=== PATIENT | male | born 1940 | race Caucasian/White ===

== ENCOUNTER → 2017-02-19 | Outpatient (CLI) | payer MEDICARE ==
[2017-02-19 11:06] LABS: Basophils # (A) 0.1 k/uL (0-0.2); Basophils % (A) 1 %; CHCM 32.8; Eosinophils # (A) 0.2 k/uL (0-0.7); Eosinophils % (A) 4 %; HCT 48.6 % (39.0-53.0); HDW 2.35; HGB 15.7 gm/dL (13.0-17.5); Luc # (Auto) 0.17; Luc % (Auto) 3; Lymphocytes # (A) 1.6 k/uL (1.0-4.8); Lymphocytes % (A) 25 %; MCH 29.7 pg (25.0-35.0); MCHC 32.2 g/dL (31.0-37.0); Mean Platelet Volume 7.3; Monocytes # (A) 0.6 k/uL (0-1.0); Monocytes % (A) 9 %; Neutrophils # (A) 3.8 k/uL (1.3-7.7); Neutrophils % (A) 59 %; RBC 5.28 m/uL (4.30-5.90); RDW 12.9 % (11.5-15.5); WBC 6.5 k/uL (3.8-10.6); WBC (Perox) 6.23
[2017-02-19 11:17] LABS: ALT 60 U/L (21-72); AST 32 U/L (17-59); Alkaline Phosphatase 88 U/L (38-126); Amylase 54 U/L (30-110); Anion Gap 10 mmol/L; Blood Urea Nitrogen 18 mg/dL (9-20); Calcium 9.7 mg/dL (8.4-10.2); Carbon Dioxide 27 mmol/L (22-30); Chloride 104 mmol/L (98-107); Glucose 111 mg/dL (74-99); Non-African American GFR(MDRD) >60 (>60 ml/min/1.73 sqM); Potassium 4.5 mmol/L (3.5-5.1); Sodium 141 mmol/L (137-145); Total Bilirubin 0.8 mg/dL (0.2-1.3); Total Protein 6.9 g/dL (6.3-8.2)
--- NOTE | 2017-02-19 13:00 | CT ---
EXAMINATION TYPE: CT abdomen w con DATE OF EXAM: 02/19/2017 11:52 AM COMPARISON: NONE INDICATION: Abdomen pain DLP: 793.9 mGycm, Automated exposure control for dose reduction was used. CONTRAST: 100 mL of Omnipaque 300. Study performed with Oral Contrast TECHNIQUE: Axial images were obtained from above the diaphragm to the pubic rami in the axial plane a t 5 mm thick sections. Reconstructed images are reviewed on the computer in the coronal plane. FINDINGS: Limited CT sections are obtained the lung bases. The lung bases are clear. CT ABDOMEN: Liver: Normal Spleen: Normal Pancreas: Normal Adrenal glands: The adrenal glands are normal. Gallbladder: Large gallstones at the neck of the gallbladder. Kidneys: No masses are evident. Hydronephrosis present. This is mild on the right and moderate on the left. Some peripelvic cyst may be present at these levels as well. Loops of bowel distended with oral contrast appear normal. No cysts are present. Delayed images were obtained through the kidneys, which remain unremarkable. Aorta: Vascular calcification is within the aorta. Inferior vena cava: Normal. 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 Additional nonunion fractures ar e in the posterior lateral right mid to lower ribs. There is likely some focal eventration of the rig ht diaphragm. IMPRESSIONS: 1. Cholelithiasis. 2. Normal. Loops of bowel. 3. Mild right and moderate to more marked hydronephrosis bilateral kidneys.
== END | disposition home or self-care (01) ==
LOC: RADCTMAIN 10:30
PROVIDERS: ATTEND Internal Medicine Geriatric Medicine
DX: K80.20 Calculus of gallbladder without cholecystitis without obstruction (principal); N13.30 Unspecified hydronephrosis
CPT/HCPCS: 80053; 82150; 83690; 85025; 74160; 36415; Q9967

== ENCOUNTER 2017-02-28 12:56 | Day surgery (SDC) | payer MEDICARE ==
[2017-02-28 13:19] VITALS: RESP 16
[2017-02-28] MEDS ORDERED: HYDROmorphone 1 MG/ML 1 ML SYRINGE IVP PRN (13:24)
[2017-02-28] MEDS ORDERED: LACTATED RINGERS 1,000 ML IV SCH (13:24)
[2017-02-28] MEDS ORDERED: SCOPOLAMINE 1.5MG/72HR PATCH TRANSDERM ONE (13:24)
[2017-02-28] MEDS ORDERED: ONDANSETRON 4 MG/2 ML VIAL IVP ONE (13:24)
[2017-02-28] MEDS ORDERED: LIDOCAINE 1% 20 ML VIAL (10MG/ML) FOR IV START INTRADERMA PRN (13:24)
[2017-02-28] MEDS ORDERED: MIDAZOLAM 2 MG/2 ML VIAL IV PRN (13:24)
[2017-02-28] MEDS ORDERED: DEXAMETHASONE SOD PHOSPHATE 10 MG/ML 1 ML VIAL IV ONE (13:24)
[2017-02-28] MEDS ORDERED: HEPARIN SODIUM,PORCINE 5,000 UNIT/ML 1 ML VIAL SQ ONE (14:22)
[2017-02-28] MEDS ORDERED: NEOSTIGMINE 1 MG/ML 10 ML VIAL ONE (17:28)
[2017-02-28] MEDS ORDERED: SUCCINYLCHOLINE CHLORIDE 100 MG/5 ML SYR IV ONE (17:28)
[2017-02-28] MEDS ORDERED: fentaNYL (PF) 50 MCG/ML 2 ML AMP ONE (17:28)
[2017-02-28] MEDS ORDERED: GLYCOPYRROLATE 0.2 MG/ML 2 ML VIAL ONE (17:28)
[2017-02-28] MEDS ORDERED: ROCURONIUM BROMIDE 10 MG/ML 10 ML VIAL IV ONE (17:28)
[2017-02-28] MEDS ORDERED: PROPOFOL 10 MG/ML 20 ML VIAL IV ONE (17:28)
[2017-02-28] MEDS ORDERED: MIDAZOLAM 2 MG/2 ML VIAL ONE (17:28)
[2017-02-28] MEDS ORDERED: LIDOCAINE 1% INJ 10MG/ML (20 ML MDV) ONE (17:28)
[2017-02-28] MEDS ORDERED: BUPIVACAIN-EPI 0.25%-1:200,000 30 ML VIAL SQ ONE (17:40)
[2017-02-28] MEDS ORDERED: SODIUM CHLORIDE 0.9% 50 ML with ceFAZolin 2,000 MG IV ONE ×2 (17:52)
[2017-02-28] MEDS ORDERED: LACTATED RINGERS 1,000 ML IV ONE (18:27)
--- NOTE | 2017-02-28 18:52 | P.OP ---
Date of Procedure: 02/28/17 Preoperative Diagnosis: Right upper quadrant pain Symptomatic cholelithiasis Postoperative Diagnosis: Same Procedure(s) Performed: Laparoscopic cholecystectomy Implants: NA Anesthesia: GETA, local Surgeon: Mary Ann Vargas Estimated Blood Loss (ml): 5 Pathology: other Condition: other (ASA3) Disposition: PACU Indications for Procedure: 76 years old male presents with right upper quadrant pain. Workup showed gallstones. Informed consent obtained and patient elected to undergo laparoscopic cholecystectomy possible open. The risks, benefits and potential complications including bleeding, infection, inadvertent bile duct injuries were explained to the patient Description of Procedure: The patient was brought to the operating room and placed in supine position with both arms out. General anesthesia with endotracheal intubation was performed as per anesthesia team. Chlorhexidine was used to prep the abdomen followed by application of sterile drapes. A timeout was performed to verify correct patient and correct procedure. Patient was confirmed to receive perioperative IV antibiotics , heparin 5000 units subcutaneous injection and bilateral SCDs were placed. A 5 mm skin incision was made below the left costal margin at the anterior axillary line. A Veress needle was inserted and pneumoperitoneum was established to a pressure of 15 mmHg. A 5 mm Optiview trocar was loaded on a 5 mm 30 laparoscope and the peritoneal cavity was entered under direct vision using the Optiview technique. Additional 5 mm trocar was placed in the supraumbilical location and two 5 mm trocars along the right subcostal margin. The left 5 mm trocar was upsized to 10mm. The patient was placed in reverse Trendelenburg with right side up. The fundus of the gallbladder was grasped with an atraumatic grasper and was retracted over the dome of the liver. The infundibulum was grasped with an atraumatic grasper and retracted towards the pelvis to expose the Calot's triangle. Lateral and medial peritoneal attachment of the gallbladder bladder was dissected. Circumferential dissection was carried out around the cystic artery and the cystic duct to obtain adequate length for clip application. All the surrounding fibrofatty tissue were removed. Critical view was obtained with cystic duct and cystic artery as the only two structures entering the gallbladder. Two clips were applied on the patient's side and one on the specimen side on the cystic duct first followed by the cystic artery. Endoshears were used to divide the cystic duct and the cystic artery. The gallbladder was taken off the liver bed using a L-hook. It was placed in an endocatch specimen bag and removed through the 10mm port. The gallbladder was passed off as a specimen. The abdominal cavity was inspected. The clips on the cystic duct and cystic artery stump were intact and no bleeding noted from the liver bed. All the trocar sites were examined and no evidence of bleeding. The 10mm port site was closed with two transfascial sutures of 0 Vicryl using a Adin Blu device. The pneumoperitoneum was evacuated and all the trocars were removed. Local anesthetic was infiltrated along the trocar sites and incisions were closed using 4-0 Monocryl followed by application of Dermabond skin glue. The sponge, instrument and needle count were correct x2. Patient was extubated and taken to post anesthesia care unit in stable condition.
[2017-02-28 18:53] VITALS: TEMP 96.8
[2017-02-28 21:01] VITALS: BP 151/75; PULSE 53
== END 2017-02-28 21:01 | disposition home or self-care (01) ==
LOC: OR 12:56
PROVIDERS: ATTEND Surgery
DX: K80.10 Calculus of gallbladder with chronic cholecystitis without obstruction (principal); I10 Essential (primary) hypertension; E78.00 Pure hypercholesterolemia, unspecified; I25.10 Atherosclerotic heart disease of native coronary artery without angina pectoris; K21.9 Gastro-esophageal reflux disease without esophagitis; N40.0 Benign prostatic hyperplasia without lower urinary tract symptoms; Z95.5 Presence of coronary angioplasty implant and graft; Z79.899 Other long term (current) drug therapy; Z79.82 Long term (current) use of aspirin; I25.2 Old myocardial infarction
CPT/HCPCS: 88304; 47562; J2250; J1644; J1100; J2710; J2405; J2001; J3010; J0690; J0330; J2704

== ENCOUNTER 2017-03-01 08:25 | Emergency (ER) | payer MEDICARE ==
[2017-03-01 08:37] VITALS: TEMP 98.9
--- NOTE | 2017-03-01 09:14 | ED ---
General Adult HPI - General Chief complaint: Urogenital Stated complaint: POST OP GALLBLADDER Sx, UNABLE TO URINATE Time Seen by Provider: 03/01/17 08:58 Source: patient, RN notes reviewed Mode of arrival: ambulatory Limitations: no limitations - History of Present Illness Initial comments: Patient is 76-year-old male who presents emergency room today with a chief complaint of urinary retention. He does admit that he had a cholecystectomy performed yesterday. He admits he was able to urinate before he left the hospital last night. States tried to get up multiple times throughout the night to go to the bathroom but was only able to void small amounts. States only able to afford small amount here in the emergency room. Patient was bladder scan showing greater than 900 mL. Patient does admit some discomfort in lower abdomen due to this. He denies any other complaints associated symptoms. Patient denies any recent fever, chills, shortness of breath, chest pain, back pain, nausea or vomiting, numbness or tingling, dysuria or hematuria , constipation or diarrhea, headaches or visual changes, or any other complaints. - Related Data Home Medications Medication Instructions Recorded Confirmed Atenolol 25 mg PO DAILY 02/28/17 02/28/17 Omeprazole [PriLOSEC] 20 mg PO AC-BRKFST 02/28/17 02/28/17 Quinapril HCl [Accupril] 20 mg PO BID 02/28/17 02/28/17 Simvastatin [Zocor] 20 mg PO HS 02/28/17 02/28/17 Tamsulosin [Flomax] 1 tab PO DAILY 02/28/17 02/28/17 Previous Rx's Medication Instructions Recorded Docusate [Colace] 100 mg PO BID #30 capsule 02/28/17 Hydrocodone/Acetaminophen [Moro 1 each PO Q6HR PRN #30 tab 02/28/17 5-325] Allergies Allergy/AdvReac Type Severity Reaction Status Date / Time No Known Allergies Allergy Verified 02/28/17 13:23 Review of Systems ROS Statement: Those systems with pertinent positive or pertinent negative responses have been documented in the HPI. ROS Other: All systems not noted in ROS Statement are negative. Past Medical History Past Medical History: Hearing Disorder / Deafness, Hypertension, Myocardial Infarction ([place]) Additional Past Medical History / Comment(s): HAD MS 09/01/98/ / BILAT HEARING AIDS. CTR BILAT. Last Myocardial Infarction Date:: 1997 History of Any Multi-Drug Resistant Organisms: None Reported Past Surgical History: Heart Catheterization, Hernia Repair, Orthopedic Surgery Additional Past Surgical History / Comment(s): RIGHT KNEE ARTHROSCOPY 6 YRS AGO Past Anesthesia/Blood Transfusion Reactions: No Reported Reaction Past Psychological History: No Psychological Hx Reported Smoking Status: Former smoker Past Alcohol Use History: Rare Past Drug Use History: None Reported General Exam - General Exam Comments Initial Comments: General: The patient is awake and alert, in no distress, and does not appear acutely ill. Eye: Pupils are equal, round and reactive to light, extra-ocular movements are intact. No nystagmus. There is normal conjunctiva bilaterally. No signs of icterus. Ears, nose, mouth and throat: There are moist mucous membranes and no oral lesions. Neck: The neck is supple, there is no tenderness or JVD. Cardiovascular: There is a regular rate and rhythm. No murmur, rub or gallop is appreciated. Respiratory: Lungs are clear to auscultation, respirations are non-labored, breath sounds are equal. No wheezes, stridor, rales, or rhonchi. Gastrointestinal: Surgical incisions appear to be healing well there is no redness and irritation or inflammation. No sign of infection. Patient does have some mild discomfort suprapubically over the bladder. No rebound tenderness. No guarding. No CVA tenderness. Musculoskeletal: Normal ROM, no tenderness. Strength 5/5. Sensation intact. Pulses equal bilaterally 2+. Neurological: A&O x 3. CN II-XII intact, There are no obvious motor or sensory deficits. Coordination appears grossly intact. Speech is normal. Skin: Skin is warm and dry and no rashes or lesions are noted. Psychiatric: Cooperative, appropriate mood & affect, normal judgment. Limitations: no limitations Course Vital Signs 03/01/17 08:35 Temperature 98.9 F Pulse Rate 57 L Respiratory 20 Rate Blood Pressure 196/88 O2 Sat by Pulse 95 Oximetry Medical Decision Making - Medical Decision Making Patient's a ladder scan shows greater than 900 mL. Patient's Craig is produced greater than 800 mL patient is feeling much better. Patient blood pressure improved after Craig insertion. Patient will be discharged home with leg bag. He is advised to contact a surgeon later today. Advised return for any other concerns. Disposition Clinical Impression: Urinary retention Disposition: HOME SELF-CARE Condition: Good Instructions: Urinary Retention in Men (ED) Additional Instructions: Please follow-up with her surgeon over the next 1-2 days. Please eat Craig in place until follow-up appointment. Please return to emergency room for any other concerns. Referrals: Segundo Phelps MD [Primary Care Provider] - 1-2 days Mary Ann Vargas MD [STAFF PHYSICIAN] - 1-2 days Time of Disposition: 09:45
[2017-03-01 10:13] VITALS: BP 152/70; PULSE 63; RESP 18
== END 2017-03-01 10:12 | disposition home or self-care (01) ==
LOC: EC 08:25
DX: R33.9 Retention of urine, unspecified (principal); I10 Essential (primary) hypertension; Z98.890 Other specified postprocedural states; Z87.891 Personal history of nicotine dependence; Z79.899 Other long term (current) drug therapy
CPT/HCPCS: 51702; 51798; 99283

== ENCOUNTER 2018-04-21 13:21 | Emergency (ER) | payer MEDICARE ==
[2018-04-21 13:35] VITALS: BP 152/75; PULSE 54; RESP 18; TEMP 97.8
[2018-04-21] MEDS ORDERED: LIDOCAINE 1% INJ 10MG/ML (20 ML MDV) SQ STA (14:06)
[2018-04-21] MEDS ORDERED: AMOXICILLIN 500MG STARTER PACK 3 CAP BTL PO STA (14:07)
--- NOTE | 2018-04-21 14:49 | ED ---
ENT HPI - General Chief complaint: ENT Stated complaint: Facial Injury Time Seen by Provider: 04/21/18 13:37 Source: patient, RN notes reviewed, old records reviewed Mode of arrival: ambulatory Limitations: no limitations - History of Present Illness Initial comments: Patient is a 69-year-old male with a history of lip laceration. Patient reports he was working with his stools and 1 pounds back forward and hit him in the mouth. He reports that he chipped teeth #8 and 9. He states that his teeth went through his lip. He reports a laceration over the lower lip and the inner lower lip. He does have a point with a dentist tomorrow. No other injury. - Related Data Home Medications Medication Instructions Recorded Confirmed Atenolol 25 mg PO DAILY 02/28/17 04/21/18 Omeprazole [PriLOSEC] 20 mg PO AC-BRKFST 02/28/17 04/21/18 Quinapril HCl [Accupril] 20 mg PO BID 02/28/17 04/21/18 Simvastatin [Zocor] 20 mg PO HS 02/28/17 04/21/18 Previous Rx's Medication Instructions Recorded Amoxicillin 500 mg PO Q8H #30 capsule 04/21/18 Allergies Allergy/AdvReac Type Severity Reaction Status Date / Time No Known Allergies Allergy Verified 04/21/18 13:35 Review of Systems ROS Statement: Those systems with pertinent positive or pertinent negative responses have been documented in the HPI. ROS Other: All systems not noted in ROS Statement are negative. Past Medical History Past Medical History: Hearing Disorder / Deafness, Hypertension, Myocardial Infarction ([place]) Additional Past Medical History / Comment(s): HAD [place] 09/01/98/ ANGIOPLASTY / BILAT HEARING AIDS. CTR BILAT. Last Myocardial Infarction Date:: 1997 History of Any Multi-Drug Resistant Organisms: None Reported Past Surgical History: Heart Catheterization, Hernia Repair, Orthopedic Surgery Additional Past Surgical History / Comment(s): RIGHT KNEE ARTHROSCOPY 6 YRS AGO Past Anesthesia/Blood Transfusion Reactions: No Reported Reaction Past Psychological History: No Psychological Hx Reported Smoking Status: Former smoker Past Alcohol Use History: Rare Past Drug Use History: None Reported General Exam - General Exam Comments Initial Comments: Patient's a pleasant 69-year-old male. No acute distress. Limitations: no limitations General appearance: alert, in no apparent distress Head exam: Present: atraumatic, normocephalic, normal inspection Eye exam: Present: normal appearance, PERRL, EOMI. Absent: scleral icterus, conjunctival injection, periorbital swelling ENT exam: Present: mucous membranes moist, other (Chipped tooth #8 and 9.). Absent: normal exam (2 similar laceration over the outer lower lip, through and through.) Neck exam: Present: normal inspection. Absent: tenderness, meningismus, lymphadenopathy Respiratory exam: Present: normal lung sounds bilaterally. Absent: respiratory distress, wheezes, rales, rhonchi, stridor Cardiovascular Exam: Present: regular rate, normal rhythm, normal heart sounds. Absent: systolic murmur, diastolic murmur, rubs, gallop, clicks GI/Abdominal exam: Present: soft, normal bowel sounds. Absent: distended, tenderness, guarding, rebound, rigid Extremities exam: Present: normal inspection, full ROM, normal capillary refill. Absent: tenderness, pedal edema, joint swelling, calf tenderness Back exam: Present: normal inspection Neurological exam: Present: alert, oriented X3, CN II-XII intact Psychiatric exam: Present: normal affect, normal mood Course Vital Signs 04/21/18 13:32 Temperature 97.8 F Pulse Rate 54 L Respiratory 18 Rate Blood Pressure 152/75 O2 Sat by Pulse 96 Oximetry Procedures - Laceration Laceration #1 Site: lip, oral Size (cm): 2 Description: linear Depth: [id number] Anesthetic Used: lidocaine 1% Anesthesia Technique: local infiltration Amount (mls): 3 Pre-repair: wound explored, irrigated extensively Type of Sutures: nylon, other (rapid) Size of Sutures: 5-0 Number of Sutures: 7 (4 absorbable) Technique: simple, interrupted Patient Tolerated Procedure: well, no complications Medical Decision Making - Medical Decision Making 77-year-old male presents emergency Department chief complaint of a lip laceration and broken teeth. Ventricular particles and it came back and him in the mouth. His fractured teeth #8 and 9. We'll start the Patient on antibiotics. I did thoroughly irrigate and clean the wound. Laceration was repaired with 4 internal sutures and 3 external sutures. Discussed appropriate follow-up with his dentist. Discussed return parameters. Patient understands treatment plan will comply. Disposition Clinical Impression: Broken teeth, Lip laceration Disposition: HOME SELF-CARE Condition: Good Instructions: Laceration (ED) Additional Instructions: Patient should do salt water rinses of the mouth periodically throughout today. Soft foods. No use of straw. Patient should take the antibiotics as prescribed. Cool compresses over the lip today. Return to emergency department if any alarming signs or symptoms occur. Please return to the emergency room in 7 days to have sutures removed. Please leave wound covered for the first 24-48 hours and then leave open to air after that time. Please use clean soap and water to clean the suture area to prevent scabbing over the top of your sutures. Please watch for any signs of infection which may include but not limited to increased pain, swelling, redness, fever or chills. Please return to the emergency room if any signs of infection do occur. Please return to the emergency room for any other concerns or complications. Prescriptions: Amoxicillin 500 mg PO Q8H #30 capsule Is patient prescribed a controlled substance at d/c from ED?: No When asked, does pt state using other controlled substances?: No If prescribed controlled substance>3 days was MAPS reviewed?: No If opioid is for acute pain is fill amount 7 days or less?: No If Rx opioid, was Start Talking consent form obtained?: No Referrals: Segundo Phelps MD [Primary Care Provider] - 1-2 days Time of Disposition: 14:48
== END 2018-04-21 14:55 | disposition home or self-care (01) ==
LOC: EC 13:21
DX: S02.5XXA Fracture of tooth (traumatic), initial encounter for closed fracture (principal); S01.511A Laceration without foreign body of lip, initial encounter; I10 Essential (primary) hypertension; I25.2 Old myocardial infarction; H91.90 Unspecified hearing loss, unspecified ear; Z87.891 Personal history of nicotine dependence; Z79.899 Other long term (current) drug therapy; W22.8XXA Striking against or struck by other objects, initial encounter; Y92.71 Barn as the place of occurrence of the external cause
CPT/HCPCS: 99283; 12011; J2001

== ENCOUNTER → 2018-08-28 | Outpatient (CLI) | payer MEDICARE ==
[2018-08-28 17:21] LABS: HGB 16.6 gm/dL (13.0-17.5); MCHC 33.2 g/dL (31.0-37.0); MCV 90.4 fL (80.0-100.0); Mean Platelet Volume 7.5; Platelet Count 209 k/uL (150-450); RBC 5.52 m/uL (4.30-5.90); RDW 13.4 % (11.5-15.5); WBC 9.2 k/uL (3.8-10.6)
[2018-08-28 17:40] LABS: Calcium 10.2 mg/dL (8.4-10.2); Potassium 4.5 mmol/L (3.5-5.1)
== END | disposition home or self-care (01) ==
LOC: LABWHC1 16:52
PROVIDERS: ATTEND Internal Medicine Interventional Cardiology
DX: I25.10 Atherosclerotic heart disease of native coronary artery without angina pectoris (principal)
CPT/HCPCS: 36415; 80048; 84484; 85027

== ENCOUNTER 2018-09-10 10:35 | Day surgery (SDC) | payer MEDICARE ==
[2018-09-03 11:34] VITALS: BMI 25.8
[~2018-09-10 10:35] MED LIST: ALPRAZolam 0.25 MG TAB PO PRN; ALPRAZolam 0.5 MG TAB PO PRN; ASPIRIN 325 MG TAB PO ONE; ATORVASTATIN 80 MG TAB PO ONE; NITROGLYCERIN SL TABS 0.4 MG TAB SUBLINGUAL PRN; SODIUM CHLORIDE 0.9% 1,000 ML in EMPTY BAG 1 BAG IV ONE
[2018-09-10 11:05] VITALS: TEMP 98.2
[2018-09-10] MEDS ORDERED: MIDAZOLAM 2 MG/2 ML VIAL ONE (11:56)
[2018-09-10] MEDS ORDERED: diphenhydrAMINE 50 MG/ML 1 ML VIAL ONE (11:56)
[2018-09-10] MEDS ORDERED: VERAPAMIL 2.5 MG/ML 2 ML AMP ONE (11:56)
[2018-09-10] MEDS ORDERED: LIDOCAINE 1% INJ 10MG/ML (20 ML MDV) ONE (11:56)
[2018-09-10] MEDS ORDERED: MIDAZOLAM 2 MG/2 ML VIAL IV ONE (12:25)
[2018-09-10] MEDS ORDERED: diphenhydrAMINE 50 MG/ML 1 ML VIAL IVP ONE (12:25)
[2018-09-10] MEDS ORDERED: LIDOCAINE 1% INJ 10MG/ML (20 ML MDV) SQ ONE (12:34)
[2018-09-10] MEDS ORDERED: VERAPAMIL SYRINGE (5 MG/10 ML) INTRAARTER ONE (12:34)
[2018-09-10] MEDS ORDERED: HEPARIN SODIUM 1,000 UN/ML (10ML VL) ONE (12:34)
[2018-09-10] MEDS ORDERED: HEPARIN SODIUM 1,000 UN/ML (10ML VL) IV ONE (12:38)
[2018-09-10] MEDS ORDERED: IOPAMIDOL-370 100ML BTL INJ ONE (12:51)
[2018-09-10] MEDS ORDERED: RX INFO: IV CONTRAST WAS GIVEN 1 EACH MISC MISCELLANE PRN (13:16)
[2018-09-10] MEDS ORDERED: SODIUM CHLORIDE 0.9% 1,000 ML IV SCH (13:30)
--- NOTE | 2018-09-10 14:13 | CC ---
CARDIAC CATHETERIZATION REPORT DATE OF SERVICE: 09/10/2018 PROCEDURE: Left heart catheterization, coronary angiography, left ventriculography. PERFORMED BY: Dr. Chapin Azul. CLINICAL INFORMATION: Mr. Galo Brown is a 78-year-old gentleman with a known history of CAD, previous anterolateral TN with a disease involving a major diagonal branch, which was a culprit vessel. This was stented with a bare metal stent in 1997 and since then he is noted to have an anteroapical hypokinesia with ejection fraction in the 40%-45% range. He has been doing fairly well, but recently had a severe bout of diaphoresis, chest pressure after doing some heavy work. The symptoms have been occurring more frequently and therefore he was advised cardiac catheterization after due discussion. Risks, benefits, options and rationale were explained to the patient and . PROCEDURE NOTE: Under local anesthesia and strict aseptic precautions, a 6-Austrian introducer was placed in the right radial artery. Using a JL 3.5 and JR4 Flaquito type catheters, I performed coronary angiography and a pigtail catheter was used to perform left ventriculography. The sheath was taken out and TR band applied as per protocol. Patient tolerated procedure well without complication. He received include 2500 units of heparin intravenously. Results were discussed with the patient and family. CARDIAC CATHETERIZATION FINDINGS: The left ventricle end-diastolic pressure was 30 mmHg without any gradient across aortic valve. CORONARY ANGIOGRAPHY FINDINGS: RIGHT CORONARY ARTERY: Large dominant vessel has an ostial lesion of no more than 30%- 40% with some calcification involving the aorta at the origin of the right coronary artery. I had no difficulty cannulating it with a Flaquito catheter, but there was not as much reflux and there was no damping of pressures. The lesion is less than 35% probably, but there is calcification. The proximal and mid RCA are free of significant disease and distally bifurcates into a good-sized PDA and PLV, both of which are free of significant disease. There is no significant disease in the dominant RCA. There is an ostial lesion of probably 35%. LEFT MAIN CORONARY ARTERY: Short patent disease-free vessel that immediately bifurcates to LAD and circumflex. Left main itself is free of significant disease. LEFT ANTERIOR DESCENDING CORONARY ARTERY: Good caliber vessel extends along the anterior wall. It gives off a diagonal branch proximally, which has a stent in it and the stent is widely patent with brisk flow. The LAD has no significant disease. Mild calcification in the vessel all the way to the apex to supply the inferoapical portion of left ventricle. No significant disease in LAD. Diagonal is patent with a 35% narrowing and the previous stented area is widely patent. LEFT POSTERIOR CIRCUMFLEX CORONARY ARTERY: Nondominant vessel, gives off a large obtuse marginal that runs laterally in the secondary branch and these branches are free of significant disease. Only minor irregularities are noted. LEFT VENTRICULOGRAM: This was performed in 30 degree SPENCE projection, revealed left ventricle which is of normal size with severe hypokinesia involving the distal anteroapical wall as well as the distal inferoapical wall. Ejection fraction is about 40%-45% without mitral regurgitation. FINAL IMPRESSION: This patient has a right dominant system. There is a 40% or less ostial disease involving the right coronary artery. Left system has no significant disease. The previously stented diagonal branch is widely patent. The filling pressures are normal. Ejection fraction of 40% to 45% with anteroapical and inferoapical severe hypokinesia, which is unchanged from before. There is no mitral regurgitation. RECOMMENDATION: Findings were discussed with the patient and family. I am recommending continued medical therapy with risk factor modification. Patient can be discharged later on today. Moderate conscious sedation time was 23 minutes. Patient was administered Versed and Benadryl and oxygen saturation, hemodynamics and EKG were monitored closely. MMODL / IJN: [id number] /
[2018-09-10 14:16] VITALS: RESP 16
[2018-09-10 18:29] VITALS: BP 166/79; PULSE 68
== END 2018-09-10 18:29 | disposition home or self-care (01) ==
LOC: CATHCVL 10:35
PROVIDERS: ATTEND Internal Medicine Interventional Cardiology
DX: I25.110 Atherosclerotic heart disease of native coronary artery with unstable angina pectoris (principal); I25.2 Old myocardial infarction; I10 Essential (primary) hypertension; E78.5 Hyperlipidemia, unspecified; E78.00 Pure hypercholesterolemia, unspecified; Z79.82 Long term (current) use of aspirin; Z72.0 Tobacco use; Z79.899 Other long term (current) drug therapy; Z95.5 Presence of coronary angioplasty implant and graft
CPT/HCPCS: 93458; C1769; J2250; J1200; J2001; J1644; Q9967

== ENCOUNTER 2019-10-13 11:54 | Observation (INO) | payer MEDICARE ==
[2019-10-13] MEDS ORDERED: SODIUM CHLORIDE 0.9% 1,000 ML IV ONE (12:19)
--- NOTE | 2019-10-13 12:25 | ED ---
General Adult HPI - General Chief complaint: Chest Pain Stated complaint: Chest pain Time Seen by Provider: 10/13/19 12:00 Source: patient, EMS, RN notes reviewed, old records reviewed Mode of arrival: EMS Limitations: no limitations - History of Present Illness Initial comments: This is a 79-year-old male with past medical history significant for coronary artery disease. Patient was grinding meat at home when he became very lightheaded and felt the need to sit down. Patient states shortly thereafter became diaphoretic and had some anterior chest pain. Patient states the chest pain lasted about 10 minutes and when he sat down he took his blood pressure he said it was in the 60 systolic and his heart rate was 40. Patient states his heart rate was never that slow. Patient states he never had any palpitations. Patient denies any shortness of breath or difficulty breathing. Patient states he feels at his baseline currently. Patient states she had an episode similar to this except it was worse one year ago. Patient states they never did find a reason for it. Patient denies any abdominal pain denies any nausea vomiting diarrhea. Patient states he has been eating normally and drinking normally. Patient denies any fever or chills. - Related Data Home Medications Medication Instructions Recorded Confirmed Atenolol 25 mg PO DAILY 02/28/17 09/10/18 Omeprazole [PriLOSEC] 20 mg PO AC-[id number] 02/28/17 09/10/18 Quinapril HCl [Accupril] 20 mg PO BID 02/28/17 09/10/18 Simvastatin [Zocor] 20 mg PO HS 02/28/17 09/10/18 Aspirin [Adult Low Dose Aspirin EC] 81 mg PO DAILY 09/03/18 09/10/18 Cholestyramine (with Sugar) 4 gm PO HS 09/03/18 09/10/18 [Cholestyramine Packet] Tamsulosin [Flomax] 0.4 mg PO DAILY 09/03/18 09/10/18 hydrALAZINE HCL [Apresoline] 25 mg PO TID 09/03/18 09/10/18 Allergies Allergy/AdvReac Type Severity Reaction Status Date / Time peanut Allergy lips Verified 10/13/19 12:00 swollen Review of Systems ROS Statement: Those systems with pertinent positive or pertinent negative responses have been documented in the HPI. ROS Other: All systems not noted in ROS Statement are negative. 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 Last Myocardial Infarction Date:: 1997 History of Any Multi-Drug Resistant Organisms: None Reported Past Surgical History: Cholecystectomy, Heart Catheterization, Hernia Repair, Orthopedic Surgery Additional Past Surgical History / Comment(s): RIGHT KNEE ARTHROSCOPY 6 YRS AGO Past Anesthesia/Blood Transfusion Reactions: No Reported Reaction Past Psychological History: No Psychological Hx Reported Smoking Status: Former smoker - Past Family History Mother Family Medical History: No Reported History General Exam - General Exam Comments Initial Comments: GENERAL: Patient is well-developed and well-nourished. Patient is nontoxic and well- hydrated and is in no acute distress. ENT: Neck is soft and supple. No significant lymphadenopathy is noted. Oropharynx is clear. Moist mucous membranes. Neck has full range of motion without eliciting any pain. EYES: The sclera were anicteric and conjunctiva were pink and moist. Extraocular movements were intact and pupils were equal round and reactive to light. Eyelids were unremarkable. PULMONARY: Unlabored respirations. Good breath sounds bilaterally. No audible rales rhonchi or wheezing was noted. CARDIOVASCULAR: Patient's heart rate is bradycardic at about 55 beats a minute. ABDOMEN: Soft and nontender with normal bowel sounds. No palpable organomegaly was noted. There is no palpable pulsatile mass. SKIN: Skin is clear with no lesions or rashes and otherwise unremarkable. NEUROLOGIC: Patient is alert and oriented x3. Cranial nerves II through XII are grossly intact. Motor and sensory are also intact. Normal speech, volume and content. Symmetrical smile. MUSCULOSKELETAL: Normal extremities with adequate strength and full range of motion. No lower extremity swelling or edema. No calf tenderness. LYMPHATICS: No significant lymphadenopathy is noted PSYCHIATRIC: Normal psychiatric evaluation. Limitations: no limitations Course Vital Signs 10/13/19 10/13/19 12:00 13:11 Temperature 98.3 F Pulse Rate 54 L Pulse Rate [ 50 L Sitting] Pulse Rate [ 52 L Standing] Pulse Rate [ 51 L Supine] Respiratory 18 Rate Blood Pressure 138/75 Blood Pressure 139/73 [Sitting] Blood Pressure 145/70 [Standing] Blood Pressure 127/67 [Supine] O2 Sat by Pulse 96 Oximetry Medical Decision Making - Medical Decision Making EKG shows sinus bradycardia with occasional PAC at 54 bpm SC interval 274 QRS is 102 QT interval 434 QTC is 411. Patient's EKG was compared to an old EKG there are inverted T waves in precordial leadsare seen previously. Recent chest x-ray shows no acute abnormality. I will begin the room to reevaluate the patient he continued to be asymptomatic during his ER stay. I spoke with Dr. Phelps he agreed to admit the patient admitted the patient wrote admitting orders. I did not give the patient an aspirin because he took less but just prior to arrival. I did not give the patient a nitroglycerin because earlier today he indicated that his blood pressure was down in the 60s systolic and the patient was symptom-free in the emergency department - Lab Data Result diagrams: 10/13/19 12:00 10/13/19 12:00 Lab Results 10/13/19 10/13/19 10/13/19 Range/Units 12:00 12:00 12:00 WBC 6.6 (3.8-10.6) k/uL RBC 5.58 (4.30-5.90) m/uL Hgb 16.4 (13.0-17.5) gm/dL Hct 50.8 (39.0-53.0) % MCV 91.1 (80.0-100.0) fL MCH 29.4 (25.0-35.0) pg MCHC 32.2 (31.0-37.0) g/dL RDW 12.7 (11.5-15.5) % Plt Count 194 (150-450) k/uL Neutrophils % 67 % Lymphocytes % 20 % Monocytes % 8 % Eosinophils % 2 % Basophils % 1 % Neutrophils # 4.5 (1.3-7.7) k/uL Lymphocytes # 1.3 (1.0-4.8) k/uL Monocytes # 0.5 (0-1.0) k/uL Eosinophils # 0.1 (0-0.7) k/uL Basophils # 0.0 (0-0.2) k/uL PT 12.2 H (9.0-12.0) sec INR 1.2 H (<1.2) APTT 25.7 (22.0-30.0) sec Sodium 137 (137-145) mmol/L Potassium 4.6 (3.5-5.1) mmol/L Chloride 106 (98-107) mmol/L Carbon Dioxide 23 (22-30) mmol/L Anion Gap 8 mmol/L BUN 22 H (9-20) mg/dL Creatinine 0.88 (0.66-1.25) mg/dL Est GFR (CKD-EPI)AfAm >90 (>60 ml/min/1.73 sqM) Est GFR (CKD-EPI)NonAf 81 (>60 ml/min/1.73 sqM) Glucose 161 H (74-99) mg/dL Calcium 10.0 (8.4-10.2) mg/dL Magnesium 2.0 (1.6-2.3) mg/dL Total Bilirubin 0.9 (0.2-1.3) mg/dL AST 33 (17-59) U/L ALT 39 (21-72) U/L Alkaline Phosphatase 72 (38-126) U/L Troponin I (0.000-0.034) ng/mL Total Protein 7.0 (6.3-8.2) g/dL Albumin 4.3 (3.5-5.0) g/dL 10/13/19 Range/Units 12:00 WBC (3.8-10.6) k/uL RBC (4.30-5.90) m/uL Hgb (13.0-17.5) gm/dL Hct (39.0-53.0) % MCV (80.0-100.0) fL MCH (25.0-35.0) pg MCHC (31.0-37.0) g/dL RDW (11.5-15.5) % Plt Count (150-450) k/uL Neutrophils % % Lymphocytes % % Monocytes % % Eosinophils % % Basophils % % Neutrophils # (1.3-7.7) k/uL Lymphocytes # (1.0-4.8) k/uL Monocytes # (0-1.0) k/uL Eosinophils # (0-0.7) k/uL Basophils # (0-0.2) k/uL PT (9.0-12.0) sec INR (<1.2) APTT (22.0-30.0) sec Sodium (137-145) mmol/L Potassium (3.5-5.1) mmol/L Chloride (98-107) mmol/L Carbon Dioxide (22-30) mmol/L Anion Gap mmol/L BUN (9-20) mg/dL Creatinine (0.66-1.25) mg/dL Est GFR (CKD-EPI)AfAm (>60 ml/min/1.73 sqM) Est GFR (CKD-EPI)NonAf (>60 ml/min/1.73 sqM) Glucose (74-99) mg/dL Calcium (8.4-10.2) mg/dL Magnesium (1.6-2.3) mg/dL Total Bilirubin (0.2-1.3) mg/dL AST (17-59) U/L ALT (21-72) U/L Alkaline Phosphatase (38-126) U/L Troponin I <0.012 (0.000-0.034) ng/mL Total Protein (6.3-8.2) g/dL Albumin (3.5-5.0) g/dL Disposition Clinical Impression: Lightheadedness, Chest pain, Bradycardia Disposition: ADMITTED IP TO THIS HOSP Referrals: Segundo Phelps MD [Primary Care Provider] - 1-2 days Time of Disposition: 14:11
[2019-10-13 12:34] LABS: Basophils % (A) 1 %; Eosinophils # (A) 0.1 k/uL (0-0.7); Eosinophils % (A) 2 %; HCT 50.8 % (39.0-53.0); HGB 16.4 gm/dL (13.0-17.5); Lymphocytes # (A) 1.3 k/uL (1.0-4.8); Lymphocytes % (A) 20 %; MCH 29.4 pg (25.0-35.0); MCHC 32.2 g/dL (31.0-37.0); MCV 91.1 fL (80.0-100.0); Mean Platelet Volume 7.6; Monocytes # (A) 0.5 k/uL (0-1.0); Monocytes % (A) 8 %; Neutrophils # (A) 4.5 k/uL (1.3-7.7); Neutrophils % (A) 67 %; Platelet Count 194 k/uL (150-450); RBC 5.58 m/uL (4.30-5.90); RDW 12.7 % (11.5-15.5); WBC 6.6 k/uL (3.8-10.6)
--- NOTE | 2019-10-13 12:40 | XR ---
EXAMINATION TYPE: XR chest 2V DATE OF EXAM: 10/13/2019 COMPARISON: CT dated 02/19/2017 HISTORY: Chest pain and weakness TECHNIQUE: Frontal and lateral views of the chest are obtained. 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 Remainder the lungs are clear. Cardiomediast inal silhouette is within normal limits. Osseous structures are grossly intact with generalized demin eralization. 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 No acute process.
[2019-10-13 12:46] LABS: ALT 39 U/L (21-72); AST 33 U/L (17-59); African American GFR (CKD) >90 (>60 ml/min/1.73 sqM); Albumin 4.3 g/dL (3.5-5.0); Alkaline Phosphatase 72 U/L (38-126); Anion Gap 8 mmol/L; Blood Urea Nitrogen 22 mg/dL (9-20); Carbon Dioxide 23 mmol/L (22-30); Chloride 106 mmol/L (98-107); Glucose 161 mg/dL (74-99); Non-African American GFR(CKD) 81 (>60 ml/min/1.73 sqM); Potassium 4.6 mmol/L (3.5-5.1); Sodium 137 mmol/L (137-145); Total Bilirubin 0.9 mg/dL (0.2-1.3)
[2019-10-13 12:52] LABS: INR 1.2 (<1.2); Partial Thromboplastin Time 25.7 sec (22.0-30.0); Prothrombin Time 12.2 sec (9.0-12.0)
[2019-10-13] MEDS ORDERED: NITROGLYCERIN SL TABS 0.4 MG TAB SUBLINGUAL PRN (14:11)
[2019-10-13] MEDS: ATORVASTATIN 10 MG TAB PO SCH (19:50)
[2019-10-13] MEDS: LISINOPRIL 20 MG TAB PO SCH (19:50)
[2019-10-13] MEDS: CHOLESTYRAMINE (WITH SUGAR) 4 GM PACKET PO SCH (19:50)
[2019-10-13] MEDS: hydrALAZINE HCL 25 MG TAB PO SCH (19:50)
[2019-10-14 01:37] LABS: Hemoglobin A1C 6.3 % (4.0-6.0)
[2019-10-14 07:28] LABS: Cholesterol 107 mg/dL (<200); HDL Cholesterol 36 mg/dL (40-60); LDL Cholesterol,Calculated 52 mg/dL (0-99); Triglycerides 94 mg/dL (<150)
--- NOTE | 2019-10-14 11:00 | ECHOF ---
Referral Reason:near syncope MEASUREMENTS -------- HEIGHT: 177.8 cm WEIGHT: 81.6 kg BP: 120/74 RVIDd: 4.4 cm (< 3.3) IVSd: 1.6 cm (0.6 - 1.1) LVIDd: 4.4 cm (3.9 - 5.3) LVPWd: 1.6 cm (0.6 - 1.1) IVSs: 2.7 cm LVIDs: 2.9 cm LVPWs: 2.2 cm LAESV Index (A-L): 36.76 ml/m Ao Diam: 3.2 cm (2.0 - 3.7) AV Cusp: 2.1 cm (1.5 - 2.6) LA Diam: 4.0 cm (2.7 - 3.8) MV EXCURSION: 13.784 mm (> 18.000) MV EF SLOPE: 80 mm/s (70 - 150) EPSS: 0.7 cm MV E Rakan: 0.96 m/s MV DecT: 300 ms MV A Rakan: 1.28 m/s MV E/A Ratio: 0.75 RAP: 5.00 mmHg RVSP: 41.72 mmHg FINDINGS -------- Resting bradycardia (HR<60bpm). This was a technically difficult study with suboptimal parasternal views. The left ventricular size is normal. There is moderate concentric left ventricular hypertrophy. O verall left ventricular systolic function is low-normal with, an EF between 50 - 55 %. Increased La p Grade II Diastolic Dysfunction. Apical anterior LV wall motion is hypokinetic. Apical lateral LV wall motion is hypokinetic. The right ventricle is mildly enlarged. LA is moderately dilated 34-39 ml/m2 The right atrium is mildly enlarged. 5.0mg of Lumason was utilized for enhancement of images Interatrial and interventricular septum intact. There is mild aortic valve sclerosis. There is no evidence of aortic regurgitation. There is no e vidence of aortic stenosis. Mild mitral annular calcification present. Mild mitral regurgitation is present. Mild tricuspid regurgitation present. There is mild pulmonary hypertension. The right ventricular systolic pressure, as measured by Doppler, is 41.72mmHg. The aortic root size is normal. IVC Not well visulized. There is no pericardial effusion. CONCLUSIONS -------- 1. Resting bradycardia (HR<60bpm). 2. This was a technically difficult study with suboptimal parasternal views. 3. The left ventricular size is normal. 4. There is moderate concentric left ventricular hypertrophy. 5. Overall left ventricular systolic function is low-normal with, an EF between 50 - 55 %. 6. Increased Lap Grade II Diastolic Dysfunction. 7. Apical anterior LV wall motion is hypokinetic. 8. Apical lateral LV wall motion is hypokinetic. 9. The right ventricle is mildly enlarged. 10. LA is moderately dilated 34-39 ml/m2 11. The right atrium is mildly enlarged. 12. 5.0mg of Lumason was utilized for enhancement of images 13. Interatrial and interventricular septum intact. 14. There is mild aortic valve sclerosis. 15. There is no evidence of aortic regurgitation. 16. There is no evidence of aortic stenosis. 17. Mild mitral annular calcification present. 18. Mild mitral regurgitation is present. 19. Mild tricuspid regurgitation present. 20. There is mild pulmonary hypertension. 21. The right ventricular systolic pressure, as measured by Doppler, is 41.72mmHg. 22. The aortic root size is normal. 23. IVC Not well visulized. 24. There is no pericardial effusion. APPIAN DEVELOPER: Della Hawk RDCS
[2019-10-14] MEDS: TAMSULOSIN 0.4 MG CAP.ER.24H PO SCH (12:33)
[2019-10-14] MEDS: LISINOPRIL 20 MG TAB PO SCH ×2 (12:33→21:19)
[2019-10-14] MEDS: ASPIRIN 325 MG TAB PO SCH (12:33)
[2019-10-14] MEDS: hydrALAZINE HCL 25 MG TAB PO SCH ×3 (12:33→21:19)
[2019-10-14] MEDS: ATENOLOL 12.5 MG TAB PO SCH (12:33)
--- NOTE | 2019-10-14 12:35 | P.HPIM ---
History of Present Illness H&P Date: 10/14/19 Chief Complaint: Lightheaded This is an 79-year-old male with past medical history of hypertension, CT status post heart catheterization and angioplasty and 1998, hearing loss. Patient underwent an outpatient heart catheterization in August [address] USMAN Azul which revealed 40% or less ostial disease involving the right coronary artery, left system has no significant disease. Previously stented diagonal branch is widely patent. Feeling pressures are normal. EF is 40-45% with anterior apical and inferior apical severe hypokinesia which is unchanged from before. No mitral regurgitation. Patient developed lightheadedness yesterday and had to sit down. His blood pressure was low. He was feeling tired. He denied having any chest pain but had some discomfort in the epigastric area. He denies any nausea, vomiting, diarrhea. No fever or chills. He felt like he was eating and drinking normally yesterday. He denies any loss of consciousness. He last saw Dr. SUMAN Azul in July for regular checkup and no medication changes were made at that time. Patient's symptoms have resolved at the time of this evaluation. Patient's is concerned that these are the same symptoms that warranted him to have a heart catheterization last year. Patient came into [facility] emergency center for evaluation. He was afebrile, heart rate in the 50s, orthostatics were negative. Initial blood pressure 138/75, pulse ox 96% on room air. EKG was a sinus bradycardia with occasional PACs. Chest x-ray showed no acute abnormality. CBC was unremarkable. He went 22 and creatinine 0.88, blood sugar 161. Liver enzymes were normal, troponin negative. Patient was placed on the observation unit and cardiology consult requested. Subsequent troponins have been negative on 2 draws. Triglycerides 94, cholesterol 107, LDL 52, HDL 36. Echocardiogram reveals EF of 50-55%, moderate concentric left ventricular hypertrophy, mild aortic valve sclerosis, mild mitral regurgitation, mild tricuspid regurgitation, mild pulmonary hypertension. Heart rate has been running in the 50s and 60s, blood pressure 168/80. Review of Systems Constitutional: Reports weakness, Denies anorexia, Denies chills, Denies fatigue, Denies fever, Denies poor appetite Eyes: denies blurred vision, denies pain Ears, nose, mouth and throat: Reports vertigo Cardiovascular: Reports lightheadedness, Denies chest pain, Denies decreased exercise tolerance, Denies dyspnea on exertion, Denies edema, Denies shortness of breath, Denies syncope Respiratory: Denies cough, Denies cough with sputum, Denies excessive sputum, Denies hemoptysis, Denies home oxygen, Denies respiratory infections, Denies wheezing Gastrointestinal: Denies abdominal pain, Denies diarrhea, Denies loss of appetite, Denies nausea, Denies vomiting Genitourinary: Denies dysuria, Denies urinary frequency, Denies urinary retention Musculoskeletal: Denies gait dysfunction, Denies muscle weakness, Denies myalgias Integumentary: Denies pruritus, Denies rash, Denies wounds Neurological: Denies change in mentation, Denies change in speech, Denies numbness, Denies weakness Psychiatric: Denies anxiety, Denies depression Endocrine: Denies fatigue, Denies weight change Past Medical History Past Medical History: Hearing Disorder / Deafness, Hypertension, Myocardial Infarction (CT) Additional Past Medical History / Comment(s): HAD CT 09/01/98/ 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 Last Myocardial Infarction Date:: 1997 History of Any Multi-Drug Resistant Organisms: None Reported Past Surgical History: Cholecystectomy, Heart Catheterization, Hernia Repair, Orthopedic Surgery Additional Past Surgical History / Comment(s): RIGHT KNEE ARTHROSCOPY 6 YRS AGO Past Anesthesia/Blood Transfusion Reactions: No Reported Reaction Past Psychological History: No Psychological Hx Reported Smoking Status: Never smoker Past Alcohol Use History: Rare Additional Past Alcohol Use History / Comment(s): Patient is a nonsmoker, no marijuana nor illicit drug use, no alcohol abuse. Patient is retired and lives at home with his . Past Drug Use History: None Reported - Past Family History Mother Family Medical History: No Reported History, Cancer Additional Family Medical History / Comment(s): at 55 from breast cancer. Father Family Medical History: Congestive Heart Failure (CHF), Diabetes Mellitus Additional Family Medical History / Comment(s): at 65 with CHF. Brother(s) Additional Family Medical History / Comment(s): Patient has 1 brother and 2 sisters with no major medical problems including heart disease. He has 3 children with no major medical problems. Medications and Allergies Home Medications Medication Instructions Recorded Confirmed Type Atenolol 12.5 mg PO DAILY 02/28/17 10/13/19 History Quinapril HCl [Accupril] 20 mg PO BID 02/28/17 10/13/19 History Simvastatin [Zocor] 20 mg PO HS 02/28/17 10/13/19 History Cholestyramine (with Sugar) 4 gm PO HS 09/03/18 10/13/19 History [Cholestyramine Packet] Tamsulosin [Flomax] 0.4 mg PO DAILY 09/03/18 10/13/19 History hydrALAZINE HCL [Apresoline] 25 mg PO TID 09/03/18 10/13/19 History Allergies Allergy/AdvReac Type Severity Reaction Status Date / Time almond Allergy LIPS SWELL Verified 10/13/19 14:44 peanut Allergy LIPS SWELL Verified 10/13/19 14:44 Physical Exam Vitals: Vital Signs Temp Pulse Pulse Pulse Pulse Pulse Resp 10/14/19 07:23 10/14/19 07:19 97.8 F 61 18 10/14/19 04:00 98.0 F 67 16 10/14/19 03:44 17 10/13/19 23:07 17 10/13/19 23:05 98.0 F 70 17 10/13/19 20:00 16 10/13/19 19:20 97.6 F 65 16 10/13/19 15:06 97.8 F 10/13/19 13:11 50 L 52 L 51 L 10/13/19 12:00 98.3 F 54 L 18 BP BP BP BP BP Pulse Ox 10/14/19 07:23 94 L 10/14/19 07:19 163/66 94 L 10/14/19 04:00 120/74 98 10/14/19 03:44 10/13/19 23:07 10/13/19 23:05 149/68 96 10/13/19 20:00 10/13/19 19:20 162/71 98 10/13/19 15:06 149/71 97 10/13/19 13:11 139/73 145/70 127/67 10/13/19 12:00 138/75 96 Intake and Output 10/13/19 10/14/19 10/14/19 22:59 06:59 14:59 Intake Total 222 Balance 222 Intake: Oral 222 Other: Voiding Method Toilet # Voids 1 Gen: This is an 79-year-old male. He is sitting up in bed and appears to be comfortable and in no acute distress. Patient's and sister are at the bedside. HEENT: Head is atraumatic, normocephalic. Pupils equal, round. Sclerae is anicteric. NECK: Supple. No JVD. No lymphadenopathy. No thyromegaly. LUNGS: Clear to auscultation. No wheezes or rhonchi. No intercostal retractions. HEART: Regular rate and rhythm. No murmur. ABDOMEN: Soft. Bowel sounds are present. No masses. No tenderness. EXTREMITIES: No pedal edema. No calf tenderness. Dorsalis pedis +2 bilaterally. NEUROLOGICAL: Patient is awake, alert and oriented x3. Cranial nerves 2 through 12 are grossly intact. Results CBC & Chem 7: 10/13/19 12:00 10/13/19 12:00 Labs: Abnormal Lab Results - Last 24 Hours (Table) 10/13/19 10/13/19 10/13/19 Range/Units 12:00 12:00 12:00 PT 12.2 H (9.0-12.0) sec INR 1.2 H (<1.2) BUN 22 H (9-20) mg/dL Glucose 161 H (74-99) mg/dL Hemoglobin A1c 6.3 H (4.0-6.0) % HDL Cholesterol (40-60) mg/dL 10/14/19 Range/Units 06:49 PT (9.0-12.0) sec INR (<1.2) BUN (9-20) mg/dL Glucose (74-99) mg/dL Hemoglobin A1c (4.0-6.0) % HDL Cholesterol 36 L (40-60) mg/dL Thrombosis Risk Factor Assmnt - DVT/VTE Prophylaxis DVT/VTE Prophylaxis: Pharmacologic Prophylaxis ordered - Choose All That Apply Any of the Below Risk Factors Present?: Yes Each Factor Represents 1 point: Obesity (BMI >25) Other Risk Factors: Yes Each Risk Factor Represents 3 Points: Age 75 years or older Thrombosis Risk Factor Assessment Total Risk Factor Score: 4 Thrombosis Risk Factor Assessment Level: Moderate Risk Assessment and Plan Plan: 1. Vague symptoms of lightheadedness and fatigue, possibly related to orthostatic changes although orthostatics negative. Cardiac enzymes negative. Cardiology consult appreciated. Patient is scheduled for heart catheterization tomorrow with Dr. SUMAN Azul. Continue aspirin, atenolol, Lipitor, Nitrostat. 2. History of coronary artery disease. Continue aspirin, Lipitor. 3. Hypertension. Continue hydralazine 25 mg 3 times daily, atenolol 12.5 mg daily, lisinopril 20 mg twice daily. 4. Hyperlipidemia. Continue simvastatin 20 mg at bedtime. 5. Benign prostatic hypertrophy. Continue Flomax 0.4 mg daily. 6. DVT prophylaxis. SCDs and CLAUDIA hose. 7. GI prophylaxis. Pepcid. Patient was in the observation unit. Discharge plan: home Impression and plan of care have been directed as dictated by the signing physician. Mary Gross nurse practitioner acting as scribe for signing physician.
[2019-10-14] MEDS ORDERED: ALPRAZolam 0.5 MG TAB PO PRN (12:43)
[2019-10-14] MEDS ORDERED: ALPRAZolam 0.25 MG TAB PO PRN (12:43)
[2019-10-14] MEDS ORDERED: SODIUM CHLORIDE 0.9% 1,000 ML in EMPTY BAG 1 BAG IV ONE (12:43)
--- NOTE | 2019-10-14 13:17 | P.CRDCN ---
History of Present Illness History of present illness: HISTORY OF PRESENTING ILLNESS This is a pleasant 79-year-old male past medical history significant for coronary artery disease status post PCI of the diagonal branch, myocardial infarction, ischemic cardiomyopathy, hypertension and dyslipidemia. He presented with near syncope. He follows in the office with Dr. Azul. We have been asked to see him in consultation for chest pain and bradycardia. He is seen and examined resting comfortably in bed with his at the bedside. He states yesterday he was standing up in the kitchen using a scraper meat when he became acutely light headed, diaphoretic and nauseated. He felt as though he was going to pass out so he stumbled to a chair and sat down. He then started experiencing a pain in the epigastric region described as a tightness. He checked his blood pressure with his home machine and the reading was 60/40. EMS was called. The whole episode lasted approximately 10-15 minutes and subsided on its own before EMS arrived. On arrival blood pressure was 118/90 and all symptoms had subsided. He has had no further symptoms since arrival. DIAGNOSTICS EKG reveals sinus bradycardia heart rate 54, poor R-wave progression and T-wave inversion in the anterior-lateral leads. No change from previous. Chest xray negative for an acute cardiopulmonary process. Laboratory reviewed, CBC unremarkable, sodium 137, potassium 4.6, creatinine 0.88, magnesium 2.0, cardiac enzymes negative 3, LDL 52. Current cardiac medications include atenolol 12.5 mg daily, quinapril 20 mg twice a day, simvastatin 20 mg at bedtime and hydralazine 25 mg 3 times a day. Most recent cardiac catheterization performed August 2018 revealing anterior apical hypokinesia in the distal portion with ejection fraction 40-45%, right dominant system, 40% ostial disease involving the RCA with calcification from the aorta, no significant disease in the left system with a patent stent in the previously stented diagonal branch. Most recent carotid Doppler performed in the office February 2019 revealed less than 49% stenosis bilaterally. REVIEW OF SYSTEMS At the time of my exam: CONSTITUTIONAL: Denies fever or chills. CARDIOVASCULAR: Denies chest pain, shortness of breath, orthopnea, PND or palpitations. RESPIRATORY: Denies cough. GASTROINTESTINAL: Denies abdominal pain, diarrhea, constipation, nausea or vomiting. MUSCULOSKELETAL: Denies myalgias. NEUROLOGIC: Denies numbness, tingling or weakness. ENDOCRINE: Denies fatigue, weight change, polydipsia or polyurina. GENITOURINARY: Denies burning, hematuria or urgency with micturation. HEMATOLOGIC: Denies history of anemia or bleeding. PHYSICAL EXAMINATION Blood pressure 163/66 heart rate 61 afebrile and maintaining oxygen saturaiton on room air. CONSTITUTIONAL: No apparent distress. HEENT: Head is normocephalic. Pupils are equal, round. Sclerae anicteric. Mucous membranes of the mouth are moist. No JVD. No carotid bruit. CHEST EXAMINATION: Lungs are clear to auscultation. No chest wall tenderness is noted on palpation or with deep breathing. HEART EXAMINATION: Regular rate and rhythm. S1, S2 heard. No murmurs, gallops or rub. ABDOMEN: Soft, nontender. Positive bowel sounds. EXTREMITIES: 2+ peripheral pulses, no lower extremity edema and no calf tenderness. NEUROLOGIC EXAMINATION: Patient is awake, alert and oriented x3. ASSESSMENT Chest pain. An acute coronary event has been ruled out. Near syncope History of coronary artery disease in the setting of an acute myocardial infarction status post PCI of the diagonal branch 1997 Ischemic cardiomyopathy Hypertension Dyslipidemia PLAN An acute coronary event has been ruled out. Telemetry tracings unremarkable for an acute arrhythmia. Blood pressure stable. Obtain 2D echocardiogram and doppler study to assess cardiac structure and function. Symptoms could be related to a vasovagal episode with unknown precipitating factor. Suggest he undergo cardiac catheterization to assess for progression of underlying CAD. I have discussed the risks, benefits and alternative therapies for the above-mentioned procedure and for both sedation/analgesia as well as necessary blood product administration, if indicated, as they pertain to this patient. The patient has indicated understanding and acceptance of the risks and procedures discussed. Questions have been answered appropriately and he is agreeable to move forward with the above-stated procedure. Has been boarded tomorrow at 10:30 with his primary storage garage manager Dr. Azul. Will also consider outpatient event monitoring if all other testing is negative. Thank you kindly for this consultation. Nurse Practitioner note has been reviewed, I agree with a documented findings and plan of care. Patient was seen and examined. Past Medical History Past Medical History: Hearing Disorder / Deafness, Hypertension, Myocardial In farction (MS) Additional Past Medical History / Comment(s): HAD MS 09/01/98/ ANGIOPLASTY / BILAT HEARING AIDS. CTR BILAT.'08, right side flail chest. Last Myocardial Infarction Date:: 1997 History of Any Multi-Drug Resistant Organisms: None Reported Past Surgical History: Cholecystectomy, Heart Catheterization, Hernia Repair, Orthopedic Surgery Additional Past Surgical History / Comment(s): RIGHT KNEE ARTHROSCOPY 6 YRS AGO Past Anesthesia/Blood Transfusion Reactions: No Reported Reaction Past Psychological History: No Psychological Hx Reported Smoking Status: Never smoker Past Alcohol Use History: Rare Additional Past Alcohol Use History / Comment(s): Patient is a nonsmoker, no marijuana nor illicit drug use, no alcohol abuse. Patient is retired and lives at home with his . Past Drug Use History: None Reported - Past Family History Mother Family Medical History: No Reported History, Cancer Additional Family Medical History / Comment(s): at 55 from breast cancer. Father Family Medical History: Congestive Heart Failure (CHF), Diabetes Mellitus Additional Family Medical History / Comment(s): at 65 with CHF. Brother(s) Additional Family Medical History / Comment(s): Patient has 1 brother and 2 sisters with no major medical problems including heart disease. He has 3 children with no major medical problems. Medications and Allergies Home Medications Medication Instructions Recorded Confirmed Type Atenolol 12.5 mg PO DAILY 02/28/17 10/13/19 History Quinapril HCl [Accupril] 20 mg PO BID 02/28/17 10/13/19 History Simvastatin [Zocor] 20 mg PO HS 02/28/17 10/13/19 History Cholestyramine (with Sugar) 4 gm PO HS 09/03/18 10/13/19 History [Cholestyramine Packet] Tamsulosin [Flomax] 0.4 mg PO DAILY 09/03/18 10/13/19 History hydrALAZINE HCL [Apresoline] 25 mg PO TID 09/03/18 10/13/19 History Allergies Allergy/AdvReac Type Severity Reaction Status Date / Time almond Allergy LIPS SWELL Verified 10/13/19 14:44 peanut Allergy LIPS SWELL Verified 10/13/19 14:44 Physical Exam Vitals: Vital Signs Temp Pulse Pulse Pulse Pulse Resp BP 10/14/19 11:28 97.6 F 53 L 18 168/80 10/14/19 07:23 10/14/19 07:19 97.8 F 61 18 163/66 10/14/19 04:00 98.0 F 67 16 10/14/19 03:44 17 10/13/19 23:07 17 10/13/19 23:05 98.0 F 70 17 10/13/19 20:00 16 10/13/19 19:20 97.6 F 65 16 10/13/19 15:06 97.8 F 10/13/19 13:11 50 L 52 L 51 L BP BP BP Pulse Ox 10/14/19 11:28 94 L 10/14/19 07:23 94 L 10/14/19 07:19 94 L 10/14/19 04:00 120/74 98 10/14/19 03:44 10/13/19 23:07 10/13/19 23:05 149/68 96 10/13/19 20:00 10/13/19 19:20 162/71 98 10/13/19 15:06 149/71 97 10/13/19 13:11 139/73 145/70 127/67 Intake and Output 10/13/19 10/14/19 10/14/19 22:59 06:59 14:59 Intake Total 222 240 Balance 222 240 Intake: Oral 222 240 Other: Voiding Method Toilet # Voids 1 Results 10/13/19 12:00 10/13/19 12:00 Cardiac Enzymes 10/13/19 10/13/19 10/13/19 Range/Units 12:00 18:41 23:33 Troponin I <0.012 <0.012 <0.012 (0.000-0.034) ng/mL Coagulation 10/13/19 Range/Units 12:00 PT 12.2 H (9.0-12.0) sec APTT 25.7 (22.0-30.0) sec Lipids 10/14/19 Range/Units 06:49 Triglycerides 94 (<150) mg/dL Cholesterol 107 (<200) mg/dL HDL Cholesterol 36 L (40-60) mg/dL Current Medications Generic Name Dose Route Start Last Admin Trade Name Freq PRN Reason Stop Dose Admin Alprazolam 0.25 mg 10/14/19 12:43 Xanax PO Q6HR PRN Mild Anxiety Alprazolam 0.5 mg 10/14/19 12:43 Xanax PO Q6HR PRN Moderate Anxiety Aspirin 325 mg 10/14/19 09:00 10/14/19 12:33 Aspirin PO 325 mg DAILY PING Administration Atenolol 12.5 mg 10/14/19 09:00 10/14/19 12:33 Tenormin PO 12.5 mg DAILY PING Administration Atorvastatin Calcium 10 mg 10/13/19 21:00 10/13/19 19:50 Lipitor PO 10 mg HS PING Administration Cholestyramine Resin 4 gm 10/13/19 21:00 10/13/19 19:50 Questran PO 4 gm HS PING Administration Hydralazine HCl 25 mg 10/13/19 22:00 10/14/19 12:33 Apresoline PO 25 mg TID PING Administration Sodium Chloride 1,000 ml/ IV 1,000 mls @ 81.647 mls/hr 10/14/19 12:43 Solution IV 10/15/19 00:57 .[id number] ONE 1 ML/KG/HR Lisinopril 20 mg 10/13/19 21:00 10/14/19 12:33 Zestril PO 20 mg BID PING Administration Nitroglycerin 0.4 mg 10/13/19 14:11 Nitrostat SUBLINGUAL Q5M PRN Chest Pain Tamsulosin HCl 0.4 mg 10/14/19 09:00 10/14/19 12:33 Flomax PO 0.4 mg DAILY PING Administration Intake and Output 10/13/19 10/14/19 10/14/19 22:59 06:59 14:59 Intake Total 222 240 Balance 222 240 Intake: Oral 222 240 Other: Voiding Method Toilet # Voids 1 10/13/19 12:00 10/13/19 12:00
[2019-10-14] MEDS: ATORVASTATIN 10 MG TAB PO SCH (21:19)
[2019-10-14] MEDS: CHOLESTYRAMINE (WITH SUGAR) 4 GM PACKET PO SCH (21:19)
[2019-10-15] MEDS: hydrALAZINE HCL 25 MG TAB PO SCH ×3 (06:16→23:51)
[2019-10-15] MEDS: ASPIRIN 325 MG TAB PO SCH (06:16)
[2019-10-15] MEDS: ATENOLOL 12.5 MG TAB PO SCH (06:16)
[2019-10-15] MEDS: TAMSULOSIN 0.4 MG CAP.ER.24H PO SCH (06:16)
[2019-10-15] MEDS: LISINOPRIL 20 MG TAB PO SCH ×2 (06:17→20:01)
[2019-10-15] MEDS ORDERED: SODIUM CHLORIDE 0.9% 1,000 ML IV ONE (12:20)
[2019-10-15] MEDS ORDERED: HEPARIN SODIUM 1,000 UN/ML (10ML VL) ONE (12:31)
[2019-10-15] MEDS ORDERED: LIDOCAINE 1% INJ 10MG/ML (20 ML MDV) ONE (12:31)
[2019-10-15] MEDS ORDERED: VERAPAMIL 2.5 MG/ML 2 ML AMP ONE (12:31)
[2019-10-15] MEDS ORDERED: LIDOCAINE 1% INJ 10MG/ML (20 ML MDV) SQ ONE (12:39)
[2019-10-15] MEDS ORDERED: MIDAZOLAM 2 MG/2 ML VIAL IV ONE (12:39)
[2019-10-15] MEDS: VERAPAMIL SYRINGE (5 MG/10 ML) INTRAARTER ONE ×2 (12:40→12:54)
[2019-10-15] MEDS ORDERED: HEPARIN SODIUM 1,000 UN/ML (10ML VL) IV ONE (12:41)
[2019-10-15] MEDS ORDERED: IOPAMIDOL-370 100ML BTL INJ ONE (13:02)
[2019-10-15] MEDS ORDERED: SODIUM CHLORIDE 0.9% 1,000 ML IV SCH ×2 (13:30→19:30)
--- NOTE | 2019-10-15 13:48 | P.PN ---
Subjective Progress Note Date: 10/15/19 This is an 79-year-old male with past medical history of hypertension, [place] status post heart catheterization and angioplasty and 1998, hearing loss. Patient underwent an outpatient heart catheterization in August [address] SUMAN Azul which revealed 40% or less ostial disease involving the right coronary artery, left system has no significant disease. Previously stented diagonal branch is widely patent. Feeling pressures are normal. EF is 40-45% with anterior apical and inferior apical severe hypokinesia which is unchanged from before. No mitral regurgitation. Patient developed lightheadedness yesterday and had to sit down. His blood pressure was low. He was feeling tired. He d enied having any chest pain but had some discomfort in the epigastric area. He denies any nausea, vomiting, diarrhea. No fever or chills. He felt like he was eating and drinking normally yesterday. He denies any loss of consciousness. He last saw Dr. SUMAN Azul in July for regular checkup and no medication changes were made at that time. Patient's symptoms have resolved at the time of this evaluation. Patient's is concerned that these are the same symptoms that warranted him to have a heart catheterization last year. Patient came into [facility] emergency center for evaluation. He was afebrile, heart rate in the 50s, orthostatics were negative. Initial blood pressure 138/75, pulse ox 96% on room air. EKG was a sinus bradycardia with occasional PACs. Chest x-ray showed no acute abnormality. CBC was unremarkable. He went 22 and creatinine 0.88, blood sugar 161. Liver enzymes were normal, troponin negative. Patient was placed on the observation unit and cardiology consult requested. Subsequent troponins have been negative on 2 draws. Triglycerides 94, cholesterol 107, LDL 52, HDL 36. Echocardiogram reveals EF of 50-55%, moderate concentric left ventricular hypertrophy, mild aortic valve sclerosis, mild mitral regurgitation, mild tricuspid regurgitation, mild pulmonary hypertension. Heart rate has been running in the 50s and 60s, blood pressure 168/80. 10/15: Patient denies any chest pain, heart rate has been running in the 50s, afebrile, blood pressure 169/74, pulse ox 95% on room air. Patient underwent a heart catheterization today that did not show any progression of coronary artery disease. Plan is for monitoring overnight, even monitor tomorrow to be picked up in the skatesman's office and discharged home. Review of Systems Constitutional: Denies weakness, Denies anorexia, Denies chills, Denies fatigue, Denies fever, Denies poor appetite Eyes: denies blurred vision, denies pain Ears, nose, mouth and throat: Reports vertigo Cardiovascular: Denies lightheadedness, Denies chest pain, Denies decreased exercise tolerance, Denies dyspnea on exertion, Denies edema, Denies shortness of breath, Denies syncope Respiratory: Denies cough, Denies cough with sputum, Denies excessive sputum, Denies hemoptysis, Denies home oxygen, Denies respiratory infections, Denies wheezing Gastrointestinal: Denies abdominal pain, Denies diarrhea, Denies loss of appetite, Denies nausea, Denies vomiting Genitourinary: Denies dysuria, Denies urinary frequency, Denies urinary retention Musculoskeletal: Denies gait dysfunction, Denies muscle weakness, Denies myalgias Integumentary: Denies pruritus, Denies rash, Denies wounds Neurological: Denies change in mentation, Denies change in speech, Denies numbness, Denies weakness Psychiatric: Denies anxiety, Denies depression Endocrine: Denies fatigue, Denies weight change Objective - Vital Signs Vital signs: Vital Signs Temp 97.2 F L 10/15/19 13:20 Pulse 53 L 10/15/19 13:20 Resp 17 10/15/19 13:20 BP 169/74 10/15/19 13:20 Pulse Ox 95 10/15/19 13:20 Intake & Output 10/14/19 10/15/19 10/15/19 18:59 06:59 18:59 Intake Total 980 200 Balance 980 200 Intake: IV 200 Oral 480 Other 500 Other: Voiding Method Toilet Toilet Toilet # Voids 1 - Exam Gen: This is an 79-year-old male. He is sitting up in bed and appears to be comfortable and in no acute distress. Patient's family members are at the bedside. HEENT: Head is atraumatic, normocephalic. Pupils equal, round. Sclerae is anicteric. NECK: Supple. No JVD. No lymphadenopathy. No thyromegaly. LUNGS: Clear to auscultation. No wheezes or rhonchi. No intercostal retractions. HEART: Regular rate and rhythm. No murmur. ABDOMEN: Soft. Bowel sounds are present. No masses. No tenderness. EXTREMITIES: No pedal edema. No calf tenderness. Dorsalis pedis +2 bilaterally. NEUROLOGICAL: Patient is awake, alert and oriented x3. Cranial nerves 2 through 12 are grossly intact. - Labs CBC & Chem 7: 10/13/19 12:00 10/13/19 12:00 Assessment and Plan Plan: 1. Vague symptoms of lightheadedness and fatigue, possibly related to orthostatic changes although orthostatics negative. Symptoms possibly related to arrhythmia. Heart catheterization as above. Patient to pickling operator event monitor at cardiology office. Monitor overnight. Cardiac enzymes negative. Cardiology consult appreciated. Continue aspirin, atenolol, Lipitor, Nitrostat. 2. History of coronary artery disease. Continue aspirin, Lipitor. 3. Hypertension. Continue hydralazine 25 mg 3 times daily, atenolol 12.5 mg daily, lisinopril 20 mg twice daily. 4. Hyperlipidemia. Continue simvastatin 20 mg at bedtime. 5. Benign prostatic hypertrophy. Continue Flomax 0.4 mg daily. 6. DVT prophylaxis. SCDs and CLAUDIA hose. 7. GI prophylaxis. Pepcid. Discharge plan: home on Impression and plan of care have been directed as dictated by the signing physician. Mary Gross nurse practitioner acting as scribe for signing physician.
--- NOTE | 2019-10-15 14:18 | CC ---
CARDIAC CATHETERIZATION REPORT DATE OF SERVICE: 10/15/2019 PROCEDURE: Left heart catheterization and coronary angiography. PERFORMED BY: Dr. César Azul. Moderate conscious sedation time was 20 minutes. Patient was administered Versed. Oxygen saturation, hemodynamics and EKG were monitored closely. CLINICAL INFORMATION: Galo Brown is an 79-year-old gentleman with a known history of CAD. In 1997, I performed stenting of a major diagonal branch with a bare metal stent. At that time, he had a non-ST elevation PA and there was no lesion in the LAD. However, he has anteroapical hypokinesia, ejection fraction in the range of 40% to 45%. He was advised medical therapy and has done well. About a year ago in August 2018, I performed a cardiac cath which revealed that the stented segment diagonal was patent. RCA was dominant disease-free with some ostial disease which is not critical. Circumflex was free of significant disease as was LAD. However, he came to the hospital this time with episode of pressure in the epigastric and lower chest area associated with a vasovagal feeling with low heart rate and blood pressure and this occurred while he was making some hamburgers, not doing much strenuous activity. Because of his chest discomfort, known CAD, he was advised coronary angiography. Telemetry monitoring did not reveal any tachy or bradyarrhythmia. The risks, benefits, options were explained to the patient and and procedure was advised to be performed today. PROCEDURE NOTE: Under local anesthesia and strict aseptic precautions, a 6-Chadian introducer was placed in the right radial artery. Using a JR4 and JL3.5 catheters I performed coronary angiography and the same right catheter was used to check LV pressures. LV gram was not performed. The sheath was taken out and a TR band applied as per protocol. The patient tolerated the procedure well. There were no complications. CARDIAC CATHETERIZATION FINDINGS: The left ventricular end-diastolic pressure is about 9 mmHg without any gradient across the aortic valve. CORONARY ANGIOGRAPHY FINDINGS: 1. RIGHT CORONARY ARTERY: Large dominant disease-free vessel. There is calcification in the proximal portion, specifically actually in the aortic wall where the right coronary comes off, but there is no significant stenosis. There is probably no more than 30% ostial lesion with good flow distally. The vessel is of good caliber. Bifurcates into PDA and PLV, both of which are free of significant disease. RCA is therefore dominant disease-free with ostial and aortic calcification at the origin of RCA. No more than 30% lesion. 2. LEFT MAIN CORONARY ARTERY: Short patent disease-free vessel that bifurcates into LAD and circumflex. 3. LEFT ANTERIOR DESCENDING CORONARY ARTERY: Good caliber vessel extends along the anterior wall, gives off septal and diagonal branches. The diagonal branch that was stented is widely patent. Beyond the stented segment, there is about a 35% narrowing. No significant disease in the entire LAD and it runs all the way to the apex, curves over the apex to supply the inferoapical portion of left ventricle. 4. LEFT POSTERIOR CIRCUMFLEX CORONARY ARTERY: Nondominant vessel, free of significant disease. It gives off a good-sized obtuse marginal. No significant disease. 5. LEFT VENTRICULOGRAM: This was not performed. FINAL IMPRESSION: This patient does not have any progression of coronary artery disease. The previously stented diagonal with a bare metal stent is widely patent. LAD and circumflex are free of significant disease. Ostial RCA has no more than 30% narrowing. Filling pressures are normal and no gradient across the aortic valve. RECOMMENDATION: I am recommending continued medical therapy with an event monitor for 30 days, office visit in one week. Discussed my thoughts in detail with the patient and family. I expect he will be discharged tomorrow and he will follow up with me in a week and his primary care physician, Dr. Phelps also in 1-2 weeks. MMBOZENAL / RAIZA: [id number] /
[2019-10-15] MEDS: ATORVASTATIN 10 MG TAB PO SCH (20:01)
[2019-10-15] MEDS: CHOLESTYRAMINE (WITH SUGAR) 4 GM PACKET PO SCH (20:01)
[2019-10-16 04:44] VITALS: RESP 18
[2019-10-16 07:58] VITALS: BP 145/71; PULSE 55; TEMP 97.5
[2019-10-16] MEDS: LISINOPRIL 20 MG TAB PO SCH (08:19)
[2019-10-16] MEDS: hydrALAZINE HCL 25 MG TAB PO SCH (08:19)
[2019-10-16] MEDS: TAMSULOSIN 0.4 MG CAP.ER.24H PO SCH (08:20)
[2019-10-16] MEDS ORDERED: ASPIRIN 81 MG PO SCH (09:00)
--- NOTE | 2019-10-16 11:39 | P.PN ---
Subjective HISTORY OF PRESENTING ILLNESS This is a pleasant 79-year-old male past medical history significant for coronary artery disease status post PCI of the diagonal branch, myocardial infarction, ischemic cardiomyopathy, hypertension and dyslipidemia. He presented with near syncope. He follows in the office with Dr. Azul. He underwent cardiac catheterization yesterday revealing no progression of underlying disease. Previously stented diagonal branch widely patent, Ostial RCA with 30 % narrowing. Blood pressure today 145/71 heart rate 55 afebrile and maintaining oxygen saturation on room air. He is seen and examined laying flat in bed in no acute distress. He denies chest pain, dizziness, shortness of breath or palpitations. Telemetry tracings unremarkable. PHYSICAL EXAMINATION CONSTITUTIONAL: No apparent distress. HEENT: Head is normocephalic. Pupils are equal, round. Sclerae anicteric. Mucous membranes of the mouth are moist. No JVD. No carotid bruit. CHEST EXAMINATION: Lungs are clear to auscultation. No chest wall tenderness is noted on palpation or with deep breathing. HEART EXAMINATION: Regular rate and rhythm. S1, S2 heard. No murmurs, gallops or rub. EXTREMITIES: 2+ peripheral pulses, no lower extremity edema and no calf tenderness. Right radial access site clean, dry and intact with strong pulses. ASSESSMENT Chest pain. An acute coronary event has been ruled out. No progression of underlying CAD and patent stent Near syncope, resolved. Likely vasovagal reaction with unknown precipitating factor. History of coronary artery disease in the setting of an acute myocardial infarction status post PCI of the diagonal branch 1997 Ischemic cardiomyopathy Hypertension Dyslipidemia PLAN Discontinue atenolol. Apply 30-day event monitor prior to discharge. Follow up in the office with Dr. Azul in 1 week. Event was likely a vasovagal episode with unknown precipitating factor. Nurse Practitioner note has been reviewed, I agree with a documented findings and plan of care. Patient was seen and examined. Objective - Vital Signs Vital signs: Vital Signs Temp 97.5 F L 10/16/19 07:56 Pulse 55 L 10/16/19 07:56 Resp 18 10/16/19 09:00 BP 145/71 10/16/19 07:56 Pulse Ox 95 10/16/19 07:56 Intake & Output 10/15/19 10/16/19 10/16/19 18:59 06:59 18:59 Intake Total 200 Balance 200 Intake: IV 200 Other: Voiding Method Toilet Toilet Toilet # Voids 1 - Labs CBC & Chem 7: 10/13/19 12:00 10/13/19 12:00
--- NOTE | 2019-10-28 12:56 | P.DS ---
Providers Date of admission: 10/15/19 14:37 Attending physician: Segundo Phelps Consults: 10/13/19 14:11 Consult Physician Urgent Consulting Provider: [facility] Consult Reason/Comments: Chest pain, bradycardia Do you want consulting provider notified?: Yes Primary care physician: [facility] Course: This is an 79-year-old male with past medical history of hypertension, GA status post heart catheterization and angioplasty and 1998, hearing loss. Patient underwent an outpatient heart catheterization in August [address] SUMAN Azul which revealed 40% or less ostial disease involving the right coronary artery, left system has no significant disease. Previously stented diagonal branch is widely patent. Feeling pressures are normal. EF is 40-45% with anterior apical and inferior apical severe hypokinesia which is unchanged from before. No mitral regurgitation. Patient developed lightheadedness yesterday and had to sit down. His blood pressure was low. He was feeling tired. He denied having any chest pain but had some discomfort in the epigastric area. He denies any nausea, vomiting, diarrhea. No fever or chills. He felt like he was eating and drinking normally yesterday. He denies any loss of consciousness. He last saw Dr. SUMAN Azul in July for regular checkup and no medication changes were made at that time. Patient's symptoms have resolved at the time of this evaluation. Patient's is concerned that these are the same symptoms that warranted him to have a heart catheterization last year. Patient came into [facility] emergency center for evaluation. He was afebrile, heart rate in the 50s, orthostatics were negative. Initial blood pressure 138/75, pulse ox 96% on room air. EKG was a sinus bradycardia with occasional PACs. Chest x-ray showed no acute abnormality. CBC was unremarkable. He went 22 and creatinine 0.88, blood sugar 161. Liver enzymes were normal, troponin negative. Patient was placed on the observation unit and cardiology consult requested. Subsequent troponins have been negative on 2 draws. Triglycerides 94, cholesterol 107, LDL 52, HDL 36. Echocardiogram reveals EF of 50-55%, moderate concentric left ventricular hypertrophy, mild aortic valve sclerosis, mild mitral regurgitation, mild tricuspid regurgitation, mild pulmonary hypertension. Heart rate has been running in the 50s and 60s, blood pressure 168/80. 10/15: Patient denies any chest pain, heart rate has been running in the 50s, afebrile, blood pressure 169/74, pulse ox 95% on room air. Patient underwent a heart catheterization today that did not show any progression of coronary artery disease. Plan is for monitoring overnight, even monitor tomorrow to be picked up in the user experience developer's office and discharged home. - Exam Gen: This is an 79-year-old male. He is sitting up in bed and appears to be comfortable and in no acute distress. Patient's family members are at the bedside. HEENT: Head is atraumatic, normocephalic. Pupils equal, round. Sclerae is anicteric. NECK: Supple. No JVD. No lymphadenopathy. No thyromegaly. LUNGS: Clear to auscultation. No wheezes or rhonchi. No intercostal retractions. HEART: Regular rate and rhythm. No murmur. ABDOMEN: Soft. Bowel sounds are present. No masses. No tenderness. EXTREMITIES: No pedal edema. No calf tenderness. Dorsalis pedis +2 bilaterally. NEUROLOGICAL: Patient is awake, alert and oriented x3. Cranial nerves 2 through 12 are grossly intact. Assessment and Plan Plan: 1. Vague symptoms of lightheadedness and fatigue, possibly related to orthostatic changes although orthostatics negative. Symptoms possibly related to arrhythmia. Heart catheterization as above. Patient to fiber picker event monitor at cardiology office. Monitor overnight. Cardiac enzymes negative. Cardiology consult appreciated. Continue aspirin, atenolol, Lipitor, Nitrostat. 2. History of coronary artery disease. Continue aspirin, Lipitor. 3. Hypertension. Continue hydralazine 25 mg 3 times daily, atenolol 12.5 mg daily, lisinopril 20 mg twice daily. 4. Hyperlipidemia. Continue simvastatin 20 mg at bedtime. 5. Benign prostatic hypertrophy. Continue Flomax 0.4 mg daily. Pt went for heart cath was negative and had Loop recorder monitor placement and was ready to be discharged home. Patient Condition at Discharge: Good Plan - Discharge Summary New Discharge Prescriptions: New Aspirin 81 mg PO DAILY chew Continue Simvastatin [Zocor] 20 mg PO HS Quinapril HCl [Accupril] 20 mg PO BID hydrALAZINE HCL [Apresoline] 25 mg PO TID Tamsulosin [Flomax] 0.4 mg PO DAILY Cholestyramine (with Sugar) [Cholestyramine Packet] 4 gm PO HS Discontinued Atenolol 12.5 mg PO DAILY Discharge Medication List Quinapril HCl [Accupril] 20 mg PO BID 02/28/17 [History] Simvastatin [Zocor] 20 mg PO HS 02/28/17 [History] Cholestyramine (with Sugar) [Cholestyramine Packet] 4 gm PO HS 09/03/18 [History] Tamsulosin [Flomax] 0.4 mg PO DAILY 09/03/18 [History] hydrALAZINE HCL [Apresoline] 25 mg PO TID 09/03/18 [History] Aspirin 81 mg PO DAILY chew 10/16/19 [Rx] Follow up Appointment(s)/Referral(s): Vangie Azul MD [STAFF PHYSICIAN] - 10/22/19 9:00 am (Follow up in the office for a Site Check with Dr. SUMAN Azul as scheduled) Segundo Phelps MD [Primary Care Provider] - 1-2 days Patient Instructions/Handouts: *[facility]gery [facility] - After Heart Catheterization - Manager Planning Instructions Activity/Diet/Wound Care/Special Instructions: See Activity Restriction Instructions Discharge Disposition: HOME SELF-CARE
--- NOTE | 2019-11-24 13:01 | EM ---
EVENT MONITOR 30 DAY EVENT MONITOR: Patient's underlying rhythm is normal sinus rhythm with normal CO interval and QRS duration and normal ST-T waves. The average heart rate during the whole recording was varying between 70 to 80 beats per minute. On several occasions is short runs of paroxysmal atrial tachycardia were noted at rate of 120-130 beats per minute without associated or any symptoms. On several occasions, nonsustained ventricular tachycardia consisting of 5-17 beats were noted without associated with any symptoms. On a few occasions accelerated idioventricular rhythm at a rate of 60 to 70 beats per minute was noted. No symptoms were recorded by the patient. MMODL / IJN: [id number] /
== END 2019-10-16 11:46 | disposition home or self-care (01) ==
LOC: EC 11:54 → 1SOBS 14:11 → UNDOADMOB 14:17 → 1SOBS 14:17 → OBSVTOIN 10-15 14:37 → INTOOBSV 10-15 14:37 → UNDODISIN 10-16 11:46
PROVIDERS: ADMIT Internal Medicine Geriatric Medicine; ATTEND Internal Medicine Geriatric Medicine
DX: R42 Dizziness and giddiness (principal); R07.9 Chest pain, unspecified; R53.83 Other fatigue; R00.1 Bradycardia, unspecified; E78.5 Hyperlipidemia, unspecified; H91.90 Unspecified hearing loss, unspecified ear; I10 Essential (primary) hypertension; I25.10 Atherosclerotic heart disease of native coronary artery without angina pectoris; I25.2 Old myocardial infarction; I25.5 Ischemic cardiomyopathy; I27.20 Pulmonary hypertension, unspecified; I70.0 Atherosclerosis of aorta; N40.0 Benign prostatic hyperplasia without lower urinary tract symptoms; Z79.899 Other long term (current) drug therapy; Z80.3 Family history of malignant neoplasm of breast; Z82.49 Family history of ischemic heart disease and other diseases of the circulatory system; Z83.3 Family history of diabetes mellitus; Z87.891 Personal history of nicotine dependence; Z97.4 Presence of external hearing-aid; Z98.61 Coronary angioplasty status; Z90.49 Acquired absence of other specified parts of digestive tract; Z91.018 Allergy to other foods; Z91.010 Allergy to peanuts; Z79.82 Long term (current) use of aspirin
CPT/HCPCS: 93005 ×2; 96360; 99285; 36415; 94760; 93306; 93270; 93458; 85379; 80061; 80053; 83735; 84484; 85025; 85610; 85730; 83036; 71046; G0378 ×4; C1769; C1894; J2250; J2001; J1644; Q9967

== ENCOUNTER 2019-11-18 08:55 | Day surgery (SDC) | payer MEDICARE ==
[2019-11-17 12:28] VITALS: BMI 26.5
[~2019-11-18 08:55] MED LIST changes: -ALPRAZolam 0.25 MG TAB PO PRN; -ALPRAZolam 0.5 MG TAB PO PRN; -ASPIRIN 325 MG TAB PO ONE; -ATORVASTATIN 80 MG TAB PO ONE; -NITROGLYCERIN SL TABS 0.4 MG TAB SUBLINGUAL PRN; -SODIUM CHLORIDE 0.9% 1,000 ML in EMPTY BAG 1 BAG IV ONE; +ceFAZolin 1,000 MG in SODIUM CHLORIDE 0.9% IRRIGATIO 250 ML IRRIGATION ONE
[2019-11-18 09:45] LABS: Basophils # (A) 0.2 k/uL (0-0.2); Basophils % (A) 3 %; Eosinophils # (A) 0.2 k/uL (0-0.7); Eosinophils % (A) 4 %; HCT 49.7 % (39.0-53.0); HGB 16.1 gm/dL (13.0-17.5); Lymphocytes # (A) 1.4 k/uL (1.0-4.8); Lymphocytes % (A) 24 %; MCH 29.4 pg (25.0-35.0); MCHC 32.5 g/dL (31.0-37.0); MCV 90.6 fL (80.0-100.0); Mean Platelet Volume 7.9; Monocytes # (A) 0.5 k/uL (0-1.0); Monocytes % (A) 8 %; Neutrophils # (A) 3.4 k/uL (1.3-7.7); Neutrophils % (A) 58 %; Platelet Count 186 k/uL (150-450); RBC 5.48 m/uL (4.30-5.90); RDW 12.9 % (11.5-15.5); WBC 5.9 k/uL (3.8-10.6)
[2019-11-18] MEDS ORDERED: SODIUM CHLORIDE 0.9% 1,000 ML IV ONE (10:04)
[2019-11-18 10:06] LABS: African American GFR (CKD) >90 (>60 ml/min/1.73 sqM); Anion Gap 9 mmol/L; Blood Urea Nitrogen 15 mg/dL (9-20); Calcium 9.5 mg/dL (8.4-10.2); Carbon Dioxide 25 mmol/L (22-30); Chloride 105 mmol/L (98-107); Glucose 117 mg/dL (74-99); Non-African American GFR(CKD) 88 (>60 ml/min/1.73 sqM); Sodium 139 mmol/L (137-145)
[2019-11-18 10:21] LABS: Potassium 4.6 mmol/L (3.5-5.1)
[2019-11-18] MEDS ORDERED: PROPOFOL 10 MG/ML 20 ML VIAL IV ONE (10:58)
[2019-11-18] MEDS ORDERED: fentaNYL (PF) 50 MCG/ML 2 ML AMP ONE (10:58)
[2019-11-18] MEDS ORDERED: MIDAZOLAM 2 MG/2 ML VIAL ONE (10:58)
[2019-11-18] MEDS ORDERED: LIDOCAINE 1% INJ 10MG/ML (20 ML MDV) ONE (11:28)
[2019-11-18] MEDS ORDERED: LIDOCAINE 1% INJ 10MG/ML (20 ML MDV) SQ ONE ×2 (11:37→13:14)
[2019-11-18] MEDS ORDERED: ceFAZolin 1,000 MG VIAL IV ONE (12:04)
[2019-11-18] MEDS ORDERED: ACETAMINOPHEN TAB 325 MG TAB PO PRN (12:37)
[2019-11-18] MEDS ORDERED: HYDROcodone/APAP 5-325MG 1 EACH TAB PO PRN (12:37)
--- NOTE | 2019-11-18 12:37 | P.PCN ---
Preoperative Diagnosis: Indication:Patient is an 79-year-old male with a past medical history of coronary coronary artery disease status post stenting to the [facility] for an non-ST elevation OR in 1997, ischemic cardiomyopathy with EF 40-45%, anterior lateral wall motion abnormality on recent echo He has sick sinus syndrome necessitating discontinuation of his beta blockers He had an episode of loss of consciousness, subsequent event monitor showed long runs of nonsustained ventricular tachycardia lasting for 17 beats This study was advised prior to decision regarding device therapy Details The patient was brought to the EP lab in a fasting state, written and informed consent was obtained prior to the procedure, he was prepped and draped as per protocol, IV antibiotics were administered, 1% lidocaine was used for local anesthesia, 3 venous sheaths were placed in the right femoral vein and via these 3 diagnostic catheters were placed, high right atrium, His bundle and right ventricle Baseline measurements Sinus cycle length 1154, DC interval 164 ms, QRS 103, QT 414, AH interval 90 ms, HV 33 ms Sinus node recovery times at 600, 504 100 were 1076, 19055, 997 respectively, no delta waves noted, no evidence for slow pathways Evidence for sinus node entry block consistent with his history of sick sinus syndrome AV node wenckebach block at 380 ms Ventricular extra stimulation in the RVOT per protocol Ventricular tachycardia was induced at 400/240/200 Right bundle branch block morphology, upright in inferior leads, negative in lateral leads, cycle length 221 ms, antitachycardia pacing failed terminate the tachycardia External defibrillation started sinus rhythm Final impression #1 abnormal sinus node function #2 normal AV node function #3 no delta waves or slow pathways #4 easily inducible monomorphic VT, 82 mmHg blood pressure reading during VT Plan Dual-chamber ICD for secondary prevention of sudden cardiac
[2019-11-18] MEDS ORDERED: IOPAMIDOL-370 50ML BTL INJ ONE (13:08)
[2019-11-18] MEDS ORDERED: ACETAMINOPHEN IV (For NPO) 1,000 MG in EMPTY BAG 1 BAG IVPB ONE (14:00)
[2019-11-18] MEDS ORDERED: LACTATED RINGERS 1,000 ML IV ONE (14:07)
[2019-11-18] MEDS: SODIUM CHLORIDE 0.9% 1,000 ML IV SCH ×2 (14:56→23:27)
[2019-11-18 19:46] VITALS: RESP 18
[2019-11-18] MEDS ORDERED: ATORVASTATIN 10 MG TAB PO SCH (21:00)
[2019-11-18] MEDS ORDERED: TAMSULOSIN 0.4 MG CAP.ER.24H PO SCH (21:00)
[2019-11-18] MEDS: LISINOPRIL 20 MG TAB PO SCH (21:54)
--- NOTE | 2019-11-19 00:44 | PCN ---
PROCEDURE NOTE DIAGNOSES: An is easily inducible ventricular tachycardia, ischemic cardiomyopathy, sick sinus syndrome. PROCEDURE PERFORMED: Dual-chamber ICD implant. The patient was brought to the EP lab in a fasting state. Written informed consent was obtained prior to the procedure. IV antibiotics were administered perioperatively. The left pectoral area was prepped and draped per protocol. 1% lidocaine was used for local anesthesia. A 4 cm incision was made parallel to the deltopectoral groove, about 0.5 cm medial to it and then carried down to the level of the pectoralis muscle. A subfascial pocket was made. Hemostasis was assured. The left axillary vein was accessed and 2 venous sheaths were placed in the left subclavian vein. ICD lead was placed in the right heart and the right atrial lead was placed. The right atrial lead was positioned in the right atrium in the right atrial appendage and screwed in and the ICD lead was positioned in the right ventricle, RV apex and screwed in. The lead was tested and secured to the underlying pectoralis muscle and connected to the defibrillator. The defibrillator and the leads were placed in the subfascial pocket and the wound was closed in 3 layers and dressed per protocol. The device is a [employer] ellipse model number DR 2411-36Q, serial #[id number]. The atrial lead is a [employer] tendril STS, 2088TC, 52 cm, serial number [id number]. An ICD lead is a [employer] Optisure JCY195H-53 cm, serial #[id number]. Atrial pacing threshold is 0.75 V at 0.5 milliseconds. P waves are 2.5 mV and impedance is 538 ohms. 10 V test was negative. The RV lead pacing threshold is 0.5 V at 0.5 millisecond sense as far as R-waves are greater than 12 mV and a pacing impedance is 580 ohms, high-voltage impedance is 73 ohms. RV . The device is programmed to DDDR 50-120 made at [facility] programming for tachy therapies with appropriate antitachycardia pacing cardioversion and defibrillation x2. PROCEDURE #2: Defibrillation level testing. Ventricular fibrillation was induced and appropriately detected at least sensitivity and successfully internally defibrillated. Successful shock at 10 joules. The charge time was 1.9 seconds and the shocking impedance was 73 ohms. There was no pause post shock noise or drop outs. The device was then programmed according to the mated RIT parameters. PROCEDURE #3: Left upper extremity venogram. 15 mL of IV dye was injected into the left arm and cine fluoroscopy was performed. The left axillary, subclavian and innominate veins were found to be patent. The patient is the patient tolerated the procedure well without any acute complication. PLAN: Continue cardiac medications, stop hydralazine and start metoprolol 50 mg daily. MMODL / IJN: [id number] /
--- NOTE | 2019-11-19 08:13 | P.DS ---
Providers Attending physician: Javy Gonzalez Primary care physician: [facility] Course: Patient is resting comfortably in bed. He has no symptoms of chest discomfort dizziness lightheadedness or palpitations He has no problems with his groin either minimal discomfort in the ICD site Minimal soakage no hematoma On examination blood pressure 152/64 mmHg afebrile 97.5F Normal heart sounds normal S1 normal S2 Breath sounds are clear no rhonchi no crackles Extremities warm no edema Impression Mild ischemic cardiomyopathy ejection fraction 40% with a long run of nonsustained ventricular tachycardia Sick Sinus Syndrome necessitating discontinuation of beta blockers temporarily Patient needs beta blockers on account of his cardiomyopathy and coronary artery disease Yesterday he underwent a diagnostic EP study which revealed 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 Azul and the device clinic within a week Plan - Discharge Summary Discharge Rx Participant: No New Discharge Prescriptions: New Metoprolol Succinate (ER) [Toprol Xl] 100 mg PO DAILY #90 tab Discontinued hydrALAZINE HCL [Apresoline] 25 mg PO TID No Action Simvastatin [Zocor] 20 mg PO HS Quinapril HCl [Accupril] 20 mg PO BID Tamsulosin [Flomax] 0.4 mg PO HS Cholestyramine (with Sugar) [Cholestyramine Packet] 4 gm PO HS Aspirin 81 mg PO DAILY chew Multivitamin/Iron/Folic Acid [Centrum Adults Tablet] 1 each PO DAILY Calcium (Unknown Dose) 1 dose PO DAILY Discharge Medication List Quinapril HCl [Accupril] 20 mg PO BID 02/28/17 [History] Simvastatin [Zocor] 20 mg PO HS 02/28/17 [History] Cholestyramine (with Sugar) [Cholestyramine Packet] 4 gm PO HS 09/03/18 [History] Tamsulosin [Flomax] 0.4 mg PO HS 09/03/18 [History] Aspirin 81 mg PO DAILY chew 10/16/19 [Rx] Calcium (Unknown Dose) 1 dose PO DAILY 11/17/19 [History] Multivitamin/Iron/Folic Acid [Centrum Adults Tablet] 1 each PO DAILY 11/17/19 [History] Metoprolol Succinate (ER) [Toprol Xl] 100 mg PO DAILY #90 tab 11/19/19 [Rx] Follow up Appointment(s)/Referral(s): Vangie Azul MD [STAFF PHYSICIAN] - 1 Week (Follow-up in the device clinic in 5 days Follow-up with Dr. Azul/Lisa in one to 2 weeks) Activity/Diet/Wound Care/Special Instructions: PATIENT EDUCATION MATERIAL Instructions following a heart rhythm device implant. 1. Keep dressing DRY for 5 DAYS. You may cover the area with Saran or Cling Wrap, prior to a shower. 2. The dressing will be removed in the Device Clinic at [facility]. Absorbable sutures were used to close the wound. 3. Avoid raising the left arm above the shoulder level. 4 week restriction 4. Avoid arm movements, like backscratching, rubbing the head, or pulling on a cord. 4 weeks restriction 5. Gentle range of motion movements of the shoulder, closest to the incision should be performed to avoid a frozen shoulder. (Pendulum exercises of the shoulder) 6. The opposite arm may be used freely. 7. Avoid driving for 7 days. 8. Avoid activities such as golfing, swimming, weed whacking, lifting more than 10 pounds weight, bowling, gymnastics and weight training/lifting. (6 weeks restriction) 9. Activities such as wood chopping with an axe, pull-ups in the gymnasium, power lifting, arc-welding, being close to home induction cooktops will always be a problem. 10. Arm sling is only a reminder not to raise the arm above the head. You do not need to keep the arm completely immobilized. Your free to move the arm and use it and for normal activities. In case of any problems, please call [facility], [place], @ [phone], Attention: Device Clinic Device clinic follow-up in 5 days Follow-up with primary lumber grader in 2-3 months Post EP study - Ablation instructions 1. Keep access sites dry for 2 days. 2. No heavy lifting or straining for 2 days. 3. Avoid bending the hips repeatedly for 2 days. 4. You may go up and down stairs slowly Call if the following is noted 1. Bleeding, increasing swelling or pain at the access sites. 2. Increasing chest discomfort, especially upon taking a deep breath. 3. Increasing shortness of breath, at rest or with exertion. 4. Undue cough / phlegm 5. Difficulty or pain while swallowing. 6. Pain or change in color in the extremities. 7. Fever, chills, rigors. 8. Increasing headache or neurologic symptoms. 9. Dizziness, fainting, palpitations Hold hydralazine temporarily and start metoprolol succinate 100 mg daily, continue all other medications as previously prescribed Discharge Disposition: HOME SELF-CARE
[2019-11-19] MEDS: LISINOPRIL 20 MG TAB PO SCH (08:37)
[2019-11-19] MEDS ORDERED: ASPIRIN 81 MG PO SCH (09:00)
[2019-11-19] MEDS ORDERED: METOPROLOL SUCCINATE (ER) 50 MG TAB.ER.24H PO SCH (09:00)
--- NOTE | 2019-11-19 09:14 | XR ---
EXAMINATION TYPE: XR chest 2V DATE OF EXAM: 11/19/2019 COMPARISON: 10/13/2019 TECHNIQUE: PA and lateral views submitted. HISTORY: Lead placement check FINDINGS: Double lead cardiac device is seen with no sizable pneumothorax. 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 Basilar consolidation pleural effusion or thickening stable. Remainder the lungs are clear. Cardiomediastinal silhouette is within normal limits. Osseous structures are grossly intact with gen eralized demineralization. IMPRESSION: 1. Pacemaker placement with no sizable pneumothorax. 2. Chronic pleural-parenchymal changes are stable. Correlate for underlying COPD.
[2019-11-19 11:26] VITALS: BP 159/81; PULSE 59; TEMP 98.4
== END 2019-11-19 14:47 | disposition home or self-care (01) ==
LOC: CATHEP 08:55 → 1SOBS 14:21 → CATHEP 11-19 14:47
PROVIDERS: ATTEND Internal Medicine Clinical Cardiac Electrophysiology
DX: I49.5 Sick sinus syndrome (principal); I47.1 Supraventricular tachycardia; I25.5 Ischemic cardiomyopathy; I45.10 Unspecified right bundle-branch block; I25.2 Old myocardial infarction; Z95.5 Presence of coronary angioplasty implant and graft; I25.10 Atherosclerotic heart disease of native coronary artery without angina pectoris; R55 Syncope and collapse; I10 Essential (primary) hypertension; E78.5 Hyperlipidemia, unspecified; Z72.0 Tobacco use; Z79.82 Long term (current) use of aspirin; Z79.899 Other long term (current) drug therapy
CPT/HCPCS: 93641; 93620; 33249; 80048; 85025; 71046; C1894; C1769 ×3; C1730 ×2; C1898; C1721; C1777; J0690 ×2; J2001; Q9967

== ENCOUNTER 2021-01-04 12:24 | Emergency (ER) | payer MEDICARE ==
[2021-01-04 12:42] VITALS: BP 182/77; PULSE 59; RESP 16; TEMP 98.2
[2021-01-04] MEDS ORDERED: DIPH,PERTUS(ACELL)TETVAC-LF 0.5 ML VIAL IM ONE (12:50)
[2021-01-04] MEDS ORDERED: ceFAZolin 1,000 MG VIAL (IM USE) IM STA (12:50)
[2021-01-04] MEDS ORDERED: LIDOCAINE 1% INJ 10MG/ML (20 ML MDV) SQ ONE (13:18)
[2021-01-04] MEDS ORDERED: GELATIN SPONGE,ABSORB (LARGE) 1 EACH SPONGE TOPICAL STA (13:18)
--- NOTE | 2021-01-04 13:36 | XR ---
EXAMINATION TYPE: XR hand complete RT DATE OF EXAM: 01/04/2021 COMPARISON: NONE HISTORY: Pain TECHNIQUE: Three views are submitted. FINDINGS: There is soft tissue amputation of the fourth digit. No there is a small ossific density seen adjacen t to the distal phalanx which may represent ectopic fracture. Correlate clinically to exclude foreign body. Arthropathy of the DIP joints noted. Remaining osseous structures intact. IMPRESSION: 1. Soft tissue amputation with fracture of the tuft distal phalanx with adjacent suspected displaced fragment.
--- NOTE | 2021-01-04 14:34 | ED ---
Wound/Laceration HPI - General Chief Complaint: Wound/Laceration Stated Complaint: laceration finger on R hand Time Seen by Provider: 01/04/21 12:50 Source: patient Mode of arrival: ambulatory Limitations: no limitations - History of Present Illness Initial Comments: 80-year-old male presenting today for chief complaint of fourth digit injury after pinching it with a log splutter. Patient states that he believes he removed the tip of his finger with a log splutter. Patient is unsure of last tetanus. He does have limitations in range of motion he denies bone exposure appreciated. Patient states he is on blood thinners he states that the bleeding is slowing down upon arrival in the ER. Patient denies any sensation deficits he admits to pain of the digit he denies additional complaints upon arrival patient appears well nontoxic distress - Related Data Home Medications Medication Instructions Recorded Confirmed Quinapril HCl [Accupril] 20 mg PO BID 02/28/17 11/18/19 Simvastatin [Zocor] 20 mg PO HS 02/28/17 11/18/19 Cholestyramine (with Sugar) 4 gm PO HS 09/03/18 11/18/19 [Cholestyramine Packet] Tamsulosin [Flomax] 0.4 mg PO HS 09/03/18 11/18/19 Calcium (Unknown Dose) 1 dose PO DAILY 11/17/19 Multivitamin/Iron/Folic Acid 1 each PO DAILY 11/17/19 11/18/19 [Centrum Adults Tablet] Previous Rx's Medication Instructions Recorded Aspirin 81 mg PO DAILY chew 10/16/19 Metoprolol Succinate (ER) [Toprol 100 mg PO DAILY #90 tab 11/19/19 Xl] Allergies Allergy/AdvReac Type Severity Reaction Status Date / Time almond Allergy LIPS SWELL Verified 01/04/21 12:38 peanut Allergy LIPS SWELL Verified 01/04/21 12:38 Review of Systems ROS Statement: Those systems with pertinent positive or pertinent negative responses have been documented in the HPI. ROS Other: All systems not noted in ROS Statement are negative. Past Medical History Past Medical History: Hearing Disorder / Deafness, Hypertension, Myocardial Infarction ([place]) Additional Past Medical History / Comment(s): [place] 09[place]/ BILAT HEARING AIDS., HX OF FLAIL CHEST (4 WARREN ACCIDENT APPROX 5 YRS AGO)., SEE CARDIOLOGY H & P. Last Myocardial Infarction Date:: 1997 History of Any Multi-Drug Resistant Organisms: None Reported Past Surgical History: Cholecystectomy, Heart Catheterization, Heart Catheterization With Stent, Hernia Repair, Orthopedic Surgery Additional Past Surgical History / Comment(s): RIGHT KNEE ARTHROSCOPY , DEBBIE INGUINAL HERNIA REPAIR. Past Anesthesia/Blood Transfusion Reactions: No Reported Reaction Date of Last Stent Placement:: 1997 Past Psychological History: No Psychological Hx Reported Smoking Status: Never smoker Past Alcohol Use History: Rare Past Drug Use History: None Reported - Past Family History Mother Family Medical History: No Reported History, Cancer Additional Family Medical History / Comment(s): at 55 from breast cancer. Father Family Medical History: Congestive Heart Failure (CHF), Diabetes Mellitus Additional Family Medical History / Comment(s): at 65 with CHF. Brother(s) Family Medical History: No Reported History Additional Family Medical History / Comment(s): . General Exam - General Exam Comments Initial Comments: General: The patient is awake and alert, in no distress, and does not appear acutely ill. Eye: Pupils are equal, round and reactive to light, extra-ocular movements are intact. No nystagmus. There is normal conjunctiva bilaterally. No signs of icterus. Musculoskeletal: Normal ROM, at MCP, PIP and DIP joints. Strength 5/5. Sensation intact proximal and at tip of digit that has soft tissue coverage. Radial pulses equal bilaterally 2+. Neurological: A&O x 3. CN II-XII intact grossly, There are no obvious motor or sensory deficits. Coordination appears grossly intact. Speech is normal. Skin: Skin is warm and dry and no rashes or lesions are noted. Psychiatric: Cooperative, appropriate mood & affect, normal judgment. Limitations: no limitations Course Vital Signs 01/04/21 12:38 Temperature 98.2 F Pulse Rate 59 L Respiratory 16 Rate Blood Pressure 182/77 O2 Sat by Pulse 94 L Oximetry Medical Decision Making - Medical Decision Making 80yo male presenting for cc finger amputation. Soft tissue avulsion present. tuft fracture suspected. xr confirms. no foreign body. no tendon or bone exposure on exam. tdap updated. ancef given IM. ABRAM Garrett from orthopedic surgery contacted me about the patient s the of the patient reached out to their facility, they reviewed imaging and recommended patient come over for washout and surgical planning. Zadia requested discharge prior to ER wash out/digital block. Patient states he prefers this and would like to be discharge. Patient discharge after bandaging area, is aware he is to [facility] directly to [facility]. Patient refused pain medications. Disposition Clinical Impression: Avulsion, finger tip, Open fracture of tuft of distal phalanx of finger Disposition: HOME SELF-CARE Condition: Good Instructions (If sedation given, give patient instructions): Finger Amputation (ED) Additional Instructions: Please use medication as discussed. Please go directly to Dr. Vigil's office. Please return to emergency room if the symptoms increase or worsen or for any other concerns. Is patient prescribed a controlled substance at d/c from ED?: No Referrals: Segundo Phelps MD [Primary Care Provider] - 1-2 days Juan J Vigil MD [STAFF PHYSICIAN] - 1-2 days Time of Disposition: 14:34
== END 2021-01-04 14:40 | disposition home or self-care (01) ==
LOC: EC 12:24
DX: S62.634B Displaced fracture of distal phalanx of right ring finger, initial encounter for open fracture (principal); I10 Essential (primary) hypertension; H91.90 Unspecified hearing loss, unspecified ear; I25.2 Old myocardial infarction; Z79.899 Other long term (current) drug therapy; Z23 Encounter for immunization; W23.0XXA Caught, crushed, jammed, or pinched between moving objects, initial encounter
CPT/HCPCS: 73130; 90715; 99282; 90471; 96372; J0690; J2001

== ENCOUNTER → 2023-10-10 | Outpatient (CLI) | payer MEDICARE ==
--- NOTE | 2023-10-10 11:15 | US ---
EXAMINATION TYPE: US abdomen complete DATE OF EXAM: 10/10/2023 COMPARISON: CT abdomen on 02/19/2017. CLINICAL INDICATION: Male, 83 years old with history of R10.9 ABD PAIN; Lt flank pain x 1.5 weeks TECHNIQUE: Multiple sonographic images of the abdomen are obtained. FINDINGS: EXAM MEASUREMENTS: Liver Length: 12.6 cm Gallbladder Wall: Surgically absent CBD: 0.3 cm Spleen: 10.6 cm Right Kidney: 11.6x5.0x5.7 cm Left Kidney: 13.0x6.4x5.7 cm Pancreas: Tail obscured by overlying bowel gas Liver: Increased echogenicity seen throughout the liver is suggestive of hepatic steatosis. No focal liver mass is otherwise seen. Subtle nodular contour may relate to cirrhosis. Gallbladder: Surgically absent Evidence for sonographic Barnett's sign: No CBD: wnl Spleen: wnl Right Kidney: No hydronephrosis or masses seen Left Kidney: Likely parapelvic cysts within the left kidney. Upper IVC: wnl Abd Aorta: wnl IMPRESSION: 1. Suggest cirrhosis with hepatic steatosis. 2. No evidence of biliary ductal dilation. 3. Probable parapelvic cysts within the left kidney as was also seen on the prior CT examination.
== END | disposition home or self-care (01) ==
LOC: RADUSWWP 10:13
PROVIDERS: ATTEND Internal Medicine Geriatric Medicine
DX: R10.9 Unspecified abdominal pain (principal)
CPT/HCPCS: 76700

== ENCOUNTER 2023-12-15 12:18 | Observation (INO) | payer MEDICARE ==
--- NOTE | 2023-12-15 12:30 | ED ---
General Adult HPI - General Stated complaint: Cardiac Time Seen by Provider: 12/15/23 12:25 Source: patient, EMS, RN notes reviewed, old records reviewed - History of Present Illness Initial comments: Patient is an 83-year-old male who presents emergency department complaining of syncopal episode and possible cardiac arrest. Patient was cutting up deer meat at home when he began to feel lightheaded. He sat down in the chair. That is when family members noticed that he passed out. They felt for pulses and claimed they could not palpate any. They laid him down the ground and proceeded to do chest compressions for about 10 seconds when patient became alert and oriented. Patient states he remembers sitting down and then the next thing he remembers is waking up on the ground. Bystander CPR lasted no more than 10 or 1 5 seconds per EMS. Patient has no complaints. States he has passed out previously. He does have a history of CAD with PCI, TX, ischemic cardiomyopathy, hypertension, dyslipidemia. Patient also had some proximal atrial tachycardia. Patient has no symptoms currently. Patient has a pacemaker defibrillator. States he has not been having any fevers or chills or sick contacts. Has been dealing with a somewhat chronic left lower quadrant and flank tenderness to palpation. Worse with certain movements and exertion. Denies any nausea, vomiting, diarrhea, constipation. Has no other acute comp laints. Presents for further evaluation. Patient does not recall receiving any form of shock from his device. - Related Data Home Medications Medication Instructions Recorded Confirmed Simvastatin [Zocor] 20 mg PO DAILY 02/28/17 12/15/23 Cholestyramine (with Sugar) 4 gm PO HS 09/03/18 12/15/23 [Cholestyramine Packet] Tamsulosin [Flomax] 0.4 mg PO DAILY 09/03/18 12/15/23 Apixaban [Eliquis] 5 mg PO BID 12/15/23 12/15/23 Magnesium (Unknown Strength) 1 dose PO HS 12/15/23 12/15/23 Metoprolol Succinate (ER) [Toprol 25 mg PO HS 12/15/23 12/15/23 Xl] Metoprolol Succinate [Toprol XL] 50 mg PO DAILY 12/15/23 12/15/23 lisinopriL [Zestril] 20 mg PO BID 12/15/23 12/15/23 Allergies Allergy/AdvReac Type Severity Reaction Status Date / Time almond Allergy LIPS SWELL Verified 12/15/23 14:42 peanut Allergy LIPS SWELL Verified 12/15/23 14:42 Review of Systems ROS Statement: Those systems with pertinent positive or pertinent negative responses have been documented in the HPI. Review of Systems: CONST: Denies fever EYES: Denies blurry vision ENT: Denies nasal congestion C/V: Denies Chest pain RESP: Denies shortness of breath GI: Endorses intermittent left lower quadrant abdominal pain. : Denies dysuria SKIN: Denies rash. MSK: Denies joint pain. NEURO: Denies headache ROS Other: All systems not noted in ROS Statement are negative. 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 Last Myocardial Infarction Date:: 1997 History of Any Multi-Drug Resistant Organisms: None Reported Past Surgical History: Cholecystectomy, Heart Catheterization, Heart Catheterization With Stent, Hernia Repair, Orthopedic Surgery Additional Past Surgical History / Comment(s): RIGHT KNEE ARTHROSCOPY , DEBBIE INGUINAL HERNIA REPAIR. Past Anesthesia/Blood Transfusion Reactions: No Reported Reaction Date of Last Stent Placement:: 1997 Past Psychological History: No Psychological Hx Reported Smoking Status: Never smoker Past Alcohol Use History: Rare Past Drug Use History: None Reported - Past Family History Mother Family Medical History: No Reported History, Cancer Additional Family Medical History / Comment(s): at 55 from breast cancer. Father Family Medical History: Congestive Heart Failure (CHF), Diabetes Mellitus Additional Family Medical History / Comment(s): at 65 with CHF. Brother(s) Family Medical History: No Reported History Additional Family Medical History / Comment(s): . General Exam - General Exam Comments Initial Comments: General: Appears in no acute distress. HEAD: Normal with no signs of head trauma. EYES: PERRLA, EOMI, conjunctiva normal, no discharge. Pupils 3 mm and equal bilaterally. ENT: Hearing grossly intact, normal oropharynx. RESPIRATORY: Clear breath sounds bilaterally. No wheezes, rales, or rhonchi. C/V: Regular rate and rhythm. S1 and S2 auscultated, no edema, peripheral pulses 2+ and intact throughout ABD: Abd is soft, nontender, nondistended EXT: Normal range of motion, no obvious deformity SKIN: No rashes or lesions observed on exposed skin. NEURO: Alert and oriented x 4. Cranial nerves II-XII intact. No focal sensory or strength deficits. Course Vital Signs 12/15/23 12/15/23 12/15/23 12:29 13:25 13:35 Temperature 98.2 F Pulse Rate 53 L 56 L 56 L Pulse Rate [ Travel Ot ] Respiratory 20 16 17 Rate Blood Pressure 137/73 144/73 115/71 Blood Pressure [Left Arm Sitting] Blood Pressure [Left Arm Standing] Blood Pressure [Left Arm Supine] O2 Sat by Pulse 98 98 98 Oximetry 12/15/23 12/15/23 12/15/23 14:01 14:38 14:39 Temperature Pulse Rate 52 L Pulse Rate [ 52 L 55 L Travel Ot ] Respiratory 16 18 16 Rate Blood Pressure 155/70 Blood Pressure 139/64 [Left Arm Sitting] Blood Pressure [Left Arm Standing] Blood Pressure 141/69 [Left Arm Supine] O2 Sat by Pulse 98 96 97 Oximetry 12/15/23 12/15/23 14:40 15:00 Temperature Pulse Rate 49 L Pulse Rate [ 54 L Travel Ot ] Respiratory 17 17 Rate Blood Pressure 131/74 Blood Pressure [Left Arm Sitting] Blood Pressure 129/81 [Left Arm Standing] Blood Pressure [Left Arm Supine] O2 Sat by Pulse 95 98 Oximetry Medical Decision Making - Medical Decision Making Was pt. sent in by a medical professional or institution (, PA, PERSON INVESTIGATOR, urgent care, hospital, or [facility]...) When possible be specific @ -No Did you speak to anyone other than the patient for history (EMS, parent, family, police, friend...)? What history was obtained from this source @ -EMS provided history provided to them by the family. This includes the 10 to 15 seconds of CPR done by family members. Spoke with patient's daughter and were not at the scene but corroborated the story that was provided by EMS. Did you review nursing and triage notes (agree or disagree)? Why? @ -I reviewed and agree with nursing and triage notes Were old charts reviewed (outside hosp., previous admission, EMS record, old EKG, old radiological studies, urgent care reports/EKG's, [facility] records)? Report findings @ -Old charts reviewed including EKGs. Differential Diagnosis (chest pain, altered mental status, abdominal pain women, abdominal pain men, vaginal bleeding, weakness, fever, dyspnea, syncope, hea dache, dizziness, GI bleed, back pain, seizure, CVA, palpatations, mental health, musculoskeletal)? @ -Differential Syncope: Valvular disease, hypertrophic cardiomyopathy, pulmonary embolism, tamponade, tachycardia, bradycardia, TX, hypovolemia, hemorrhage, dissection, anemia, intracranial hemorrhage, seizure, hypoglycemia, carbon monoxide poisoning, this is not meant to be an all-inclusive list. EKG interpreted by me (3pts min.). @ -As above X-rays interpreted by me (1pt min.). @ -Chest x-ray reveals right lower lobe pleural-parenchymal density which is chronic. CT interpreted by me (1pt min.). @ -CT abdomen pelvis with contrast revealed no obvious acute intra-abdominal process. Patient does have bilateral renal cysts. CT brain revealed no obvious acute intracranial process. U/S interpreted by me (1pt. min.). @ -None done What testing was considered but not performed or refused? (CT, X-rays, U/S, labs)? Why? @ -None What meds were considered but not given or refused? Why? @ -None Did you discuss the management of the patient with other professionals (professionals i.e. , PA, PERSON INVESTIGATOR, lab, RT, psych nurse, family welfare social work professor, blow molding machine operator, teacher, special loan officer, case filler)? Give summary @ -I discussed with ICU attending Dr. Leiva. He originally accepted the patient in the ICU however after review of the chart and as well as the story, he recommended stepdown admission for the patient. Placement was changed to 3 S. stepdown after I had admitted the patient. I spoke with the on-call admitting team, Dr. Lara who is in agreement the plan and accepted the admission. Was smoking cessation discussed for >3mins.? @ -No Was critical care preformed (if so, how long)? @ -yes. 35 minutes Were there social determinants of health that impacted care today? How? (Homelessness, low income, unemployed, alcoholism, drug addiction, transportation, low edu. Level, literacy, decrease access to med. care, long-term, rehab)? @ -No Was there de-escalation of care discussed even if they declined (Discuss DNR or withdrawal of care, Hospice)? DNR status @ -No What co-morbidities impacted this encounter? (DM, HTN, Smoking, COPD, CAD, Cancer, CVA, ARF, Chemo, Hep., AIDS, mental health diagnosis, sleep apnea, morbid obesity)? @ -CAD, ischemic cardiomyopathy Was patient admitted / discharged? Hospital course, mention meds given and route, prescriptions, significant lab abnormalities, going to OR and other pertinent info. @ -Based on patient's presentation and physical exam, I do suspect patient presents with a syncopal episode. However questionable cardiac arrest as there was bystander did CPR for 10 to 15 seconds in the field. Patient has since had no symptoms. States he felt lightheaded and has had syncopal episodes in the past which was felt like. Currently has no acute complaints at this time. Vital signs are within acceptable limits. I have lower suspicion for actual cardiac arrest however we will thoroughly workup the patient with cardiopulmonary labs, CT imaging of the head as patient is on blood thinners, as well as chest x-ray. Due to patient's somewhat chronic left flank pain we will also obtain CT abdomen pelvis. Patient was in agreement this plan. He has no symptoms at this time. He will be given a 1 L fluid bolus at this time. EKG showed no signs of acute ischemia. Chronic T wave inversions.CT imaging and chest x-ray is unremarkable. Shows chronic findings including renal cysts as well as a right lower lobe pleural-parenchymal density. Patient's laboratory studies are relatively unremarkable. Troponin is indeterminate at 0.013. Patient has a [facility] A[employer]. We will interrogate it and wait for results. It appears it was placed in November 2019.We will place any paperwork for the interrogation on the chart when it is received. I discussed with ICU attending Dr. Leiva. He originally accepted the patient in the ICU however after review of the chart and as well as the story, he recommended stepdown admission for the patient. Placement was changed to 3 S. stepdown after I had admitted the patient. I spoke with the on-call admitting team, Dr. Lara who is in agreement the plan and accepted the admission.Cardiology consulted. Echo ordered. Undiagnosed new problem with uncertain prognosis? @ -No Drug Therapy requiring intensive monitoring for toxicity (Heparin, Nitro, Insulin, Cardizem)? @ -No Were any procedures done? @ -No Diagnosis/symptom? @ -Syncope Acute, or Chronic, or Acute on Chronic? @ -Acute on chronic Uncomplicated (without systemic symptoms) or Complicated (systemic symptoms)? @ -Complicated Side effects of treatment? @ -None Exacerbation, Progression, or Severe Exacerbation] @ -No Poses a threat to life or bodily function? @ -Yes Diagnosis/symptom? @ -Possible cardiac arrest with bystander CPR for 10 to 15 seconds Acute, or Chronic, or Acute on Chronic? @ -Acute Uncomplicated (without systemic symptoms) or Complicated (systemic symptoms)? @ -Complicated Side effects of treatment? @ -None Exacerbation, Progression, or Severe Exacerbation] @ -No Poses a threat to life or bodily function? @ -Yes Diagnosis/symptom? @ -Abdominal pain/flank pain of unknown etiology, suspect muscle strain versus radiculopathy Acute, or Chronic, or Acute on Chronic? @ -Acute on chronic Uncomplicated (without systemic symptoms) or Complicated (systemic symptoms)? @ -Uncomplicated Side effects of treatment? @ -None Exacerbation, Progression, or Severe Exacerbation] @ -No Poses a threat to life or bodily function? @ -Unlikely - Lab Data Result diagrams: 12/15/23 12:44 12/15/23 12:44 Lab Results 12/15/23 12/15/23 12/15/23 Range/Units 12:44 12:44 12:44 WBC 9.6 (3.8-10.6) k/uL RBC 5.54 (4.30-5.90) m/uL Hgb 16.6 (13.0-17.5) gm/dL Hct 50.6 (39.0-53.0) % MCV 91.4 (80.0-100.0) fL MCH 29.9 (25.0-35.0) pg MCHC 32.8 (31.0-37.0) g/dL RDW 12.8 (11.5-15.5) % Plt Count 198 (150-450) k/uL MPV 8.5 Neutrophils % 74 % Lymphocytes % 15 % Monocytes % 7 % Eosinophils % 2 % Basophils % 1 % Neutrophils # 7.1 (1.3-7.7) k/uL Lymphocytes # 1.5 (1.0-4.8) k/uL Monocytes # 0.7 (0-1.0) k/uL Eosinophils # 0.2 (0-0.7) k/uL Basophils # 0.1 (0-0.2) k/uL PT 12.0 (10.0-12.5) sec INR 1.1 (<1.2) APTT 24.3 (22.0-30.0) sec Sodium (137-145) mmol/L Potassium (3.5-5.1) mmol/L Chloride (98-107) mmol/L Carbon Dioxide (22-30) mmol/L Anion Gap mmol/L BUN (9-20) mg/dL Creatinine (0.66-1.25) mg/dL Est GFR (CKD-EPI)AfAm (>60 ml/min/1.73 sqM) Est GFR (CKD-EPI)NonAf (>60 ml/min/1.73 sqM) Glucose (74-99) mg/dL Plasma Lactic Acid William (0.7-2.0) mmol/L Calcium (8.4-10.2) mg/dL Magnesium (1.6-2.3) mg/dL Total Bilirubin (0.2-1.3) mg/dL AST (17-59) U/L ALT (4-49) U/L Alkaline Phosphatase (38-126) U/L Troponin I (0.000-0.034) ng/mL Total Protein (6.3-8.2) g/dL Albumin (3.5-5.0) g/dL Urine Color Colorless Urine Appearance Clear (Clear) Urine pH 6.0 (5.0-8.0) Ur Specific Jackson 1.045 H (1.001-1.035) Urine Protein Negative (Negative) Urine Glucose (UA) Negative (Negative) Urine Ketones Negative (Negative) Urine Blood Negative (Negative) Urine Nitrite Negative (Negative) Urine Bilirubin Negative (Negative) Urine Urobilinogen <2.0 (<2.0) mg/dL Ur Leukocyte Esterase Negative (Negative) Influenza Type A (PCR) (Not Detectd) Influenza Type B (PCR) (Not Detectd) RSV (PCR) (Not Detectd) SARS-CoV-2 (PCR) (Not Detectd) 12/15/23 12/15/23 12/15/23 Range/Units 12:44 12:44 12:44 WBC (3.8-10.6) k/uL RBC (4.30-5.90) m/uL Hgb (13.0-17.5) gm/dL Hct (39.0-53.0) % MCV (80.0-100.0) fL MCH (25.0-35.0) pg MCHC (31.0-37.0) g/dL RDW (11.5-15.5) % Plt Count (150-450) k/uL MPV Neutrophils % % Lymphocytes % % Monocytes % % Eosinophils % % Basophils % % Neutrophils # (1.3-7.7) k/uL Lymphocytes # (1.0-4.8) k/uL Monocytes # (0-1.0) k/uL Eosinophils # (0-0.7) k/uL Basophils # (0-0.2) k/uL PT (10.0-12.5) sec INR (<1.2) APTT (22.0-30.0) sec Sodium 135 L (137-145) mmol/L Potassium 4.4 (3.5-5.1) mmol/L Chloride 103 (98-107) mmol/L Carbon Dioxide 21 L (22-30) mmol/L Anion Gap 11 mmol/L BUN 21 H (9-20) mg/dL Creatinine 0.85 (0.66-1.25) mg/dL Est GFR (CKD-EPI)AfAm >90 (>60 ml/min/1.73 sqM) Est GFR (CKD-EPI)NonAf 80 (>60 ml/min/1.73 sqM) Glucose 140 H (74-99) mg/dL Plasma Lactic Acid William (0.7-2.0) mmol/L Calcium 9.9 (8.4-10.2) mg/dL Magnesium 2.2 (1.6-2.3) mg/dL Total Bilirubin 1.1 (0.2-1.3) mg/dL AST 42 (17-59) U/L ALT 49 (4-49) U/L Alkaline Phosphatase 79 (38-126) U/L Troponin I 0.013 (0.000-0.034) ng/mL Total Protein 7.2 (6.3-8.2) g/dL Albumin 4.2 (3.5-5.0) g/dL Urine Color Urine Appearance (Clear) Urine pH (5.0-8.0) Ur Specific Jackson (1.001-1.035) Urine Protein (Negative) Urine Glucose (UA) (Negative) Urine Ketones (Negative) Urine Blood (Negative) Urine Nitrite (Negative) Urine Bilirubin (Negative) Urine Urobilinogen (<2.0) mg/dL Ur Leukocyte Esterase (Negative) Influenza Type A (PCR) Not Detected (Not Detectd) Influenza Type B (PCR) Not Detected (Not Detectd) RSV (PCR) Not Detected (Not Detectd) SARS-CoV-2 (PCR) Not Detected (Not Detectd) 12/15/23 Range/Units 13:34 WBC (3.8-10.6) k/uL RBC (4.30-5.90) m/uL Hgb (13.0-17.5) gm/dL Hct (39.0-53.0) % MCV (80.0-100.0) fL MCH (25.0-35.0) pg MCHC (31.0-37.0) g/dL RDW (11.5-15.5) % Plt Count (150-450) k/uL MPV Neutrophils % % Lymphocytes % % Monocytes % % Eosinophils % % Basophils % % Neutrophils # (1.3-7.7) k/uL Lymphocytes # (1.0-4.8) k/uL Monocytes # (0-1.0) k/uL Eosinophils # (0-0.7) k/uL Basophils # (0-0.2) k/uL PT (10.0-12.5) sec INR (<1.2) APTT (22.0-30.0) sec Sodium (137-145) mmol/L Potassium (3.5-5.1) mmol/L Chloride (98-107) mmol/L Carbon Dioxide (22-30) mmol/L Anion Gap mmol/L BUN (9-20) mg/dL Creatinine (0.66-1.25) mg/dL Est GFR (CKD-EPI)AfAm (>60 ml/min/1.73 sqM) Est GFR (CKD-EPI)NonAf (>60 ml/min/1.73 sqM) Glucose (74-99) mg/dL Plasma Lactic Acid William 1.8 (0.7-2.0) mmol/L Calcium (8.4-10.2) mg/dL Magnesium (1.6-2.3) mg/dL Total Bilirubin (0.2-1.3) mg/dL AST (17-59) U/L ALT (4-49) U/L Alkaline Phosphatase (38-126) U/L Troponin I (0.000-0.034) ng/mL Total Protein (6.3-8.2) g/dL Albumin (3.5-5.0) g/dL Urine Color Urine Appearance (Clear) Urine pH (5.0-8.0) Ur Specific Jackson (1.001-1.035) Urine Protein (Negative) Urine Glucose (UA) (Negative) Urine Ketones (Negative) Urine Blood (Negative) Urine Nitrite (Negative) Urine Bilirubin (Negative) Urine Urobilinogen (<2.0) mg/dL Ur Leukocyte Esterase (Negative) Influenza Type A (PCR) (Not Detectd) Influenza Type B (PCR) (Not Detectd) RSV (PCR) (Not Detectd) SARS-CoV-2 (PCR) (Not Detectd) - EKG Data -: EKG Interpreted by Me EKG Comments: 12-lead Electrocardiogram Interpretation Note EKG was reviewed and interpreted by myself. 12-lead ECG performed at 1227 is interpreted by me as revealing sinus bradycardia. At a rate of 54 beats per minute. Hardin is normal. NH interval is 194 ms, QRS duration is 126 ms, QTc is 427 ms. Chronic T wave inversions in the precordial leads seen on prior EKGs. No obvious acute ST segment or T wave abnormalities to suggest acute ischemia.. R wave progression across the precordium was satisfactory. By my interpretation this EKG is non-diagnostic for acute ischemia. Critical Care Time Critical Care Time: Yes Total Critical Care Time: 35 Disposition Clinical Impression: Syncope, Abdominal pain of unknown etiology, Muscle strain Narrative: possible cardiac arrest with bystander cpr Disposition: ADMITTED IP TO THIS HOSP Condition: Stable Time of Disposition: 13:49
[2023-12-15] MEDS: SODIUM CHLORIDE 0.9% 1,000 ML IV STA (12:48)
[2023-12-15 13:00] LABS: Basophils # (A) 0.1 k/uL (0-0.2); Basophils % (A) 1 %; Eosinophils # (A) 0.2 k/uL (0-0.7); Eosinophils % (A) 2 %; HCT 50.6 % (39.0-53.0); HGB 16.6 gm/dL (13.0-17.5); Lymphocytes # (A) 1.5 k/uL (1.0-4.8); Lymphocytes % (A) 15 %; MCH 29.9 pg (25.0-35.0); MCHC 32.8 g/dL (31.0-37.0); MCV 91.4 fL (80.0-100.0); Mean Platelet Volume 8.5; Monocytes # (A) 0.7 k/uL (0-1.0); Monocytes % (A) 7 %; Neutrophils # (A) 7.1 k/uL (1.3-7.7); Neutrophils % (A) 74 %; Platelet Count 198 k/uL (150-450); RBC 5.54 m/uL (4.30-5.90); RDW 12.8 % (11.5-15.5); WBC 9.6 k/uL (3.8-10.6)
--- NOTE | 2023-12-15 13:20 | CT ---
EXAMINATION TYPE: CT brain wo con DATE OF EXAM: 12/15/2023 COMPARISON: 02/05/11 HISTORY: syncope CT DLP: 1095.[address] of the brain was performed. The ventricles, basal cisterns and sulci overlying the cerebral convexities demonstrate mild enlargem ent. There is no evidence for intracranial hemorrhage or sulcal effacement. There is decreased attenuation about the periventricular white matter and deep white matter of both c erebral hemispheres, compatible with chronic small vessel ischemia. Differential diagnosis does inclu de demyelination. No mass effects are seen.No midline shift. Osseous calvarium is intact. If symptoms persist consider MRI. IMPRESSION: 1. Age related atrophic and chronic small vessel ischemic change without acute intracranial process s een at this time.
--- NOTE | 2023-12-15 13:21 | XR ---
EXAMINATION TYPE: XR chest 2V DATE OF EXAM: 12/15/2023 COMPARISON: 11/19/2019 HISTORY: Shortness of breath TECHNIQUE: Frontal and lateral views of the chest are obtained. FINDINGS: Scattered senescent parenchymal changes noted. Hyperinflation compatible with COPD. Pleural parenchymal density right lower lobe is stable relative to the prior study. No acute process seen. Heart size is stable. Mediastinal structures are stable and grossly unremarkable. No evidence for hilar prominence. Degenerative changes dorsal spine. IMPRESSION: 1. Pleural parenchymal density right lower lobe is stable relative to the prior study. No acute proce ss seen.
[2023-12-15 13:25] LABS: INR 1.1 (<1.2); Partial Thromboplastin Time 24.3 sec (22.0-30.0)
--- NOTE | 2023-12-15 13:25 | CT ---
EXAMINATION TYPE: CT abdomen pelvis w con DATE OF EXAM: 12/15/2023 COMPARISON: 02/19/2027 HISTORY: LLQ pain CT DLP: 1309.7 mGycm CONTRAST: CT scan of the abdomen and pelvis is performed without Oral Contrast and with IV Contrast, patient in jected with 100 mL of Isovue 300. FINDINGS: LUNG BASES-: No visible nodule. No infiltrate. Again noted is fat containing right diaphragmatic her javier. Evidence of cardiomegaly. LIVER/GB: The gallbladder surgically absent. No space occupying hepatic lesion. Biliary tree is of no rmal caliber. PANCREAS: No inflammation. No distinct mass. SPLEEN: No splenic enlargement. No lesion seen. ADRENALS: No nodule. No thickening. KIDNEYS/BLADDER: No hydronephrosis. No nephrolithiasis. Parapelvic cysts are seen left greater than right. Urinary bladder grossly unremarkable. BOWEL: Normal appendix. Normal bowel caliber. No inflammation. GENITAL ORGANS: Prostate gland enlargement. LYMPH NODES: No greater than 1cm abdominal or pelvic lymph nodes are appreciated. AORTA: No significant abnormality. OSSEOUS STRUCTURES: No significant abnormality is seen. OTHER: No significant additional abnormality is seen. IMPRESSION: 1. No acute process seen to account for the patient's symptoms..
[2023-12-15 13:26] LABS: Potassium 4.4 mmol/L (3.5-5.1)
[2023-12-15 13:27] LABS: ALT 49 U/L (4-49); AST 42 U/L (17-59); African American GFR (CKD) >90 (>60 ml/min/1.73 sqM); Albumin 4.2 g/dL (3.5-5.0); Alkaline Phosphatase 79 U/L (38-126); Anion Gap 11 mmol/L; Blood Urea Nitrogen 21 mg/dL (9-20); Calcium 9.9 mg/dL (8.4-10.2); Carbon Dioxide 21 mmol/L (22-30); Chloride 103 mmol/L (98-107); Glucose 140 mg/dL (74-99); Magnesium 2.2 mg/dL (1.6-2.3); Non-African American GFR(CKD) 80 (>60 ml/min/1.73 sqM); Sodium 135 mmol/L (137-145); Total Bilirubin 1.1 mg/dL (0.2-1.3); Total Protein 7.2 g/dL (6.3-8.2)
[2023-12-15] MEDS ORDERED: NALOXONE 0.4 MG/ML 1 ML VIAL IV PRN ×2 (14:07→14:09)
[2023-12-15] MEDS ORDERED: ACETAMINOPHEN TAB 325 MG TAB PO PRN (14:07)
[2023-12-15] MEDS: ASPIRIN 81 MG PO STA (14:35)
[2023-12-15 15:24] LABS: Appearance,Urine Clear (Clear); Bilirubin,Urine Negative (Negative); Blood,Urine Negative (Negative); Color,Urine Colorless; Glucose,Urine (UA) Negative (Negative); Ketones,Urine Negative (Negative); Leukocyte Esterase,Urine Negative (Negative); Nitrite,Urine Negative (Negative); Protein,Urine Negative (Negative); Specific Gravity,Urine 1.045 (1.001-1.035); Urobilinogen,Urine <2.0 mg/dL (<2.0)
[2023-12-15] MEDS: APIXABAN 5 MG TAB PO SCH (21:27)
[2023-12-15] MEDS: lisinopriL 20 MG TAB PO SCH (21:27)
--- NOTE | 2023-12-15 23:12 | P.HPIM ---
History of Present Illness H&P Date: 12/15/23 Chief Complaint: Syncope Patient is a 83-year-old male with a known history of coronary artery disease with a stent placement, history of [place], paroxysmal atrial tachycardia, mild ischemic cardiomyopathy ejection fraction 40% with longer than of nonsustained V. tach status post dual-chamber ICD and hypertension presents to ER by EMS due to acute syncopal episode and possible cardiac arrest. Patient was getting deer meat at home and has been standing for about an hour at home. He started having lightheaded and dizzy and went and sat in the chair. Patient leaned his head forward and passed out. Family numbers could not palpate pulses. Patient was outside the home at the time and was noticed by the bystander was also RN. He was thumbed on the chest and was given CPR x 3 compressions before he started waking up. Patient states that he remembers sitting down and then the next thing he r remembers was waking up on the ground before picked up by the EMS. Defibrillator was never went off. Patient was given 1 L fluid bolus in the ER. Patient denied any palpitations before the episode. No bowel or bladder incontinence. No weakness and seizures noted. Patient and his has been sick recently with influenza and is being recovering and still having cough without any sputum production. Denies any fever or chills. No chest pain or shortness of breath. EKG showed sinus bradycardia with sinus arrhythmia. CT head showed age-related atrophic and chronic small vessel ischemic change without acute intracranial process seen at this time. Chest x-ray showed pleural parenchymal density right lower lobe with stable related to the prior study. No acute process seen. CT of the abdomen pelvis showed no acute process to account for patient's left lower quadrant pain. Laboratory data showed WBC 9.6 hemoglobin 16.6 and platelets 198 Sodium 135 potassium 4.4 chloride 103 bicarb is 21 BUN 21 and creatinine 0.85 and blood sugar 140 Troponin x 3 negative Urinalysis is negative for infection Influenza, RSV and COVID-19 PCR not detected. Review of Systems Constitutional: Patient denies any fever or chills . Generalized weakness. Abdomen: Patient denied any nausea or vomiting or abd. pain Cardiovascular: Patient denies any chest pain or short of breath no palpitations. No leg swelling Respiratory: patient denied any cough . no sputum production. No shortness of breath Neurologic: Patient denied any numbness or tingling or headache. Was having dizzy and lightheadedness. Musculoskeletal: Patient denies any complaints of joint swelling or deformity. Skin: Negative Psychiatric: Negative Endocrine: No heat or cold intolerance. No recent weight gain. Genitourinary: No dysuria or hematuria. All other 14 point ROS negative except the above Past Medical History Past Medical History: Hearing Disorder / Deafness, Hypertension, Myocardial Infarction ([place]) Additional Past Medical History / Comment(s): [place] 09/01/98/ BILAT HEARING AIDS., HX OF FLAIL CHEST (4 WARREN ACCIDENT APPROX 5 YRS AGO)., SEE CARDIOLOGY H & P. Last Myocardial Infarction Date:: 1997 History of Any Multi-Drug Resistant Organisms: None Reported Past Surgical History: Cholecystectomy, Heart Catheterization, Heart Catheterization With Stent, Hernia Repair, Orthopedic Surgery Additional Past Surgical History / Comment(s): RIGHT KNEE ARTHROSCOPY , DEBBIE INGUINAL HERNIA REPAIR. Past Anesthesia/Blood Transfusion Reactions: No Reported Reaction Date of Last Stent Placement:: 1997 Past Psychological History: No Psychological Hx Reported Smoking Status: Never smoker Past Alcohol Use History: Rare Past Drug Use History: None Reported - Past Family History Mother Family Medical History: No Reported History, Cancer Additional Family Medical History / Comment(s): at 55 from breast cancer. Father Family Medical History: Congestive Heart Failure (CHF), Diabetes Mellitus Additional Family Medical History / Comment(s): at 65 with CHF. Brother(s) Family Medical History: No Reported History Additional Family Medical History / Comment(s): . Medications and Allergies Home Medications Medication Instructions Recorded Confirmed Type Simvastatin [Zocor] 20 mg PO DAILY 02/28/17 12/15/23 History Cholestyramine (with Sugar) 4 gm PO HS 09/03/18 12/15/23 History [Cholestyramine Packet] Tamsulosin [Flomax] 0.4 mg PO DAILY 09/03/18 12/15/23 History Apixaban [Eliquis] 5 mg PO BID 12/15/23 12/15/23 History Magnesium (Unknown Strength) 1 dose PO HS 12/15/23 12/15/23 History Metoprolol Succinate (ER) [Toprol 25 mg PO HS 12/15/23 12/15/23 History Xl] Metoprolol Succinate [Toprol XL] 50 mg PO DAILY 02/03/24 02/03/24 History lisinopriL [Zestril] 20 mg PO BID 12/15/23 12/15/23 History Allergies Allergy/AdvReac Type Severity Reaction Status Date / Time almond Allergy LIPS SWELL Verified 12/15/23 14:42 peanut Allergy LIPS SWELL Verified 12/15/23 14:42 Physical Exam Vitals: Vital Signs Temp Pulse Pulse Resp BP BP BP 12/15/23 15:00 49 L 17 131/74 12/15/23 14:40 54 L 17 129/81 12/15/23 14:39 55 L 16 139/64 12/15/23 14:38 52 L 18 12/15/23 14:01 52 L 16 155/70 12/15/23 13:35 56 L 17 115/71 12/15/23 13:25 56 L 16 144/73 12/15/23 12:29 98.2 F 53 L 20 137/73 BP Pulse Ox 12/15/23 15:00 98 12/15/23 14:40 95 12/15/23 14:39 97 12/15/23 14:38 141/69 96 12/15/23 14:01 98 12/15/23 13:35 98 12/15/23 13:25 98 12/15/23 12:29 98 Intake and Output 12/15/23 12/15/23 12/15/23 06:59 14:59 22:59 Other: Weight 81.647 kg PHYSICAL EXAMINATION: Patient is lying in the bed comfortably, no acute distress, awake alert and oriented.. Hard of hearing. HEENT: Normocephalic. Neck is supple. Pupils reactive. Nostrils clear. Oral cavity is moist. Neck reveals no JVD, carotid bruits, or thyromegaly. CHEST EXAMINATION: Trachea is central. Symmetrical expansion. Lung dc clear to auscultation and percussion. CARDIAC: Normal S1, S2 with no gallops. No murmurs ABDOMEN: Soft. Bowel sounds present. Nontender. No organomegaly. No abdominal bruits. Extremities: reveal no edema. No clubbing or cyanosis Neurologically awake, alert, oriented x3 with well-coordinated movements. No focal deficits noted Skin: No rash or skin lesions. Psychiatric: Coperative. Nonsuicidal, Musculoskeletal: No joint swelling or deformity. Normal range of motion. Results CBC & Chem 7: 12/15/23 12:44 12/15/23 12:44 Labs: Abnormal Lab Results - Last 24 Hours (Table) 12/15/23 12/15/23 Range/Units 12:44 12:44 Sodium 135 L (137-145) mmol/L Carbon Dioxide 21 L (22-30) mmol/L BUN 21 H (9-20) mg/dL Glucose 140 H (74-99) mg/dL Ur Specific [place] 1.045 H (1.001-1.035) Thrombosis Risk Factor Assmnt - DVT/VTE Prophylaxis DVT/VTE Prophylaxis: Pharmacologic Prophylaxis ordered Assessment and Plan Assessment: Acute syncopal episode likely orthostatic hypotension and rule out arrhythmia with possible cardiac arrest.. Status post chest compression x 3 at home. AICD was never went off. Sinus bradycardia with sinus arrhythmia Paroxysmal atrial tachycardia Coronary artery disease history of stent placement Mild ischemic cardiomyopathy ejection fraction 40% with longer nonsustained V. tach. Status post ICD placement in November 2019 Recent influenza viral infection. Dehydration and volume depletion Hypertension Hearing disorder/deafness BPH on Flomax at home DVT prophylaxis patient is already on Eliquis. Plan: Patient was given IV fluid bolus. Orthostatic vitals were ordered. Continues with monitoring. AICD interrogation. Cardiology consult for further evaluation. 2D echocardiogram was ordered. Continued home blood pressure medications. Encourage oral intake and follow closely. Time with Patient: Greater than 30
[2023-12-15] MEDS: METOPROLOL SUCCINATE (ER) 25 MG TAB.ER.24H PO SCH (23:44)
[2023-12-16] MEDS: METOPROLOL SUCCINATE (ER) 50 MG TAB.ER.24H PO SCH (08:16)
[2023-12-16] MEDS: ATORVASTATIN 10 MG TAB PO SCH (08:16)
[2023-12-16] MEDS: TAMSULOSIN 0.4 MG CAP.ER.24H PO SCH (08:16)
[2023-12-16 12:51] LABS: Basophils # (A) 0.1 k/uL (0-0.2); Basophils % (A) 1 %; Eosinophils # (A) 0.2 k/uL (0-0.7); Eosinophils % (A) 3 %; HGB 16.6 gm/dL (13.0-17.5); Lymphocytes # (A) 1.8 k/uL (1.0-4.8); Lymphocytes % (A) 24 %; MCH 30.3 pg (25.0-35.0); MCHC 33.1 g/dL (31.0-37.0); MCV 91.6 fL (80.0-100.0); Mean Platelet Volume 8.5; Monocytes # (A) 0.6 k/uL (0-1.0); Monocytes % (A) 8 %; Neutrophils # (A) 4.8 k/uL (1.3-7.7); Neutrophils % (A) 63 %; Platelet Count 195 k/uL (150-450); RBC 5.46 m/uL (4.30-5.90); RDW 12.9 % (11.5-15.5); WBC 7.6 k/uL (3.8-10.6)
[2023-12-16 13:12] LABS: African American GFR (CKD) >90 (>60 ml/min/1.73 sqM); Anion Gap 5 mmol/L; Blood Urea Nitrogen 16 mg/dL (9-20); Calcium 9.7 mg/dL (8.4-10.2); Carbon Dioxide 28 mmol/L (22-30); Chloride 103 mmol/L (98-107); Glucose 138 mg/dL (74-99); Non-African American GFR(CKD) 87 (>60 ml/min/1.73 sqM); Potassium 4.8 mmol/L (3.5-5.1); Sodium 136 mmol/L (137-145)
[2023-12-16] MEDS: ADENOSINE 3 MG/ML 2 ML VIAL IVP STA (17:49)
--- NOTE | 2023-12-16 18:34 | P.CRDCN ---
History of Present Illness Consult date: 12/16/23 Consult reason: sycope Chief complaint: syncope History of present illness: History of present illness: Patient is a pleasant 83-year-old male with significant past medical history of CAD status post PCI, paroxysmal atrial fibrillation, mild ischemic cardiomyopathy with ejection fraction 40%, history of nonsustained VT status post dual-chamber AICD, hypertension who presented to the ER status post syncopal episode with questionable cardiac arrest. He does follow with Dr. Azul in the office. He was newly diagnosed with atrial fibrillation in September 2023 and was started on Eliquis at that time. He does report having intermittent episodes of feeling lightheaded where he needs to sit down and then the symptoms will resolve. He also reports having left hip bone pain that radiates to his lower back that has been worse over the past few months. Today he was standing and grinding meat for 1 to 2 hours and like he needed to sit down, he did sit down and then proceeded to lose consciousness. A family friend was present that is a RN and states that he did not have a pulse and was not breathing and she thumped his chest and gave him CPR x 3 compressions and then he woke up. His AICD did not go off. They report the EMS had a rhythm strip and his heart rate was int the 40's. No EMS report available currently. Head CT shows no acute intracranial process. Chest x-ray shows pleural parenchymal density right lower lobe that is stable. CT of the abdomen and pelvis with no acute process. Labs reviewed: Troponin negative x 3, sodium 135, potassium 4.4, creatinine 0.85, lactic acid 1.8. EKG shows sinus bradycardia with moderate T wave abnormalities. REVIEW OF SYSTEMS: No fever or chills. No cough or expectoration. No diaphoresis. Patient denies headache, dizziness, blurred vision, double vision. Patient denies any stomach discomfort. No nausea, vomiting. No hematochezia. No hematemesis. Denies any black stools or blood in his stools. Denies dysuria or hematuria. No muscle weakness or numbness. No chest pain or pressure. Reports syncope and left hip pain. PHYSICAL EXAMINATION: This is a 83-year-old male in no apparent distress at the time of my examination. HEENT: Head is atraumatic, normocephalic. Pupils are equal, round. Sclerae anicteric. Conjunctivae are clear. Mucous membranes of the mouth are moist. Neck is supple. There is no jugular venous distention. No carotid bruit is heard. CHEST EXAMINATION: Lungs are clear to auscultation. No chest wall tenderness is noted on palpation or with deep breathing. HEART EXAMINATION: Heart regular rate and rhythm. S1, S2 heard. No murmurs, gallops or rub. ABDOMEN: Soft, nontender. Bowel sounds are heard. EXTREMITIES: 2+ peripheral pulses with no evidence of peripheral edema and no calf tenderness noted. NEUROLOGIC EXAMINATION: Patient is awake, alert and oriented x3. IMPRESSION AND PLAN: CAD status post PCI Paroxysmal atrial fibrillation Ischemic cardiomyopathy AICD Hypertension Syncopal episode Left hip and back pain Abnormal EKG PLAN: Echo to evaluate heart function and structure. Device interrogation revealed no shock, no further a-fib episodes. Device may be over sensing as pacer is set to 50. Requested [facility] EMS report to see rhythm strips and VS. Check orthostatic VS. Will consider trial of adenosine to test if pacemaker kicks in. We will follow. I am dictating on behalf of Dr. Wyatt Astorga's history/physical and assessment/plan. Past Medical History Past Medical History: Hearing Disorder / Deafness, Hypertension, Myocardial Infarction ([place]) Additional Past Medical History / Comment(s): [place] 09/01/98/ BILAT HEARING AIDS., HX OF FLAIL CHEST (4 [place]EN ACCIDENT APPROX 5 YRS AGO)., SEE CARDIOLOGY H & P. Last Myocardial Infarction Date:: 1997 History of Any Multi-Drug Resistant Organisms: None Reported Past Surgical History: Cholecystectomy, Heart Catheterization, Heart Catheterization With Stent, Hernia Repair, Orthopedic Surgery Additional Past Surgical History / Comment(s): RIGHT KNEE ARTHROSCOPY , DEBBIE INGUINAL HERNIA REPAIR. Past Anesthesia/Blood Transfusion Reactions: No Reported Reaction Date of Last Stent Placement:: 1997 Past Psychological History: No Psychological Hx Reported Smoking Status: Never smoker Past Alcohol Use History: Rare Past Drug Use History: None Reported - Past Family History Mother Family Medical History: No Reported History, Cancer Additional Family Medical History / Comment(s): at 55 from breast cancer. Father Family Medical History: Congestive Heart Failure (CHF), Diabetes Mellitus Additional Family Medical History / Comment(s): at 65 with CHF. Brother(s) Family Medical History: No Reported History Additional Family Medical History / Comment(s): . Medications and Allergies Home Medications Medication Instructions Recorded Confirmed Type Simvastatin [Zocor] 20 mg PO DAILY 02/28/17 12/15/23 History Cholestyramine (with Sugar) 4 gm PO HS 09/03/18 12/15/23 History [Cholestyramine Packet] Tamsulosin [Flomax] 0.4 mg PO DAILY 09/03/18 12/15/23 History Apixaban [Eliquis] 5 mg PO BID 12/15/23 12/15/23 History Magnesium (Unknown Strength) 1 dose PO HS 12/15/23 12/15/23 History Metoprolol Succinate (ER) [Toprol 25 mg PO HS 12/15/23 12/15/23 History Xl] Metoprolol Succinate [Toprol XL] 50 mg PO DAILY 12/15/23 12/15/23 History lisinopriL [Zestril] 20 mg PO BID 12/15/23 12/15/23 History Allergies Allergy/AdvReac Type Severity Reaction Status Date / Time almond Allergy LIPS SWELL Verified 12/15/23 14:42 peanut Allergy LIPS SWELL Verified 12/15/23 14:42 Physical Exam Vitals: Vital Signs Temp Pulse Pulse Pulse Resp BP BP 12/16/23 09:41 55 L 16 12/16/23 08:10 97.0 F L 55 L 16 147/83 12/16/23 04:00 98.6 F 56 L 16 140/74 12/15/23 23:43 55 L 16 92/72 12/15/23 21:26 51 L 18 132/66 12/15/23 16:25 98.0 F 12/15/23 16:15 49 L 16 155/80 12/15/23 16:00 97.5 F L 49 L 12 145/72 12/15/23 15:00 49 L 17 131/74 12/15/23 14:40 54 L 17 12/15/23 14:39 55 L 16 139/64 12/15/23 14:38 52 L 18 12/15/23 14:01 52 L 16 155/70 12/15/23 13:35 56 L 17 115/71 12/15/23 13:25 56 L 16 144/73 12/15/23 12:29 98.2 F 53 L 20 137/73 BP BP Pulse Ox 12/16/23 09:41 12/16/23 08:10 95 12/16/23 04:00 95 12/15/23 23:43 93 L 12/15/23 21:26 95 12/15/23 16:25 12/15/23 16:15 95 12/15/23 16:00 96 12/15/23 15:00 98 12/15/23 14:40 129/81 95 12/15/23 14:39 97 12/15/23 14:38 141/69 96 12/15/23 14:01 98 12/15/23 13:35 98 12/15/23 13:25 98 12/15/23 12:29 98 Intake and Output 12/15/23 12/16/23 12/16/23 22:59 06:59 14:59 Intake Total 120 Balance 120 Intake: Oral 120 Other: Voiding Method Toilet Toilet # Voids 1 Results 12/16/23 12:15 12/16/23 12:15 Cardiac Enzymes 12/15/23 12/15/23 12/15/23 Range/Units 12:44 12:44 15:50 AST 42 (17-59) U/L Troponin I 0.013 <0.012 (0.000-0.034) ng/mL 12/15/23 Range/Units 19:37 AST (17-59) U/L Troponin I <0.012 (0.000-0.034) ng/mL Coagulation 12/15/23 Range/Units 12:44 PT 12.0 (10.0-12.5) sec APTT 24.3 (22.0-30.0) sec CBC 12/15/23 Range/Units 12:44 WBC 9.6 (3.8-10.6) k/uL RBC 5.54 (4.30-5.90) m/uL Hgb 16.6 (13.0-17.5) gm/dL Hct 50.6 (39.0-53.0) % Plt Count 198 (150-450) k/uL Comprehensive Metabolic Panel 12/15/23 Range/Units 12:44 Sodium 135 L (137-145) mmol/L Potassium 4.4 (3.5-5.1) mmol/L Chloride 103 (98-107) mmol/L Carbon Dioxide 21 L (22-30) mmol/L BUN 21 H (9-20) mg/dL Creatinine 0.85 (0.66-1.25) mg/dL Glucose 140 H (74-99) mg/dL Calcium 9.9 (8.4-10.2) mg/dL AST 42 (17-59) U/L ALT 49 (4-49) U/L Alkaline Phosphatase 79 (38-126) U/L Total Protein 7.2 (6.3-8.2) g/dL Albumin 4.2 (3.5-5.0) g/dL Current Medications Generic Name Dose Route Start Last Admin Trade Name Freq PRN Reason Stop Dose Admin Acetaminophen 650 mg 12/15/23 14:07 Acetaminophen Tab 325 Mg Tab PO Q4HR PRN Fever and/or Mild Pain Apixaban 5 mg 12/15/23 21:00 12/16/23 08:16 Apixaban 5 Mg Tab PO 5 mg BID PING Administration Protocol Atorvastatin Calcium 10 mg 12/16/23 09:00 12/16/23 08:16 Atorvastatin 10 Mg Tab PO 10 mg DAILY PING Administration Lisinopril 20 mg 12/15/23 21:00 12/16/23 08:16 Lisinopril 20 Mg Tab PO 20 mg BID PING Administration Metoprolol Succinate 50 mg 12/16/23 09:00 12/16/23 08:16 Metoprolol Succinate (Er) 50 Mg Tab.Er.24h PO 50 mg DAILY PING Administration Metoprolol Succinate 25 mg 12/15/23 21:00 12/15/23 23:44 Metoprolol Succinate (Er) 25 Mg Tab.Er.24h PO Not Given HS [facility] Naloxone HCl 0.2 mg 12/15/23 14:09 Naloxone 0.4 Mg/Ml 1 Ml Vial IV Q2M PRN Opioid Reversal Tamsulosin HCl 0.4 mg 12/16/23 09:00 12/16/23 08:16 Tamsulosin 0.4 Mg Cap.Er.24h PO 0.4 mg DAILY PING Administration Intake and Output 12/15/23 12/16/23 12/16/23 22:59 06:59 14:59 Intake Total 120 Balance 120 Intake: Oral 120 Other: Voiding Method Toilet Toilet # Voids 1 12/15/23 12:44 12/15/23 12:44
--- NOTE | 2023-12-17 00:49 | P.PN ---
Subjective Progress Note Date: 12/16/23 Patient is a 83-year-old male with a known history of coronary artery disease with a stent placement, history of [place], paroxysmal atrial tachycardia, mild ischemic cardiomyopathy ejection fraction 40% with longer than of nonsustained V. tach status post dual-chamber ICD and hypertension presents to ER by EMS due to acute syncopal episode and possible cardiac arrest. Patient was getting deer meat at home and has been standing for about an hour at home. He started having lightheaded and dizzy and went and sat in the chair. Patient leaned his head forward and passed out. Family numbers could not palpa te pulses. Patient was outside the home at the time and was noticed by the bystander was also RN. He was thumbed on the chest and was given CPR x 3 compressions before he started waking up. Patient states that he remembers sitting down and then the next thing he r remembers was waking up on the ground before picked up by the EMS. Defibrillator was never went off. Patient was given 1 L fluid bolus in the ER. Patient denied any palpitations before the episode. No bowel or bladder incontinence. No weakness and seizures noted. Patient and his has been sick recently with influenza and is being recovering and still having cough without any sputum production. Denies any fever or chills. No chest pain or shortness of breath. EKG showed sinus bradycardia with sinus arrhythmia. CT head showed age-related atrophic and chronic small vessel ischemic change without acute intracranial process seen at this time. Chest x-ray showed pleural parenchymal density right lower lobe with stable related to the prior study. No acute process seen. CT of the abdomen pelvis showed no acute process to account for patient's left lower quadrant pain. Laboratory data showed WBC 9.6 hemoglobin 16.6 and platelets 198 Sodium 135 potassium 4.4 chloride 103 bicarb is 21 BUN 21 and creatinine 0.85 and blood sugar 140 Troponin x 3 negative Urinalysis is negative for infection Influenza, RSV and COVID-19 PCR not detected. 12/16/2022 Patient is currently sitting on side of the bed. Awake alert and oriented x 3. No complaints of chest pain or shortness of breath. No headache or dizziness. No nausea vomiting or abdominal pain or diarrhea. Denies any new overnight issues. Patient was seen by cardiology and device is being interrogated. Laboratory results sodium 136 potassium 4.8 chloride 103 bicarb is 28 BUN 16 and creatinine 0.71 and blood sugars 138. Current medications reviewed. Objective - Vital Signs Vital signs: Vital Signs Temp 97.7 F 12/16/23 15:30 Pulse 58 L 12/16/23 15:30 Resp 16 12/16/23 15:30 BP 144/66 12/16/23 17:14 Pulse Ox 95 12/16/23 15:30 FiO2 Intake & Output 12/15/23 12/16/23 12/16/23 18:59 06:59 18:59 Intake Total 120 Output Total 0 Balance 120 Weight 81.647 kg Intake: Oral 120 Output: Gastric Drainage 0 Urine 0 Stool 0 Urine/Stool Mix 0 Emesis 0 Oral Regurgitation 0 Other 0 Other: Voiding Method Toilet Toilet # Voids 0 1 # Bowel Movements 0 - Exam PHYSICAL EXAMINATION: Patient is lying in the bed comfortably, no acute distress, awake alert and oriented.. Hard of hearing. HEENT: Normocephalic. Neck is supple. Pupils reactive. Nostrils clear. Oral cavity is moist. Neck reveals no JVD, carotid bruits, or thyromegaly. CHEST EXAMINATION: Trachea is central. Symmetrical expansion. Lung dc clear to auscultation and percussion. CARDIAC: Normal S1, S2 with no gallops. No murmurs ABDOMEN: Soft. Bowel sounds present. Nontender. No organomegaly. No abdominal bruits. Extremities: reveal no edema. No clubbing or cyanosis Neurologically awake, alert, oriented x3 with well-coordinated movements. No focal deficits noted Skin: No rash or skin lesions. Psychiatric: Coperative. Nonsuicidal, Musculoskeletal: No joint swelling or deformity. Normal range of motion. - Labs CBC & Chem 7: 12/16/23 12:15 12/16/23 12:15 Labs: Abnormal Lab Results - Last 24 Hours (Table) 12/16/23 Range/Units 12:15 Sodium 136 L (137-145) mmol/L Glucose 138 H (74-99) mg/dL Assessment and Plan Assessment: Acute syncopal episode likely orthostatic hypotension and rule out arrhythmia with possible cardiac arrest.. Status post chest compression x 3 at home. AICD was never went off. Abnormal EKG Sinus bradycardia with sinus arrhythmia Paroxysmal atrial tachycardia Coronary artery disease history of stent placement Mild ischemic cardiomyopathy ejection fraction 40% with longer nonsustained V. tach. Status post ICD placement in November 2019 Recent influenza viral infection. Dehydration and volume depletion Hypertension Hearing disorder/deafness BPH on Flomax at home DVT prophylaxis patient is already on Eliquis. Plan: Patient was given IV fluid bolus. Orthostatic vitals were ordered. Continues with monitoring. AICD interrogation. Cardiology is on board. 2D echocardiogram was ordered. Continued home blood pressure medications. Encourage oral intake and follow closely. Time with Patient: Greater than 30
[2023-12-17 07:22] LABS: African American GFR (CKD) >90 (>60 ml/min/1.73 sqM); Anion Gap 6 mmol/L; Blood Urea Nitrogen 16 mg/dL (9-20); Calcium 9.4 mg/dL (8.4-10.2); Carbon Dioxide 25 mmol/L (22-30); Chloride 104 mmol/L (98-107); Glucose 118 mg/dL (74-99); Non-African American GFR(CKD) 88 (>60 ml/min/1.73 sqM); Potassium 4.3 mmol/L (3.5-5.1); Sodium 135 mmol/L (137-145)
[2023-12-17 08:49] VITALS: TEMP 97.6
--- NOTE | 2023-12-17 10:46 | CA ---
Transthoracic Echo Report Name: Galo Brown Age: 83 Gender: M : 1940 Exam Date: 12/17/2023 09:41 Exam Location: [facility] Ht (in): 70 Wt (lb): 180 Ordering Physician: Davon Stallworth MD Attending/Referring Phys: Business Systems Consultant Panda Richards RD Procedure CPT: Indications: Syncope Cardiac Hx: Technical Quality: Fair Contrast 1: Total Dose (mL): Contrast 2: Total Dose (mL): MEASUREMENTS (Male / Female) Normal Values 2D ECHO LV Diastolic Diameter PLAX 4.2 cm 4.2 - 5.9 / 3.9 - 5.3 cm LV Systolic Diameter PLAX 2.8 cm IVS Diastolic Thickness 1.3 cm 0.6 - 1.0 / 0.6 - 0.9 cm LVPW Diastolic Thickness 1.1 cm 0.6 - 1.0 / 0.6 - 0.9 cm LV Relative Wall Thickness 0.6 RV Internal Dim ED PLAX 3.4 cm LVOT Diameter 2.8 cm Aortic Root Diameter 3.1 cm LA Systolic Diameter LX 2.5 cm 3.0 - 4.0 / 2.7 - 3.8 cm LV Diastolic Volume MOD BP 54.3 cm??? 67 - 155 / 56 - 104 cm??? LV Systolic Volume MOD BP 20.7 cm??? 22 - 58 / 19 - 49 cm??? LV Ejection Fraction MOD BP 61.9 % >= 55 % LV Cardiac Index MOD BP 865.3 cm???/min???m??? LV Diastolic Volume MOD 4C 57.4 cm??? LV Systolic Volume MOD 4C 24.9 cm??? LV Ejection Fraction MOD 4C 56.5 % LV Cardiac Index MOD 4C 835.6 cm???/min???m??? LV Diastolic Length 4C 7.2 cm LV Systolic Length 4C 6.1 cm LV Diastolic Volume MOD 2C 45.8 cm??? LV Systolic Volume MOD 2C 16.0 cm??? LV Ejection Fraction MOD 2C 65.1 % LV Cardiac Index MOD 2C 767.6 cm???/min???m??? LV Diastolic Length 2C 6.3 cm LV Systolic Length 2C 6.7 cm LA Volume 37.5 cm??? 18 - 58 / 22 - 52 cm??? LA Volume Index 18.6 cm???/m??? 16 - 28 cm???/m??? DOPPLER AV Peak Velocity 138.1 cm/s AV Peak Gradient 7.6 mmHg AV Mean Velocity 72.3 cm/s AV Mean Gradient 2.6 mmHg AV Velocity Time Integral 26.7 cm LVOT Peak Velocity 92.2 cm/s LVOT Peak Gradient 3.4 mmHg LVOT Velocity Time Integral 22.6 cm LVOT Stroke Volume 142.1 cm??? LVOT Stroke Volume Index 71.2 ml/m??? LVOT Cardiac Index 3659.6 cm???/min???m??? AV Area Cont Eq vti 5.3 cm??? AV Area Cont Eq pk 4.2 cm??? MV Peak Velocity 150.0 cm/s MV Peak Gradient 9.0 mmHg MV Mean Velocity 56.6 cm/s MV Mean Gradient 1.8 mmHg MV Velocity Time Integral 52.5 cm Mitral E Point Velocity 64.1 cm/s Mitral A Point Velocity 132.3 cm/s Mitral E to A Ratio 0.5 MV Deceleration Time 331.6 ms MV E' Velocity 4.9 cm/s Mitral E to MV E' Ratio 13.0 TR Peak Velocity 247.5 cm/s TR Peak Gradient 24.5 mmHg Right Ventricular Systolic Press 29.5 mmHg PV Peak Velocity 93.0 cm/s PV Peak Gradient 3.5 mmHg FINDINGS Left Ventricle Normal LV size . Left ventricular ejection fraction is estimated at 55-60 %.normal left ventricular wall motion. Mildly increased left ventricular wall thickness. Normal left ventricular diastolic filling pattern. Right Ventricle Normal right ventricular size. RVSP= 29mmHg. Right Atrium Normal right atrial size. Left Atrium Normal left atrial size. Mitral Valve Moderate MAC. Mild mitral regurgitation. No mitral stenosis. Aortic Valve Trileaflet aortic valve. No aortic regurgitation. No aortic stenosis. Tricuspid Valve Structurally normal tricuspid valve. Mild TR. Pulmonic Valve Pulmonic valve not well visualized. No pulmonic regurgitation. Pericardium Normal pericardium. Aorta Normal size aortic root. CONCLUSIONS 1. Normal ventricle size and systolic function 2. Mild mitral and tricuspid regurgitation with no evidence of pulmonary hypertension Previewed by: Dr. Jackelyn Patino MD (Electronically Signed) Final Date: 17 December 2023 10:46
[2023-12-17 12:13] VITALS: BP 138/62; PULSE 63; RESP 18
--- NOTE | 2023-12-17 12:52 | PN ---
PROGRESS NOTE Mr. Brown was admitted to the hospital with episode of what seems to be a vasovagal phenomena. There was a question of a cardiac arrest at thump to the chest, but on device interrogation, there is no tachy or bradyarrhythmia. There was a question that no observer saw a heart rate of 44 while his AICD backup pacing rate is set at 50. However, since his arrival to the hospital here, his heart rate has been very rarely at 50 and when it was down to 50, he had an appropriate pacing. He is resting comfortably without symptoms. I am still awaiting the rhythm strip information from EMS. We have again made a phone call today. Vitals are stable. No JVD. S1, S2 are normal. A short systolic murmur is audible. Lungs are clear. Abdomen and lower extremities exam unchanged. This patient has ischemic heart disease, ventricular ectopy, ICD, paroxysmal atrial fibrillation, hypertension, hyperlipidemia. Plan is to continue current medications, increase activity, do a 2-week event monitor and I will see him in the office following that. We will continue same medications and to call for questions. If I see any significant bradycardia with inappropriate sensing, I will let him know, but so far, the device function seems to be good and he has a [employer] device. MMODL / IJN: [id number] /
--- NOTE | 2023-12-17 13:13 | P.PN ---
Progress Note - Text EMS report obtained including rhythm strips. Rhythm strips revealed a heart rate in the 50s with a lowest of 53. There was no significant bradycardia noted as previously thought by a family member. Pacemaker appears to be functioning appropriately. Dr. Azul spoke to patient and family again and discussed findings. Patient may be discharged home today with a 2-week event monitor and will follow-up postdischarge.
--- NOTE | 2023-12-18 07:02 | P.DS ---
Providers Date of admission: 12/15/23 14:07 Expected date of discharge: 12/17/23 Attending physician: Caden Lara MD Consults: 12/15/23 14:07 Consult Physician Routine Consulting Provider: [facility] Consult Reason/Comments: possible cardiac arrest, recurrent syncope Do you want consulting provider notified?: Yes Primary care physician: Segundo Lenin [facility] Course: Final diagnosis Acute syncopal episode likely orthostatic hypotension and ruled out arrhythmia with possible cardiac arrest.. Status post chest compression x 3 at home. AICD was never went off. Abnormal EKG Sinus bradycardia with sinus arrhythmia Paroxysmal atrial tachycardia Coronary artery disease history of stent placement Mild ischemic cardiomyopathy ejection fraction 40% with longer nonsustained V. tach. Status post ICD placement in November 2019 Recent influenza viral infection. Dehydration and volume depletion Hypertension Hearing disorder/deafness BPH on Flomax at home DVT prophylaxis patient is already on Eliquis. Discharge disposition Patient is being discharged in a stable condition with guarded prognosis to home patient will follow-up with Dr. Phelps in the outpatient setting upon discharge. Patient is to continue with event monitor on discharge and close outpatient follow-up with cardiology in 1 to 2 weeks as scheduled. Total time taken is greater than 35 minutes. Hospital course This is a 83-year-old male who was recently admitted with acute syncopal episode likely orthostatic hypotension with concerns of possible cardiac arrest and underwent compressions with CPR by bystanders. Patient has AICD that never fired off and was interrogated. Patient also underwent 2D echo with normal LV function and EF is 55-60. Patient seen and evaluated by cardiology monitored on telemetry monitoring overnight and has been cleared by cardiology for outpatient follow-up. Patient to receive an event monitor prior to discharge. Patient has been cleared by consultations. Please refer to cardiology note for further HPI. Patient reports to feeling well and extremely anxious to go home. Currently no reports of chest pain, shortness of breath, or palpitations. Patient is afebrile. No reports of nausea or vomiting and patient is tolerating diet. Patient will be discharged home today. Guarded prognosis Physical exam: Gen: This is a 83-year-old male who is awake, alert and oriented x 3, well- developed, well-nourished HEENT: Head is atraumatic, normocephalic. Pupils equal, round. Sclerae is anicteric. NECK: Supple. No JVD. No lymphadenopathy. No thyromegaly. LUNGS: Clear to auscultation. No wheezes or rhonchi. No intercostal retractions. HEART: S1, S2 are muffled ABDOMEN: Soft. Bowel sounds are present. No masses. No tenderness. EXTREMITIES: No pedal edema. No calf tenderness. NEUROLOGICAL: Patient is awake, alert and oriented x3. Cranial nerves 2 through 12 are grossly intact. Please refer to medication reconciliation sheet for a list of medications. The impression and plan of care has been dictated by Sarya Bach, Nurse Practitioner as directed. Dr. Gilbert MD I have performed a history and examination and MDM of this patient, discussed the same with the dictator, and agree with the dictator's assessment and plan as written ,documented as a scribe. Based on total visit time, I have performed more than 50% of the visit. Patient Condition at Discharge: Stable Plan - Discharge Summary Discharge Rx Participant: No New Discharge Prescriptions: Continue Simvastatin [Zocor] 20 mg PO DAILY Tamsulosin [Flomax] 0.4 mg PO DAILY Cholestyramine (with Sugar) [Cholestyramine Packet] 4 gm PO HS Metoprolol Succinate (ER) [Toprol XL] 25 mg PO HS lisinopriL [Zestril] 20 mg PO BID Magnesium (Unknown Strength) 1 dose PO HS Metoprolol Succinate [Toprol XL] 50 mg PO DAILY Apixaban [Eliquis] 5 mg PO BID Discharge Medication List Simvastatin [Zocor] 20 mg PO DAILY 02/28/17 [History] Cholestyramine (with Sugar) [Cholestyramine Packet] 4 gm PO HS 09/03/18 [History] Tamsulosin [Flomax] 0.4 mg PO DAILY 09/03/18 [History] Apixaban [Eliquis] 5 mg PO BID 12/15/23 [History] Magnesium (Unknown Strength) 1 dose PO HS 12/15/23 [History] Metoprolol Succinate (ER) [Toprol XL] 25 mg PO HS 12/15/23 [History] Metoprolol Succinate [Toprol XL] 50 mg PO DAILY 12/15/23 [History] lisinopriL [Zestril] 20 mg PO BID 12/15/23 [History] Follow up Appointment(s)/Referral(s): Vangie Azul MD [Family Provider] - 12/26/23 2:15 pm () Segundo Phelps MD [Primary Care Provider] - 1-2 days Activity/Diet/Wound Care/Special Instructions: Patient to receive an event monitor by nuclear medicine prior to discharge Activity limited until follow-up Follow-up with cardiology as discussed this week Continue taking medications as prescribed Follow-up with primary care provider on discharge Discharge Disposition: HOME SELF-CARE
--- NOTE | 2024-01-03 08:30 | EM ---
[14] DAY EVENT MONITOR REPORT: INDICATION: Syncope and collapse R55. START DATE: 12/17/2023 END DATE: 12/27/2023 Patient wore the monitor for 7.7 days which is 69% of total time of 14 days FINDINGS: Overall [good] quality study. Patient's baseline rhythm was sinus bradycardia. Baseline heart rate was 56 bpm. There were no observed atrial fibrillation, atrial flutter. There were no observed sinus pauses which were more than 2 second long. There were occasional episodes of paroxysmal atrial tachycardia of less than 10 beats There were 2 episodes of 12 beat nonsustained ventricular tachycardia on 12/24/2023 around 3:45 PM. Total of 4 episodes of NSVT reported during the 14- day study There was an 29-second episode of wide-complex tachycardia likely ventricular at a rate of 90 bpm on 12/24/2023 8:58 PM. Patient triggered events with no particular symptoms corresponded to sinus rhythm. Reji Bailey MD, FACC, RPVI Thank you for allowing [facility] to participate in this patient's care. Feel free to reach out in case of any followup questions. THANIA
== END 2023-12-17 15:54 | disposition home or self-care (01) ==
LOC: EC 12:18 → 2SICU 14:07 → INTOOBSV 14:07 → 3SCARD 14:48 → UNDODISIN 12-17 15:54
PROVIDERS: ADMIT Internal Medicine; ATTEND Internal Medicine
PROC: 4B02XTZ Measurement of Cardiac Defibrillator, External Approach (ICD-10-PCS; principal; 2023-12-15)
DX: R55 Syncope and collapse (principal); I25.5 Ischemic cardiomyopathy; I47.19 Other supraventricular tachycardia; E86.0 Dehydration; I48.0 Paroxysmal atrial fibrillation; E86.1 Hypovolemia; R00.1 Bradycardia, unspecified; I25.10 Atherosclerotic heart disease of native coronary artery without angina pectoris; I10 Essential (primary) hypertension; E78.5 Hyperlipidemia, unspecified; N40.0 Benign prostatic hyperplasia without lower urinary tract symptoms; M54.9 Dorsalgia, unspecified; M25.552 Pain in left hip; I25.2 Old myocardial infarction; N28.1 Cyst of kidney, acquired; H91.90 Unspecified hearing loss, unspecified ear; Z79.01 Long term (current) use of anticoagulants; Z79.899 Other long term (current) drug therapy; Z91.010 Allergy to peanuts; Z91.018 Allergy to other foods; Z97.4 Presence of external hearing-aid; Z45.02 Encounter for adjustment and management of automatic implantable cardiac defibrillator; Z95.810 Presence of automatic (implantable) cardiac defibrillator; Z11.52 Encounter for screening for COVID-19; Z11.59 Encounter for screening for other viral diseases; Z95.5 Presence of coronary angioplasty implant and graft
CPT/HCPCS: 96360; 96361; 99291; 36415; 93005; 93306; 93270; 80053; 80048 ×2; 83605; 83735; 84484; 85025 ×2; 85610; 85730; 81003; 83036; 87636; 71046; 70450; 74177; G0378 ×4

== ENCOUNTER 2023-12-25 03:28 | Inpatient (IN) | payer MEDICARE ==
--- NOTE | 2023-12-25 04:09 | ED ---
General Adult HPI - General Chief complaint: Recheck/Abnormal Lab/Rx Stated complaint: CARDIO SENT, ABNORMAL HEART MONITOR Time Seen by Provider: 12/25/23 03:36 Source: patient Mode of arrival: ambulatory Limitations: no limitations - History of Present Illness Initial comments: This patient is an 83-year-old male who presents to the emergency department after receiving a call from cardiology telling him that his monitor had recorded an abnormal event. Patient states that he was called at around 215. He notes that he had been asleep and was not having any symptoms. Patient states that he feels well, no chest pain, dyspnea, diaphoresis, nausea or vomiting. Onset/Timin -: hour(s) Severity scale (1-10): 0 Consistency: now resolved Improves with: none Worsens with: none Associated Symptoms: denies other symptoms Treatments Prior to Arrival: none - Related Data Home Medications Medication Instructions Recorded Confirmed Simvastatin [Zocor] 20 mg PO DAILY 02/28/17 12/25/23 Cholestyramine (with Sugar) 4 gm PO HS 09/03/18 12/25/23 [Cholestyramine Packet] Tamsulosin [Flomax] 0.4 mg PO DAILY 09/03/18 12/25/23 Apixaban [Eliquis] 5 mg PO BID 12/15/23 12/25/23 Metoprolol Succinate (ER) [Toprol 25 mg PO HS 12/15/23 12/25/23 XL] Metoprolol Succinate [Toprol XL] 50 mg PO DAILY 12/15/23 12/25/23 Previous Rx's Medication Instructions Recorded Acetaminophen Tab [Tylenol] 650 mg PO Q6HR PRN tab 12/25/23 Famotidine [Pepcid] 20 mg PO BID #60 tab 12/25/23 lisinopriL [Zestril] 10 mg PO BID #180 tab 12/25/23 Allergies Allergy/AdvReac Type Severity Reaction Status Date / Time almond Allergy LIPS SWELL Verified 12/25/23 07:28 peanut Allergy LIPS SWELL Verified 12/25/23 07:28 Review of Systems ROS Statement: Those systems with pertinent positive or pertinent negative responses have been documented in the HPI. ROS Other: All systems not noted in ROS Statement are negative. 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 Last Myocardial Infarction Date:: 1997 History of Any Multi-Drug Resistant Organisms: None Reported Past Surgical History: Cholecystectomy, Heart Catheterization, Heart Catheterization With Stent, Hernia Repair, Orthopedic Surgery Additional Past Surgical History / Comment(s): RIGHT KNEE ARTHROSCOPY , DEBBIE INGUINAL HERNIA REPAIR. Past Anesthesia/Blood Transfusion Reactions: No Reported Reaction Date of Last Stent Placement:: 1997 Type of Cardiac Device: Permanent Pacemaker Device Placement Date:: 10/2021 Past Psychological History: No Psychological Hx Reported Smoking Status: Never smoker Past Alcohol Use History: Rare Past Drug Use History: None Reported - Past Family History Mother Family Medical History: No Reported History, Cancer Additional Family Medical History / Comment(s): at 55 from breast cancer. Father Family Medical History: Congestive Heart Failure (CHF), Diabetes Mellitus Additional Family Medical History / Comment(s): at 65 with CHF. Brother(s) Family Medical History: No Reported History Additional Family Medical History / Comment(s): . General Exam Limitations: no limitations General appearance: alert, in no apparent distress Head exam: Present: atraumatic, normocephalic Eye exam: Present: normal appearance. Absent: scleral icterus, conjunctival injection ENT exam: Present: normal oropharynx Neck exam: Present: normal inspection Respiratory exam: Present: normal lung sounds bilaterally. Absent: respiratory distress, wheezes, rales, rhonchi, stridor Cardiovascular Exam: Present: normal rhythm, bradycardia, normal heart sounds. Absent: systolic murmur, diastolic murmur, rubs, gallop GI/Abdominal exam: Present: soft. Absent: distended, tenderness, guarding, rebound, rigid, mass Extremities exam: Present: normal inspection, normal capillary refill. Absent: pedal edema, calf tenderness Back exam: Present: normal inspection. Absent: CVA tenderness (R), CVA tenderness (L) Neurological exam: Present: alert Skin exam: Present: warm, dry, intact, normal color. Absent: rash Course Vital Signs 12/25/23 12/25/23 12/25/23 03:33 06:00 09:00 Temperature 97.4 F L 97.6 F Pulse Rate 75 50 L Pulse Rate [ 60 Pulse Oximetery ] Respiratory 18 18 16 Rate Blood Pressure 172/81 135/70 Blood Pressure 128/64 [Right Arm] O2 Sat by Pulse 96 98 93 L Oximetry 12/25/23 12/25/23 11:27 12:19 Temperature 97.7 F Pulse Rate 52 L 49 L Pulse Rate [ Pulse Oximetery ] Respiratory 18 18 Rate Blood Pressure 128/67 112/72 Blood Pressure [Right Arm] O2 Sat by Pulse 94 L 91 L Oximetry EKG Findings - EKG Comments: EKG Findings:: Rhythm appears to be sinus alternating with an intermittent paced atrial rhythm with a rate of 52 bpm - EKG Results: EKG: interpreted by ERMD - Blocks, Giltner, Hypertrophy, ST Abn: Repolarization changes or abnormalities: ST or T wave suggestive of ischemia (Anterolateral T inversions) Medical Decision Making - Medical Decision Making This patient is 83-year-old man who received call from cardiology directing him to come to the emergency based on a report from his cardiac monitoring device. The patient's workup here is unremarkable. Case is discussed with his physician to arrange admission. I discussed with Dr. Falcon, who is on-call for cardiology and states that they had been notified of a wide-complex tachycardia and that w as the reason for directing him to the department. He request that patient be admitted and cardiology will continue evaluating the patient. The patient had chest x-ray the food counselor is negative for acute infiltrate, pneumothorax, congestive heart failure Was pt. sent in by a medical professional or institution (, PA, PRINT SHOP CHIEF CLERK, urgent care, hospital, or [facility]...) When possible be specific @ -Yes, patient called by his licensing engineer to come in for abnormal monitor event Did you speak to anyone other than the patient for history (EMS, parent, family, police, friend...)? What history was obtained from this source @ -[No] Did you review nursing and triage notes (agree or disagree)? Why? @ -[I reviewed and agree with nursing and triage notes] Were old charts reviewed (outside hosp., previous admission, EMS record, old EKG, old radiological studies, urgent care reports/EKG's, [facility] records)? Report findings @ -[No old charts were reviewed] Differential Diagnosis (chest pain, altered mental status, abdominal pain women, abdominal pain men, vaginal bleeding, weakness, fever, dyspnea, syncope, headache, dizziness, GI bleed, back pain, seizure, CVA, palpatations, mental health, musculoskeletal)? @ -[Differential Palpitations Ventricular arrhythmias, atrial arrhythmias, myocardial infarction, anemia, thyrotoxicosis, electrolyte imbalance, hypokalemia, pulmonary embolism, pulmonar y disease, drugs, alcohol, anxiety, stress.... This is not meant to be an all-inclusive list. EKG interpreted by me (3pts min.). @ -[I interpreted As above] X-rays interpreted by me (1pt min.). @ -[None done] CT interpreted by me (1pt min.). @ -[None done] U/S interpreted by me (1pt. min.). @ -[None done] What testing was considered but not performed or refused? (CT, X-rays, U/S, labs)? Why? @ -[None] What meds were considered but not given or refused? Why? @ -[None] Did you discuss the management of the patient with other professionals (professionals i.e. , PA, PRINT SHOP CHIEF CLERK, lab, RT, psych nurse, high school social studies teacher, it lead, teacher, loan officer assistant, home health care case manager)? Give summary @ -[I discussed the case with the admitting physician and with licensing engineer and patient be admitted to have further evaluation. Was smoking cessation discussed for >3mins.? @ -[No] Was critical care preformed (if so, how long)? @ -[No] Were there social determinants of health that impacted care today? How? (Homelessness, low income, unemployed, alcoholism, drug addiction, transportation, low edu. Level, literacy, decrease access to med. care, [facility], rehab)? @ -[No] Was there de-escalation of care discussed even if they declined (Discuss DNR or withdrawal of care, Hospice)? DNR status @ -[No] What co-morbidities impacted this encounter? (DM, HTN, Smoking, COPD, CAD, Cancer, CVA, ARF, Chemo, Hep., AIDS, mental health diagnosis, sleep apnea, morbid obesity)? @ -[Hypertension. Previous myocardial infarction Was patient admitted / discharged? Hospital course, mention meds given and route, prescriptions, significant lab abnormalities, going to OR and other pertinent info. @ -[Admitted, as above Undiagnosed new problem with uncertain prognosis? @ -[No] Drug Therapy requiring intensive monitoring for toxicity (Heparin, Nitro, Insulin, Cardizem)? @ -[No] Were any procedures done? @ -[No] Diagnosis/symptom? @ -[Acute ventricular arrhythmia Acute, or Chronic, or Acute on Chronic? @ -[Acute Uncomplicated (without systemic symptoms) or Complicated (systemic symptoms)? @ -[Uncomplicated Side effects of treatment? @ -[No] Exacerbation, Progression, or Severe Exacerbation? @ -[No] Poses a threat to life or bodily function? How? (Chest pain, USA, VT, pneumonia, PE, COPD, DKA, ARF, appy, cholecystitis, CVA, Diverticulitis, Homicidal, Suicidal, threat to staff... and all critical care pts) @ -[Yes, ventricular arrhythmias may lead to sudden cardiac - Lab Data Result diagrams: 12/25/23 04:19 12/25/23 04:19 Lab Results 12/25/23 12/25/23 12/25/23 Range/Units 04:19 04:19 04:19 WBC 9.6 (3.8-10.6) k/uL RBC 5.52 (4.30-5.90) m/uL Hgb 16.5 (13.0-17.5) gm/dL Hct 50.3 (39.0-53.0) % MCV 91.1 (80.0-100.0) fL MCH 30.0 (25.0-35.0) pg MCHC 32.9 (31.0-37.0) g/dL RDW 13.1 (11.5-15.5) % Plt Count 161 (150-450) k/uL MPV 8.1 Neutrophils % 54 % Lymphocytes % 31 % Monocytes % 8 % Eosinophils % 3 % Basophils % 1 % Neutrophils # 5.2 (1.3-7.7) k/uL Lymphocytes # 3.0 (1.0-4.8) k/uL Monocytes # 0.8 (0-1.0) k/uL Eosinophils # 0.3 (0-0.7) k/uL Basophils # 0.1 (0-0.2) k/uL PT 11.5 (10.0-12.5) sec INR 1.1 (<1.2) APTT 27.0 (22.0-30.0) sec Sodium 136 L (137-145) mmol/L Potassium 4.4 (3.5-5.1) mmol/L Chloride 104 (98-107) mmol/L Carbon Dioxide 25 (22-30) mmol/L Anion Gap 7 mmol/L BUN 19 (9-20) mg/dL Creatinine 0.76 (0.66-1.25) mg/dL Est GFR (CKD-EPI)AfAm >90 (>60 ml/min/1.73 sqM) Est GFR (CKD-EPI)NonAf 84 (>60 ml/min/1.73 sqM) Glucose 112 H (74-99) mg/dL Calcium 9.7 (8.4-10.2) mg/dL Magnesium 2.0 (1.6-2.3) mg/dL Total Bilirubin 0.7 (0.2-1.3) mg/dL AST 46 (17-59) U/L ALT 52 H (4-49) U/L Alkaline Phosphatase 91 (38-126) U/L Troponin I (0.000-0.034) ng/mL Total Protein 7.4 (6.3-8.2) g/dL Albumin 4.4 (3.5-5.0) g/dL 12/25/23 12/25/23 12/25/23 Range/Units 04:19 08:39 10:29 WBC (3.8-10.6) k/uL RBC (4.30-5.90) m/uL Hgb (13.0-17.5) gm/dL Hct (39.0-53.0) % MCV (80.0-100.0) fL MCH (25.0-35.0) pg MCHC (31.0-37.0) g/dL RDW (11.5-15.5) % Plt Count (150-450) k/uL MPV Neutrophils % % Lymphocytes % % Monocytes % % Eosinophils % % Basophils % % Neutrophils # (1.3-7.7) k/uL Lymphocytes # (1.0-4.8) k/uL Monocytes # (0-1.0) k/uL Eosinophils # (0-0.7) k/uL Basophils # (0-0.2) k/uL PT (10.0-12.5) sec INR (<1.2) APTT (22.0-30.0) sec Sodium (137-145) mmol/L Potassium (3.5-5.1) mmol/L Chloride (98-107) mmol/L Carbon Dioxide (22-30) mmol/L Anion Gap mmol/L BUN (9-20) mg/dL Creatinine (0.66-1.25) mg/dL Est GFR (CKD-EPI)AfAm (>60 ml/min/1.73 sqM) Est GFR (CKD-EPI)NonAf (>60 ml/min/1.73 sqM) Glucose (74-99) mg/dL Calcium (8.4-10.2) mg/dL Magnesium (1.6-2.3) mg/dL Total Bilirubin (0.2-1.3) mg/dL AST (17-59) U/L ALT (4-49) U/L Alkaline Phosphatase (38-126) U/L Troponin I <0.012 <0.012 <0.012 (0.000-0.034) ng/mL Total Protein (6.3-8.2) g/dL Albumin (3.5-5.0) g/dL Disposition Clinical Impression: Wide-complex tachycardia Disposition: ADMITTED IP TO THIS HOSP Condition: Fair Is patient prescribed a controlled substance at d/c from ED?: No
[2023-12-25 04:30] LABS: Basophils # (A) 0.1 k/uL (0-0.2); Basophils % (A) 1 %; Eosinophils # (A) 0.3 k/uL (0-0.7); Eosinophils % (A) 3 %; HCT 50.3 % (39.0-53.0); HGB 16.5 gm/dL (13.0-17.5); Lymphocytes % (A) 31 %; MCHC 32.9 g/dL (31.0-37.0); MCV 91.1 fL (80.0-100.0); Mean Platelet Volume 8.1; Monocytes # (A) 0.8 k/uL (0-1.0); Monocytes % (A) 8 %; Neutrophils # (A) 5.2 k/uL (1.3-7.7); Neutrophils % (A) 54 %; Platelet Count 161 k/uL (150-450); RBC 5.52 m/uL (4.30-5.90); RDW 13.1 % (11.5-15.5); WBC 9.6 k/uL (3.8-10.6)
[2023-12-25 04:49] LABS: ALT 52 U/L (4-49); AST 46 U/L (17-59); African American GFR (CKD) >90 (>60 ml/min/1.73 sqM); Albumin 4.4 g/dL (3.5-5.0); Alkaline Phosphatase 91 U/L (38-126); Anion Gap 7 mmol/L; Blood Urea Nitrogen 19 mg/dL (9-20); Calcium 9.7 mg/dL (8.4-10.2); Carbon Dioxide 25 mmol/L (22-30); Chloride 104 mmol/L (98-107); Glucose 112 mg/dL (74-99); Non-African American GFR(CKD) 84 (>60 ml/min/1.73 sqM); Potassium 4.4 mmol/L (3.5-5.1); Sodium 136 mmol/L (137-145); Total Bilirubin 0.7 mg/dL (0.2-1.3); Total Protein 7.4 g/dL (6.3-8.2)
[2023-12-25 05:00] LABS: INR 1.1 (<1.2); Prothrombin Time 11.5 sec (10.0-12.5)
[2023-12-25] MEDS ORDERED: NALOXONE 0.4 MG/ML 1 ML VIAL IV PRN (06:00)
[2023-12-25] MEDS ORDERED: ACETAMINOPHEN TAB 325 MG TAB PO PRN (06:00)
[2023-12-25] MEDS: SODIUM CHLORIDE 0.9% 1,000 ML IV SCH (06:31)
--- NOTE | 2023-12-25 07:01 | XR ---
EXAMINATION TYPE: XR chest 1V portable DATE OF EXAM: 12/25/2023 Comparison: 12/15/2023 Clinical History: 83-year-old male dysrhythmia Findings: Electronic device projects over the left mediastinum. Left anterior chest wall AICD generator with ri ght atrial and ventricular leads. Fracture deformities redemonstrated right thoracic wall. Ongoing la rge opacity at the right base. Left lung and pleural space are relatively clear. 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 Consider outpatient surgery follow-up if not previously evaluated.
[2023-12-25] MEDS: APIXABAN 5 MG TAB PO SCH (09:23)
[2023-12-25] MEDS: TAMSULOSIN 0.4 MG CAP.ER.24H PO SCH (09:23)
[2023-12-25] MEDS: FAMOTIDINE 20 MG TAB PO SCH (09:23)
[2023-12-25] MEDS: METOPROLOL SUCCINATE (ER) 50 MG TAB.ER.24H PO SCH (09:23)
[2023-12-25] MEDS: lisinopriL 20 MG TAB PO SCH (09:23)
[2023-12-25] MEDS: ATORVASTATIN 10 MG TAB PO SCH (09:23)
--- NOTE | 2023-12-25 10:32 | P.CRDCN ---
History of Present Illness History of present illness: HISTORY OF PRESENT ILLNESS: This is a 83-year-old male with a past medical history significant for hypertension, hyperlipidemia, former nicotine dependence, ischemic cardiomyopathy, coronary artery disease with previous stenting, atrial fibrillation/flutter, ventricular tachycardia, and AICD implantation. Patient follows in the office with Dr. Azul. We have been asked to see the patient in consultation for arrhythmia. Patient examined at the bedside. Patient was admitted to the hospital earlier this month for a syncopal episode. Patient's ICD was interrogated with no evidence of arrhythmias or significant bradycardia. The patient was discharged home with a 2-week event monitor. The patient states he was called this morning and told he was having an arrhythmia and was instructed to come to the emergency room. Telemetry tracings from event monitor revealed episodes of nonsustained ventricular tachycardia. The patient states he was sleeping at the time. He denies having any chest pain or pressure. He denies any shortness of breath. He denies any dizziness or lightheadedness. He denies any further syncopal episodes. Vital signs are stable. 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 - Laboratory data: WBC 9.6. Hemoglobin 16.5. Platelet count 161. Sodium 136. Potassium 4.4. BUN 19. Creatinine 0.76. Magnesium 2.0. Troponin negative x 2. - Current home cardiac medications include Eliquis 5 mg twice a day, metoprolol succinate 50 mg in the morning and 25 mg at night, simvastatin 20 mg daily, and lisinopril 20 mg twice a day. - Most recent echocardiogram obtained in December 2023 reveals ejection fraction 55 to 60%, mild MR, mild TR. - Cardiac catheterization history: October 2019 revealing no significant progression of coronary artery disease. The previously stented diagonal with a bare-metal stent is widely patent. LAD and circumflex are free of significant disease. Ostial RCA has no more than 30% narrowing. Filling pressures are normal and there is no gradient across the aortic valve. -Patient underwent EP study in November 2019 revealing easily inducible monomorphic ventricular tachycardia. Patient underwent dual-chamber ICD implantation REVIEW OF SYSTEMS: At the time of my exam: CONSTITUTIONAL: Denies fever or chills. HEENT: Denies blurred vision, vision changes, or eye pain. Denies hemoptysis CARDIOVASCULAR: Denies chest pain. Denies orthopnea. Denies PND. Denies palpitations RESPIRATORY: Denies shortness of breath. GASTROINTESTINAL: Denies abdominal pain. Denies nausea or vomiting. HEMATOLOGIC: Denies bleeding disorders. GENITOURINARY: Denies any blood in urine. SKIN: Denies pruitis. Denies rash. PHYSICAL EXAM: VITAL SIGNS: Reviewed. GENERAL: Well-developed in no acute distress. HEENT: Head is normocephalic. Pupils are equal, round. Sclerae anicteric. Mucous membranes of the mouth are moist. Neck supple. No JVD or thyromegaly LUNGS: Respirations even and unlabored. Lungs essentially clear to auscultation bilaterally. HEART: Regular rate and rhythm. S1 and S2 heard. ABDOMEN: Soft. Nondistended. Nontender. EXTREMITIES: Normal range of motion. No clubbing or cyanosis. Peripheral pulses intact. No lower extremity edema NEUROLOGIC: Awake and alert. Oriented x 3. ASSESSMENT: Nonsustained ventricular tachycardia Recent hospitalization for syncopal episode History of easily inducible VT, status post dual-chamber ICD implantation, St , 2020 Coronary artery disease with previous stenting to the diagonal History of ischemic cardiomyopathy with recovered EF Paroxysmal atrial fibrillation/flutter Hypertension Hyperlipidemia Former nicotine dependence PLAN: No need to repeat echocardiogram as this was performed earlier this month Resume home cardiac medications Continue current dose of metoprolol Begin IV amiodarone bolus and drip per protocol. After infusion, begin oral amiodarone 200 mg twice daily Consult Dr. Gonzalez, site superintendent, for evaluation Continue telemetry monitoring Further recommendations pending patient course Nurse practitioner note has been reviewed by physician. Signing provider agrees with the documented findings, assessment, and plan of care documented by PIERCE [employer] PRESS OPERATOR as a scribe. Past Medical History Past Medical History: Hearing Disorder / Deafness, Hypertension, Myocardial Infarction ([place]) Additional Past Medical History / Comment(s): [place] 09/01/98/ BILAT HEARING AIDS., HX OF FLAIL CHEST (4 [facility]EN ACCIDENT APPROX 5 YRS AGO)., SEE CARDIOLOGY H & P. Last Myocardial Infarction Date:: 1997 History of Any Multi-Drug Resistant Organisms: None Reported Past Surgical History: Cholecystectomy, Heart Catheterization, Heart Catheterization With Stent, Hernia Repair, Orthopedic Surgery Additional Past Surgical History / Comment(s): RIGHT KNEE ARTHROSCOPY , DEBBIE INGUINAL HERNIA REPAIR. Past Anesthesia/Blood Transfusion Reactions: No Reported Reaction Date of Last Stent Placement:: 1997 Type of Cardiac Device: Permanent Pacemaker Device Placement Date:: 10/2021 Past Psychological History: No Psychological Hx Reported Smoking Status: Never smoker Past Alcohol Use History: Rare Past Drug Use History: None Reported - Past Family History Mother Family Medical History: No Reported History, Cancer Additional Family Medical History / Comment(s): at 55 from breast cancer. Father Family Medical History: Congestive Heart Failure (CHF), Diabetes Mellitus Additional Family Medical History / Comment(s): at 65 with CHF. Brother(s) Family Medical History: No Reported History Additional Family Medical History / Comment(s): . Medications and Allergies Home Medications Medication Instructions Recorded Confirmed Type Simvastatin [Zocor] 20 mg PO DAILY 02/28/17 12/25/23 History Cholestyramine (with Sugar) 4 gm PO HS 09/03/18 12/25/23 History [Cholestyramine Packet] Tamsulosin [Flomax] 0.4 mg PO DAILY 09/03/18 12/25/23 History Apixaban [Eliquis] 5 mg PO BID 12/15/23 12/25/23 History Magnesium (Unknown Strength) 1 dose PO HS 12/15/23 12/25/23 History Metoprolol Succinate (ER) [Toprol 25 mg PO HS 12/15/23 12/25/23 History XL] Metoprolol Succinate [Toprol XL] 50 mg PO DAILY 12/15/23 12/25/23 History lisinopriL [Zestril] 20 mg PO BID 12/15/23 12/25/23 History Allergies Allergy/AdvReac Type Severity Reaction Status Date / Time almond Allergy LIPS SWELL Verified 12/25/23 07:28 peanut Allergy LIPS SWELL Verified 12/25/23 07:28 Physical Exam Vitals: Vital Signs Temp Pulse Pulse Resp BP BP Pulse Ox 12/25/23 09:00 97.6 F 60 16 128/64 93 L 12/25/23 06:00 50 L 18 135/70 98 12/25/23 03:33 97.4 F L 75 18 172/81 96 Intake and Output 12/24/23 12/25/2324 22:59 06:59 14:59 Other: Weight 81.647 kg Results 12/25/23 04:19 12/25/23 04:19 Cardiac Enzymes 12/25/23 12/25/23 12/25/23 Range/Units 04:19 04:19 08:39 AST 46 (17-59) U/L Troponin I <0.012 <0.012 (0.000-0.034) ng/mL Coagulation 12/25/23 Range/Units 04:19 PT 11.5 (10.0-12.5) sec APTT 27.0 (22.0-30.0) sec CBC 12/25/23 Range/Units 04:19 WBC 9.6 (3.8-10.6) k/uL RBC 5.52 (4.30-5.90) m/uL Hgb 16.5 (13.0-17.5) gm/dL Hct 50.3 (39.0-53.0) % Plt Count 161 (150-450) k/uL Comprehensive Metabolic Panel 12/25/23 Range/Units 04:19 Sodium 136 L (137-145) mmol/L Potassium 4.4 (3.5-5.1) mmol/L Chloride 104 (98-107) mmol/L Carbon Dioxide 25 (22-30) mmol/L BUN 19 (9-20) mg/dL Creatinine 0.76 (0.66-1.25) mg/dL Glucose 112 H (74-99) mg/dL Calcium 9.7 (8.4-10.2) mg/dL AST 46 (17-59) U/L ALT 52 H (4-49) U/L Alkaline Phosphatase 91 (38-126) U/L Total Protein 7.4 (6.3-8.2) g/dL Albumin 4.4 (3.5-5.0) g/dL Current Medications Generic Name Dose Route Start Last Admin Trade Name Freq PRN Reason Stop Dose Admin Acetaminophen 650 mg 12/25/23 06:00 Acetaminophen Tab 325 Mg Tab PO Q6HR PRN Mild Pain or Fever > 100.5 Apixaban 5 mg 12/25/23 09:00 12/25/23 09:23 Apixaban 5 Mg Tab PO 5 mg BID PING Administration Protocol Atorvastatin Calcium 10 mg 12/25/23 09:00 12/25/23 09:23 Atorvastatin 10 Mg Tab PO 10 mg DAILY PING Administration Famotidine 20 mg 12/25/23 09:00 12/25/23 09:23 Famotidine 20 Mg Tab PO 20 mg BID PING Administration Sodium Chloride 1,000 mls @ 75 mls/hr 12/25/23 06:00 12/25/23 06:31 Saline 0.9% IV 75 mls/hr .[id number] PIGN Administration Amiodarone HCl 360 mg/ 200 mls @ 33.333 mls/hr 12/25/23 09:46 Dextrose/Water IV 12/25/23 15:45 .Q6H ONE Protocol 1 MG/MIN Amiodarone HCl 450 mg/ 250 mls @ 16.667 mls/hr 12/25/23 15:45 Dextrose/Water IV 12/26/23 09:44 .Q15H PING Protocol 0.5 MG/MIN Lisinopril 20 mg 12/25/23 09:00 12/25/23 09:23 Lisinopril 20 Mg Tab PO 20 mg BID PING Administration Metoprolol Succinate 25 mg 12/25/23 21:00 Metoprolol Succinate (Er) 25 Mg Tab.Er.24h PO HS PING Metoprolol Succinate 50 mg 12/25/23 09:00 12/25/23 09:23 Metoprolol Succinate (Er) 50 Mg Tab.Er.24h PO 50 mg DAILY PING Administration Naloxone HCl 0.2 mg 12/25/23 06:00 Naloxone 0.4 Mg/Ml 1 Ml Vial IV Q2M PRN Opioid Reversal Tamsulosin HCl 0.4 mg 12/25/23 09:00 12/25/23 09:23 Tamsulosin 0.4 Mg Cap.Er.24h PO 0.4 mg DAILY PING Administration Intake and Output 12/24/23 12/25/23 12/25/23 22:59 06:59 14:59 Other: Weight 81.647 kg 12/25/23 04:19 12/25/23 04:19
[2023-12-25] MEDS: DEXTROSE 5% IN WATER 100 ML with AMIODARONE 150 MG IV ONE (11:28)
[2023-12-25 11:36] VITALS: RESP 18
[2023-12-25] MEDS: AMIODARONE 360 MG in DEXTROSE 5% IN WATER 200 ML IV ONE (12:19)
--- NOTE | 2023-12-25 18:02 | P.HPIM ---
History of Present Illness H&P Date: 12/25/23 Chief Complaint: Arrhythmia possible ventricular tachycardia, ischemic cardi omyopathy, A-fib 83-year-old male my office patient with multimedical problems known to have history of hypertension, hyperlipidemia, ischemic cardiomyopathy, coronary artery disease with previous stenting, history of adverse ablation with atrial flutter with history of ventricular tachycardia post AICD implantation. Patient seen Dr. Azul cardiology on more regular basis he was hospitalized 10 days ago for syncopal episode patient ICD was interrogated with no evidence of arrhythmia or significant bradycardia Was discharged home with 2 weeks of event monitor. Patient has not been symptomatic but he received a phone call very kiss machine operator because of his event monitor showing placing of nonsustained ventricular tachycardia. Patient and his was instructed to come to the emergency department [facility] to be seen by cardiology and probably to start on amiodarone drip. When asking patient he was not symptomatic at the time this happened had no complaint of syncope or chest pain no shortness of breath. Full panel blood work will be done Patient will be seen cardiology to decide on further management and possibly starting amiodarone IV drip until the conclusion of his plan will be made. REVIEW OF SYSTEMS: CONSTITUTIONAL: Well-developed no acute respiratory distress. EYES: No icterus sclerae, no conjunctivitis. EARS, NOSE, MOUTH, THROAT, and FACE: No sore throat, lymphadenopathy, carotid bruits or deformity. RESPIRATORY: No SOB cough or wheezes. CARDIOVASCULAR: No CP, Palpitation, PND, Orthopnea, or angina. GASTROINTESTINAL: No Abd pain, Nausea or vomiting, no Diarrhea or constipation, No GI Bleed, no distention or masses. GENITOURINARY: Negative for Hematuria or UTI, no kidney stones. INTEGUMENT/BREAST: Negative for any muscular injury with mild osteoarthritis.. HEMATOLOGIC/LYMPHATIC: Negative for bleed or purpura. MUSCULOSKELTAL: Negative for Myalgia or arthralgia. NEURLOGICAL: No LOC, Sz or syncope, blurred vision dizziness or abnormality.. BEHAVIORAL/PSYCH: Negative. ENDOCRINE: Negative. Physical examination: General Appearance: Alert, cooperative, no distress, appears stated age. Neck HEENT: Supple, no lymphadenopathy, no thyroid enlargement, no carotid bruits. Lungs: Clear to auscultation without crackles or wheezes no rhonchi, no deformity. Chest Wall: Chest wall normal expansion with deep inspiration no tenderness and no deformity was found on exam, no costochondral pain or discomfort. Heart: Irregular rhythm and rate S1-S2 +3 positive slight irregularity. Back: Symmetric, no curvature, ROM normal, no CVA tenderness. Abdomen: Soft, non-tender, bowel sounds active all four quadrants, no masses, no organomegaly. Extremities: Extremities normal, atraumatic, no cyanosis or edema. Pulses: 2+ and symmetric. Skin: Skin color, texture, tugor normal, no rashes or lesions. Neurologic: Alert oriented x3 cranial nerves II through XII intact, no motor deficit, no abnormal balance or gait. Assessment and plan: 1 nonsustained ventricular tachycardia: The patient has an AICD, did not go off at this point. Patient also is running slight bradycardia at this point susana arently cardiology might start him on amiodarone drip initially may be loaded him on amiodarone 200 mg twice a day to receive electrophysiology to decide on further management. 2 syncopal episode: Recently patient has been doing well since he left the hospital this last time. 3 ischemic cardiomyopathy: Has been doing well on medical management continue metoprolol and lisinopril might need diuretics as well. 4 A-fib: Pulse rate is under control currently remain on Eliquis and metoprolol pulse rates running in the 50 at this point. 5 hyperlipidemia: Continue simvastatin 20 mg daily. 6 hypertension: Continue lisinopril 20 mg twice a day and metoprolol succinate 50 mg in a.m. with 25 mg at bedtime. 7 BPH: Watch for any urinary retention remain on tamsulosin. 8 GI prophylaxis: Will start Pepcid 20 mg twice a day. CODE STATUS: Full code. Admit patient to the hospital for possible 1 to 2 days. Past Medical History Past Medical History: Hearing Disorder / Deafness, Hypertension, Myocardial Infarction ([place]) Additional Past Medical History / Comment(s): [place] 09/01/98/ BILAT HEARING AIDS., HX OF FLAIL CHEST (4 [facility] ACCIDENT APPROX 5 YRS AGO)., SEE CARDIOLOGY H & P. Last Myocardial Infarction Date:: 1997 History of Any Multi-Drug Resistant Organisms: None Reported Past Surgical History: Cholecystectomy, Heart Catheterization, Heart Catheterization With Stent, Hernia Repair, Orthopedic Surgery Additional Past Surgical History / Comment(s): RIGHT KNEE ARTHROSCOPY , DEBBIE INGUINAL HERNIA REPAIR. Past Anesthesia/Blood Transfusion Reactions: No Reported Reaction Date of Last Stent Placement:: 1997 Type of Cardiac Device: Permanent Pacemaker Device Placement Date:: 10/2021 Past Psychological History: No Psychological Hx Reported Smoking Status: Never smoker Past Alcohol Use History: Rare Past Drug Use History: None Reported - Past Family History Mother Family Medical History: No Reported History, Cancer Additional Family Medical History / Comment(s): at 55 from breast cancer. Father Family Medical History: Congestive Heart Failure (CHF), Diabetes Mellitus Additional Family Medical History / Comment(s): at 65 with CHF. Brother(s) Family Medical History: No Reported History Additional Family Medical History / Comment(s): . Medications and Allergies Home Medications Medication Instructions Recorded Confirmed Type Simvastatin [Zocor] 20 mg PO DAILY 02/28/17 12/25/23 History Cholestyramine (with Sugar) 4 gm PO HS 09/03/18 12/25/23 History [Cholestyramine Packet] Tamsulosin [Flomax] 0.4 mg PO DAILY 09/03/18 12/25/23 History Apixaban [Eliquis] 5 mg PO BID 12/15/23 12/25/23 History Metoprolol Succinate (ER) [Toprol 25 mg PO HS 12/15/23 12/25/23 History XL] Metoprolol Succinate [Toprol XL] 50 mg PO DAILY 12/15/23 12/25/23 History lisinopriL [Zestril] 20 mg PO BID 12/15/23 12/25/23 History Acetaminophen Tab [Tylenol] 650 mg PO Q6HR PRN tab 12/25/23 Rx Famotidine [Pepcid] 20 mg PO BID #60 tab 12/25/23 Rx Allergies Allergy/AdvReac Type Severity Reaction Status Date / Time almond Allergy LIPS SWELL Verified 12/25/23 07:28 peanut Allergy LIPS SWELL Verified 12/25/23 07:28 Physical Exam Vitals: Vital Signs Temp Pulse Pulse Resp BP BP Pulse Ox 12/25/23 09:00 97.6 F 60 16 128/64 93 L 12/25/23 06:00 50 L 18 135/70 98 12/25/23 03:33 97.4 F L 75 18 172/81 96 Intake and Output 12/24/23 12/25/23 12/25/23 22:59 06:59 14:59 Other: Weight 81.647 kg Results CBC & Chem 7: 12/25/23 04:19 12/25/23 04:19 Labs: Abnormal Lab Results - Last 24 Hours (Table) 12/25/23 Range/Units 04:19 Sodium 136 L (137-145) mmol/L Glucose 112 H (74-99) mg/dL ALT 52 H (4-49) U/L
--- NOTE | 2023-12-25 18:03 | P.DS ---
Providers Date of admission: 12/25/23 14:54 Attending physician: Segundo Phelps Consults: 12/25/23 06:07 Consult Physician Routine Consulting Provider: Vangie Azul Consult Reason/Comments: your patient Do you want consulting provider notified?: Yes 12/25/23 09:49 Consult Physician Routine Consulting Provider: Javy Gonzalez Consult Reason/Comments: [place] Do you want consulting provider notified?: Yes Primary care physician: Segundo [facility] Hospital Course: Chief Complaint: Arrhythmia possible ventricular tachycardia, ischemic cardiomyopathy, A-fib 83-year-old male my office patient with multimedical problems known to have history of hypertension, hyperlipidemia, ischemic cardiomyopathy, coronary artery disease with previous stenting, history of adverse ablation with atrial flutter with history of ventricular tachycardia post AICD implantation. Patient seen Dr. Azul cardiology on more regular basis he was hospitalized 10 days ago for syncopal episode patient ICD was interrogated with no evidence of arrhythmia or significant bradycardia Was discharged home with 2 weeks of event monitor. Patient has not been symptomatic but he received a phone call very hoister because of his event monitor showing placing of nonsustained ventricular tachycardia. Patient and his was instructed to come to the emergency department [facility] to be seen by cardiology and probably to start on amiodarone drip. When asking patient he was not symptomatic at the time this happened had no complaint of syncope or chest pain no shortness of breath. Full panel blood work will be done Patient will be seen cardiology to decide on further management and possibly starting amiodarone IV drip until the conclusion of his plan will be made. REVIEW OF SYSTEMS: CONSTITUTIONAL: Well-developed no acute respiratory distress. EYES: No icterus sclerae, no conjunctivitis. EARS, NOSE, MOUTH, THROAT, and FACE: No sore throat, lymphadenopathy, carotid bruits or deformity. RESPIRATORY: No SOB cough or wheezes. CARDIOVASCULAR: No CP, Palpitation, PND, Orthopnea, or angina. GASTROINTESTINAL: No Abd pain, Nausea or vomiting, no Diarrhea or constipation, No GI Bleed, no distention or masses. GENITOURINARY: Negative for Hematuria or UTI, no kidney stones. INTEGUMENT/BREAST: Negative for any muscular injury with mild osteoarthritis.. HEMATOLOGIC/LYMPHATIC: Negative for bleed or purpura. MUSCULOSKELTAL: Negative for Myalgia or arthralgia. NEURLOGICAL: No LOC, Sz or syncope, blurred vision dizziness or abnormality.. BEHAVIORAL/PSYCH: Negative. ENDOCRINE: Negative. Physical examination: General Appearance: Alert, cooperative, no distress, appears stated age. Neck HEENT: Supple, no lymphadenopathy, no thyroid enlargement, no carotid bruits. Lungs: Clear to auscultation without crackles or wheezes no rhonchi, no deformity. Chest Wall: Chest wall normal expansion with deep inspiration no tenderness and no deformity was found on exam, no costochondral pain or discomfort. Heart: Irregular rhythm and rate S1-S2 +3 positive slight irregularity. Back: Symmetric, no curvature, ROM normal, no CVA tenderness. Abdomen: Soft, non-tender, bowel sounds active all four quadrants, no masses, no organomegaly. Extremities: Extremities normal, atraumatic, no cyanosis or edema. Pulses: 2+ and symmetric. Skin: Skin color, texture, tugor normal, no rashes or lesions. Neurologic: Alert oriented x3 cranial nerves II through XII intact, no motor deficit, no abnormal balance or gait. Assessment and plan: 1 nonsustained ventricular tachycardia: The patient has an AICD, did not go off at this point. Patient also is running slight bradycardia at this point apparently cardiology might start him on amiodarone drip initially may be loaded him on amiodarone 200 mg twice a day to receive electrophysiology to decide on further management. 2 syncopal episode: Recently patient has been doing well since he left the hospital this last time. 3 ischemic cardiomyopathy: Has been doing well on medical management continue metoprolol and lisinopril might need diuretics as well. 4 A-fib: Pulse rate is under control currently remain on Eliquis and metoprolol pulse rates running in the 50 at this point. 5 hyperlipidemia: Continue simvastatin 20 mg daily. 6 hypertension: Continue lisinopril 20 mg twice a day and metoprolol succinate 50 mg in a.m. with 25 mg at bedtime. 7 BPH: Watch for any urinary retention remain on tamsulosin. 8 GI prophylaxis: Will start Pepcid 20 mg twice a day. Hospital course: Patient was admitted to the hospital, seen cardiology initially start amiodarone drip and was supposed to be moving to amiodarone 200 mg twice a day apparently discussion with electrophysiology decided not to at this point to keep him on his metoprolol succinate and for patient to be seen by cardiology as an outpatient his devices will be continued to be monitored carefully and patient is stable to be discharged home today. Time spent on discharge the patient was more than 35 minutes. Patient Condition at Discharge: Fair Plan - Discharge Summary New Discharge Prescriptions: New Famotidine [Pepcid] 20 mg PO BID #60 tab Acetaminophen Tab [Tylenol] 650 mg PO Q6HR PRN tab PRN Reason: Mild Pain Or Fever > 100.5 lisinopriL [Zestril] 10 mg PO BID #180 tab Continue Simvastatin [Zocor] 20 mg PO DAILY Tamsulosin [Flomax] 0.4 mg PO DAILY Cholestyramine (with Sugar) [Cholestyramine Packet] 4 gm PO HS Metoprolol Succinate (ER) [Toprol XL] 25 mg PO HS Metoprolol Succinate [Toprol XL] 50 mg PO DAILY Apixaban [Eliquis] 5 mg PO BID Discontinued lisinopriL [Zestril] 20 mg PO BID Magnesium (Unknown Strength) 1 dose PO HS Discharge Medication List Simvastatin [Zocor] 20 mg PO DAILY 02/28/17 [History] Cholestyramine (with Sugar) [Cholestyramine Packet] 4 gm PO HS 09/03/18 [History] Tamsulosin [Flomax] 0.4 mg PO DAILY 09/03/18 [History] Apixaban [Eliquis] 5 mg PO BID 12/15/23 [History] Metoprolol Succinate (ER) [Toprol XL] 25 mg PO HS 12/15/23 [History] Metoprolol Succinate [Toprol XL] 50 mg PO DAILY 12/15/23 [History] Acetaminophen Tab [Tylenol] 650 mg PO Q6HR PRN tab 12/25/23 [Rx] Famotidine [Pepcid] 20 mg PO BID #60 tab 12/25/23 [Rx] lisinopriL [Zestril] 10 mg PO BID #180 tab 12/25/23 [Rx] Follow up Appointment(s)/Referral(s): Segundo Phelps MD [Primary Care Provider] - 1-2 days Jackelyn Patino MD [STAFF PHYSICIAN] - 1 Week Discharge Disposition: HOME SELF-CARE
[2023-12-25] MEDS: AMIODARONE 450 MG in DEXTROSE 5% IN WATER 250 ML IV SCH (18:13)
[2023-12-25 19:01] VITALS: BP 127/77; PULSE 60; TEMP 98.2
--- NOTE | 2023-12-25 19:46 | P.EPPROC ---
- EP Procedure Note Electrophysiology Procedure Note: Dual-chamber ICD interrogated and reprogrammed P waves 2.2 mV, pacing impedance 540 ohms R waves 11.7 mV, pacing patent 490 ohms High-voltage impedance 82 ohms No VT or VF recorded for this admission as well as for the recent admission for syncope The following changes were made Pacing changed to DDDR 60-120 ppm A monitor zone for VT was added at 150 beats a minute VT therapies begin at 176 beats a minute VF therapies at 222 beats a minute Appropriate antitachycardia pacing cardioversion defibrillation was programmed The reason for the recent episode of syncope is most likely orthostatic or vasovagal in origin not rhythmic His current event monitor shows AIVR at 70 beats a minute, asymptomatic which does not require any additional treatment Amiodarone discontinued transferred
--- NOTE | 2023-12-25 19:47 | P.EPCON ---
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 In the past the patient would quickly sit down and recover Occasionally when his will take his blood pressure quickly, his blood pressure would be quite low on these occasions Likely orthostatic/vasovagal events The last episode of loss of consciousness was associated with absence of pulse consistent with a drop in blood pressure ICD interrogation did not reveal any tachy arrhythmias or ICD therapies An event monitor was given which showed AIVR, asymptomatic ICD was interrogated today and no sustained arrhythmias were noted The patient has a history of coronary artery disease status post coronary stenting to the diagonal vessel many years back and nonobstructive disease in the left circumflex and the LAD History of abnormal EP study with 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 The dual-chamber ICD was originally programmed to 50 bpm, DDD Since his heart rates are higher than this, there is no evidence for pacing on twelve-lead EKG Plan Reduce the dose of lisinopril to 20 mg once daily Continue simvastatin Keep LDL well below 70 mg/dL Continue metoprolol at the current dose Adequate hydration The dual-chamber ICD was reprogrammed to DDDR 60 bpm However if he suffers hypotension on account of a vasovagal episode his pulse may be undetectable This does not mean that there is any fault with the pacemaker part of the defibrillator There is no indication for amiodarone and I discontinued it It is most likely this patient has orthostatic/vasovagal episodes 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 This has happened in the past on numerous occasions and low blood pressure has also been documented once Sometimes associated with nausea and sweating Never associated with a cardiac arrest or a need for defibrillation or palpitations The device was also reprogrammed to detect VT between 115 176. A monitor zone has been programmed History Patient states that he was asked to come in because of an abnormal reading on the monitor. 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 This has happened to him in the past and usually he tries to sit down quickly and avert the episode The last time when this happened he could not However there is no arrhythmias recorded on the dual ICD, Klein Past history CAD Coronary stenting Diagnostic EP study in 2019 which revealed fast inducible VT greater than 200 beats a minute Dual-chamber ICD was implanted at that time On examination Blood pressure is normal Heart sounds are normal Breath sounds are clear No rhonchi no crackles Normal heart rate and blood pressure Labs within normal limits Normal hemoglobin Normal electrolytes Normal cardiac enzymes Transfer text
[2023-12-25] MEDS ORDERED: METOPROLOL SUCCINATE (ER) 25 MG TAB.ER.24H PO SCH (21:00)
== END 2023-12-25 18:44 | disposition home or self-care (01) | DRG 315 ==
LOC: EC 03:28 → 6NMEDSUR 06:00 → 3SCARD 09:58 → OBSVTOIN 14:54 → 3SCARD 15:57
PROVIDERS: ADMIT Internal Medicine Geriatric Medicine; ATTEND Internal Medicine Geriatric Medicine
PROC: 4B02XTZ Measurement of Cardiac Defibrillator, External Approach (ICD-10-PCS; principal; 2023-12-25)
DX: R94.39 Abnormal result of other cardiovascular function study (principal); I47.20 Ventricular tachycardia, unspecified; I25.5 Ischemic cardiomyopathy; I25.2 Old myocardial infarction; R00.1 Bradycardia, unspecified; R55 Syncope and collapse; I25.10 Atherosclerotic heart disease of native coronary artery without angina pectoris; I10 Essential (primary) hypertension; I48.0 Paroxysmal atrial fibrillation; H91.90 Unspecified hearing loss, unspecified ear; E78.5 Hyperlipidemia, unspecified; Z79.899 Other long term (current) drug therapy; N40.0 Benign prostatic hyperplasia without lower urinary tract symptoms; I08.1 Rheumatic disorders of both mitral and tricuspid valves; K44.9 Diaphragmatic hernia without obstruction or gangrene; Z82.49 Family history of ischemic heart disease and other diseases of the circulatory system; Z79.01 Long term (current) use of anticoagulants; Z86.79 Personal history of other diseases of the circulatory system; Z87.891 Personal history of nicotine dependence; Z95.810 Presence of automatic (implantable) cardiac defibrillator; Z95.5 Presence of coronary angioplasty implant and graft; Z97.4 Presence of external hearing-aid; Z87.19 Personal history of other diseases of the digestive system
CPT/HCPCS: 36415; 71045; 80053; 83735; 84484; 85025; 85610; 85730; 93005; 99285

== ENCOUNTER → 2024-02-26 | Outpatient (CLI) | payer MEDICARE ==
--- NOTE | 2024-02-28 22:37 | CT ---
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 TECHNIQUE: CT of the lumbar spine is performed on a spiral scan at 3 mm thick sections. Reconstructed images are performed in the coronal and sagittal planes. FINDINGS: There is a grade 1 spondylolisthesis of L4 anterior to L5. Vacuum disc phenomenon is present. The remaining disc heights are preserved. Vertebral body heights are preserved. Mild disc bulge and anterior thecal sac flattening L2-3. No spinal canal stenosis is present. Disc uncovering is present L4-5 with mild anterior thecal sac flattening. Facet hypertrophy and ligam entum flavum laxity is mild posterior lateral thecal sac compression. No spinal canal stenosis presen t. Severe right and moderate to severe left foraminal stenosis present Some moderate foraminal narrowing is present L5-S1. IMPRESSION: 1. Grade 1 spondylolisthesis of flow for anterior L5. 2. Foraminal narrowing L4-5 and L5-S1 discussed above.
== END | disposition home or self-care (01) ==
LOC: RADCTMAIN 10:08
PROVIDERS: ATTEND Physical Medicine & Rehabilitation
DX: M48.062 Spinal stenosis, lumbar region with neurogenic claudication (principal); M43.16 Spondylolisthesis, lumbar region; M41.26 Other idiopathic scoliosis, lumbar region; M47.816 Spondylosis without myelopathy or radiculopathy, lumbar region; M51.36 Other intervertebral disc degeneration, lumbar region; M51.16 Intervertebral disc disorders with radiculopathy, lumbar region
CPT/HCPCS: 72131